=== PATIENT | female | born 2000 | race Caucasian/White ===

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

== ENCOUNTER 2019-05-10 12:38 | Inpatient (IN) ==
[2019-05-10 13:26] LABS: VBG HCO3 21 mEq/L (21-27); VBG PCO2 28 mmHg (41-51); VBG PH 7.48 pH Units (7.32-7.42); VBG PO2 130 mmHg (25-50)
[2019-05-10 13:29] LABS: Basophils % 0.1 %; Hematocrit 36.4 % (35.3-44.9); Hemoglobin 12.3 g/dL (11.5-15.4); Immature Granulocytes % 0.6 % (0-4); Lymphocytes # 1.5 K/mcL (0.6-4.6); Lymphocytes % 7.9 %; Mean Corpuscular HGB Conc 33.8 g/dL (31.6-35.5); Mean Corpuscular Hemoglobin 30.6 pg (28.0-33.3); Mean Corpuscular Volume 90.5 fL (83.0-100.0); Mean Platelet Volume 10.1 fL (9.4-12.4); Monocytes # 2.8 K/mcL (0.0-1.3); Monocytes % 14.2 %; Platelet Count 201 K/mcL (140-400); Red Blood Count 4.02 M/mcL (3.82-4.97); Red Cell Distribution Width 12.3 % (11.5-14.5); Segmented Neutrophils % 77.2 %; White Blood Count 19.4 K/mcL (4.3-11.1)
[2019-05-10] MEDS: 0.9 % Sodium Chloride 1,000 ML IVC SCH ×3 (13:30→16:44)
--- NOTE | 2019-05-10 13:34 | Emergency Department Note ---
Disposition Clinical Impression: Fever Qualifiers: Fever type: unspecified Qualified Code(s): R50.9 - Fever, unspecified Disposition: Still a Patient Condition: Fair Referrals: Eliseo Campbell DO [Primary Care Provider] - Time of Disposition: 13:34 General Adult HPI - General Chief complaint: ED Nausea/Vomiting/Diarrhea Stated complaint: "poss dka" Time Seen by Provider: 05/10/19 12:44 Source: patient Limitations: no limitations - History of Present Illness Pain Scale: 10 - Related Data Home Medications Medication Instructions Recorded Confirmed Lantus 65 unit SQ HS 02/11/19 04/22/19 NovoLOG SQ 5-6XD PRN 02/11/19 Previous Rx's Medication Instructions Recorded cephALEXin [Keflex] 500 mg PO QID #28 capsule 04/20/19 Ciprofloxacin [Cipro] 500 mg PO BID #14 tablet 04/22/19 Allergies Allergy/AdvReac Type Severity Reaction Status Date / Time insulin glargine AdvReac Rash Verified 04/22/19 01:02 [From Basaglar KwikPen U-100 Insulin] sulfamethoxazole AdvReac See Verified 04/22/19 01:02 [From Bactrim] Comments trimethoprim [From Bactrim] AdvReac See Verified 04/22/19 01:02 Comments Past Medical History - Past Medical History Medical history: Reports: non-contributory, asthma, diabetes Surgical history: Reports: non-contributory, other Psychiatric history: Reports: anxiety, ADHD, bipolar, depression, PTSD - Social History Smoking Status: Current every day smoker Smokeless Tobacco Status: No Alcohol use: Reports: none Drug use: Reports: none Physical Exam - General Limitations: no limitations General appearance: alert, in no apparent distress Course Vital Signs Temperature 102.4 F H 05/10/19 12:39 Pulse Rate 140 05/10/19 12:39 Respiratory Rate 18 05/10/19 12:39 Blood Pressure 107/75 05/10/19 12:39 O2 Sat by Pulse Oximetry 97 05/10/19 12:39 Temperature 102.4 F H 05/10/19 12:39 Pulse Rate 140 05/10/19 12:39 Respiratory Rate 18 05/10/19 12:39 Blood Pressure 107/75 05/10/19 12:39 O2 Sat by Pulse Oximetry 97 05/10/19 12:39 Oxygen Delivery Oxygen Delivery Room Air Attestation Statement - Attestation Attestation: I reviewed the residents documentation and agree with the residents assessment and plan of care. I have personally had face to face time with the patient. (Brief History, Brief Exam, and MDM) I personally supervised and was present for the sinha/critical portions of the following procedures completed by the resident: EKG 18 year old female presents to the ED with complaints of ketones and fever and vomitting with low back pain. PAtient states that she is a type I diabetic and otherwise follows at [facility] for her diabetes management. Patient states that she was otherwise treated for a kidney infection one month ago and may have been in DKA then and was offered admission or transfer and she declined because she did not think she was in DKA because he bicarb was otherwise normal Patinet appears to be presensting simliarly now. She states that her care team most recently re-adjusted and lwoered her insulin therapy and she thinks this may hev thrown her into DKA. We have started sepsis prpotocol and will otherwise evluate for DKA and then admit/transfer
[2019-05-10] MEDS ORDERED: cefTRIAXone 1,000 MG in 0.9 % Sodium Chloride Mini Bag 100 ML IVPB ONE (13:35)
[2019-05-10 13:40] LABS: INR 1.2; Prothrombin Time 13.2 Seconds (9.4-12.1)
[2019-05-10 13:43] LABS: Activated Partial Thrombo Time 28.8 Seconds (26.0-36.0)
[2019-05-10 13:44] LABS: Bilirubin,Urine Negative (Negative); Blood,Urine Small (Negative); Clarity,Urine Cloudy (Clear); Color,Urine Yellow (Yellow); Glucose,Urine (UA) Normal (Normal); Ketones,Urine 40 mg/dL (Negative); Leukocyte Esterase,Urine Large (Negative); Nitrite,Urine Positive (Negative); PH,Urine 6.5 pH Units (5.0-8.0); Protein,Urine 30 mg/dL (Neg-Trace); Urobilinogen,Urine Normal (Normal)
[2019-05-10 13:46] LABS: Bacteria,Urine Many per hpf (None-Few); Hyaline Casts,Urine None Seen per lpf (None-Few); Squamous Epithelial Cell,Urine Many per lpf (None-Few); WBC,Urine TNTC per hpf (0-3)
[2019-05-10 13:59] LABS: Troponin I < 0.03 ng/mL (< 0.04)
[2019-05-10 14:02] LABS: Alanine Aminotransferase 10 Units/L (7-52); Albumin/Globulin Ratio 1.3 (1.1-2.2); Alkaline Phosphatase 75 Units/L (34-104); Aspartate Amino Transferase 13 Units/L (13-39); BUN/Creatinine Ratio 10 (6-26); Bilirubin,Direct 0.1 mg/dL (0.0-0.2); Bilirubin,Indirect 0.6 mg/dL (0.0-1.2); Bilirubin,Total 0.7 mg/dL (0.3-1.0); Blood Urea Nitrogen 5 mg/dL (6-20); Calcium 9.3 mg/dL (8.6-10.3); Carbon Dioxide 23 mEq/L (23-29); Chloride 101 mEq/L (98-107); Globulin 3.1 g/dL (2.4-3.5); Glucose 107 mg/dL (70-105); Lipase < 3 Units/L (11-82); Magnesium 1.7 mg/dL (1.6-2.6); Osmolality,Calculated 280 (280-300); Phosphorous 2.5 mg/dL (2.7-4.5); Potassium 3.6 mEq/L (3.5-5.1); Sodium 136 mEq/L (136-145); Total Protein 7.1 g/dL (6.4-8.9); eGFR For African Americans > 60; eGFR For Non-African Americans > 60
--- NOTE | 2019-05-10 14:12 | Emergency Department Note ---
Disposition Clinical Impression: Pyelonephritis Fever Qualifiers: Fever type: unspecified Qualified Code(s): R50.9 - Fever, unspecified Sepsis Qualifiers: Sepsis type: sepsis due to unspecified organism Qualified Code(s): A41.9 - Sepsis, unspecified organism Type 1 diabetes mellitus Qualifiers: Diabetes mellitus complication status: with other specified complication Qualified Code(s): E10.69 - Type 1 diabetes mellitus with other specified complication Disposition: Admitted As Inpatient Condition: Fair Referrals: Eliseo Campbell DO [Primary Care Provider] - Forms: ED Satisfaction Letter Time of Disposition: 14:17 General Adult HPI - General Chief complaint: ED Nausea/Vomiting/Diarrhea Stated complaint: "poss dka" Time Seen by Provider: 05/10/19 12:44 Source: patient Mode of arrival: ambulatory Limitations: no limitations Nursing Notes Reviewed: Yes Vital Signs Reviewed: Yes - History of Present Illness HPI Narrative: 18-year-old female to see emergency department for lower back pain, nausea and not feeling well. Patient is a type I diabetic is insulin-dependent does have an insulin pump. Said her blood sugars have been a little more erratic than normal all up in the 200s and then into the 80s. Said normally she is between 100 and 120. She says she does not feel like she is in DKA is normally she has abdominal pain this times for back pain. She recently was diagnosed with uri nary tract infection back on April 21 she was first started on Keflex that was changed to ciprofloxacin. Patient has not been she did complete the entire course has not been on antibiotics since then. She is not having any dysuria at this time is complaining of his lower back pain. She is not having any abdominal pain sure she has been nauseous with one episode nonbilious nonbloody emesis. Otherwise no other complaints at this time. Pain Scale: 10 - Related Data Home Medications Medication Instructions Recorded Confirmed Lantus 65 unit SQ HS 02/11/19 04/22/19 NovoLOG SQ 5-6XD PRN 02/11/19 Previous Rx's Medication Instructions Recorded cephALEXin [Keflex] 500 mg PO QID #28 capsule 04/20/19 Ciprofloxacin [Cipro] 500 mg PO BID #14 tablet 04/22/19 Allergies Allergy/AdvReac Type Severity Reaction Status Date / Time insulin glargine AdvReac Rash Verified 06/07/19 01:02 [From Basaglar KwikPen U-100 Insulin] sulfamethoxazole AdvReac See Verified 04/22/19 01:02 [From Bactrim] Comments trimethoprim [From Bactrim] AdvReac See Verified 04/22/19 01:02 Comments All systems ED: reviewed and negative except as stated. Review of Systems: As Per HPI Past Medical History - Past Medical History Attestation: Yes The following information was validated with the patient. Source: patient Medical history: Reports: non-contributory, asthma, diabetes Surgical history: Reports: non-contributory, other Psychiatric history: Reports: anxiety, ADHD, bipolar, depression, PTSD - Social History Smoking Status: Current every day smoker Smokeless Tobacco Status: No Alcohol use: Reports: none Drug use: Reports: none Physical Exam - General Limitations: no limitations General appearance: alert, in no apparent distress - Head Head exam: atraumatic, normocephalic, normal inspection - Eye Eye exam: Present: normal appearance, PERRL, EOMI - ENT ENT exam: normal exam, normal oropharynx, mucous membranes moist - Neck Neck exam: Present: normal inspection, full ROM, trachea midline - Chest Chest inspection: Present: normal inspection, symmetric chest wall rise - Respiratory Respiratory exam: Present: normal lung sounds bilaterally - Cardiovascular Cardiovascular exam: Present: regular rate, normal rhythm, normal heart sounds - Abdominal Exam Abdominal exam: Present: soft, Non-Tender. Absent: tenderness, distention, guarding, rebound, rigidity, psoas sign, obturator sign, heel tap sign, 's sign, Rovsing's sign, tenderness at McBurney's Point - Extremities Exam Extremities exam: Present: normal inspection, full ROM. Absent: tenderness, pedal edema - Back Exam Back exam: Present: normal inspection, full ROM. Absent: tenderness, CVA tenderness (R), CVA tenderness (L) - Neurological Exam Neurological exam: Present: alert, oriented X3 - Skin Skin exam: Present: warm, dry, intact, normal color Course Vital Signs Temperature 102.4 F H 05/10/19 12:39 Pulse Rate 140 05/10/19 12:39 Respiratory Rate 18 05/10/19 12:39 Blood Pressure 107/75 05/10/19 12:39 O2 Sat by Pulse Oximetry 97 05/10/19 12:39 Temperature 102.4 F H 05/10/19 12:39 Pulse Rate 123 05/10/19 13:51 Respiratory Rate 18 05/10/19 13:51 Blood Pressure 129/64 05/10/19 13:51 O2 Sat by Pulse Oximetry 99 05/10/19 13:51 Oxygen Delivery Oxygen Delivery Room Air Medical Decision Making - MDM Narrative Medical decision making narrative: Patient presented here for abnormal blood sugars as well as lower back pain. When we saw patient she did not seem be in signs of DKA but she was diaphoretic. She is not having any Kussmaul breathing. Labs came back not showing patient to be in DKA. Her VBG was not showing any acidosis. Patient did receive 1 L of IV fluids. Urinalysis came back nitrite positive based on previous culture it is sensitive to ceftriaxone so we did give her as dose of IV ceftriaxone at this time. I am diagnosing patient with acute pyelonephritis causing abnormal blood sugars. I spoke with patient about admission and she is going to need IV antibiotics and she does agree with this plan. Patient did meet Sirs criteria she is in sepsis at this time is not any severe sepsis or septic shock. Patient did receive her 30 mL/kg bolus with getting 2 L of IV fluids. Patient responded well that. She was never hypotensive. Never needed pressors.. Did speak with the hospitalist Dr. Ball who agreed to accept the patient to their service. Patient is admitted in stable condition. They did request a CT abdomen and pelvis with contrast to be done and they will follow up on the results. I updated the patient of this and a great this plan. - Medical Records Medical records reviewed: Yes I reviewed the patient's medical records. - Lab Data Lab results reviewed: Yes I reviewed the patient's lab results. Result diagrams: 05/10/19 13:06 05/10/19 13:06 Lab Results 05/10/19 05/10/19 05/10/19 Range/Units 13:06 13:06 13:06 WBC 19.4 H (4.3-11.1) K/mcL RBC 4.02 (3.82-4.97) M/mcL Hgb 12.3 (11.5-15.4) g/dL Hct 36.4 (35.3-44.9) % MCV 90.5 (83.0-100.0) fL MCH 30.6 (28.0-33.3) pg MCHC 33.8 (31.6-35.5) g/dL RDW 12.3 (11.5-14.5) % Plt Count 201 (140-400) K/mcL MPV 10.1 (9.4-12.4) fL Immature Gran % 0.6 (0-4) % Seg Neutrophils % 77.2 % Lymphocytes % 7.9 % Monocytes % 14.2 % Eosinophils % 0.0 % Basophils % 0.1 % Neutrophils # 15.0 H (1.6-8.9) K/mcL Lymphocytes # 1.5 (0.6-4.6) K/mcL Monocytes # 2.8 H (0.0-1.3) K/mcL Eosinophils # 0.0 (0.0-0.6) K/mcL Basophils # 0.0 (0.0-0.2) K/mcL PT 13.2 H (9.4-12.1) Seconds INR 1.2 APTT 28.8 (26.0-36.0) Seconds VBG pH (7.32-7.42) pH Units VBG pCO2 (41-51) mmHg VBG pO2 (25-50) mmHg VBG HCO3 (21-27) mEq/L Sodium 136 (136-145) mEq/L Potassium 3.6 (3.5-5.1) mEq/L Chloride 101 (98-107) mEq/L Carbon Dioxide 23 (23-29) mEq/L BUN 5 L (6-20) mg/dL Creatinine 0.52 L (0.60-1.20) mg/dL Est GFR ( Amer) > 60 Est GFR (Non-Af Amer) > 60 BUN/Creatinine Ratio 10 (6-26) Glucose 107 H (70-105) mg/dL Calculated Osmolality 280 (280-300) Lactic Acid (0.5-2.2) mmol/L Calcium 9.3 (8.6-10.3) mg/dL Phosphorus 2.5 L (2.7-4.5) mg/dL Magnesium 1.7 (1.6-2.6) mg/dL Total Bilirubin 0.7 (0.3-1.0) mg/dL Direct Bilirubin 0.1 (0.0-0.2) mg/dL Indirect Bilirubin 0.6 (0.0-1.2) mg/dL AST 13 (13-39) Units/L ALT 10 (7-52) Units/L Alkaline Phosphatase 75 (34-104) Units/L Troponin I < 0.03 (< 0.04) ng/mL Serum Total Protein 7.1 (6.4-8.9) g/dL Albumin 4.0 (3.5-5.7) g/dL Globulin 3.1 (2.4-3.5) g/dL Albumin/Globulin Ratio 1.3 (1.1-2.2) Lipase < 3 L (11-82) Units/L Beta-Hydroxybutyric Acd (0.02-0.27) mmol/L Serum , Qual (Negative) Urine Color (Yellow) Urine Clarity (Clear) Urine pH (5.0-8.0) pH Units Ur Specific [place] (1.010-1.025) Urine Protein (Neg-Trace) mg/dL Urine Glucose (UA) (Normal) mg/dL Urine Ketones (Negative) mg/dL Urine Blood (Negative) Urine Nitrite (Negative) Urine Bilirubin (Negative) Urine Urobilinogen (Normal) mg/dL Ur Leukocyte Esterase (Negative) Urine Microscopic RBC (0-3) per hpf Urine Microscopic WBC (0-3) per hpf Ur Squamous Epith Cells (None-Few) per lpf Urine Bacteria (None-Few) per hpf Hyaline Casts (None-Few) per lpf Ur Culture Indicated? (NO) 05/10/19 05/10/19 05/10/19 Range/Units 13:06 13:06 13:06 WBC (4.3-11.1) K/mcL RBC (3.82-4.97) M/mcL Hgb (11.5-15.4) g/dL Hct (35.3-44.9) % MCV (83.0-100.0) fL MCH (28.0-33.3) pg MCHC (31.6-35.5) g/dL RDW (11.5-14.5) % Plt Count (140-400) K/mcL MPV (9.4-12.4) fL Immature Gran % (0-4) % Seg Neutrophils % % Lymphocytes % % Monocytes % % Eosinophils % % Basophils % % Neutrophils # (1.6-8.9) K/mcL Lymphocytes # (0.6-4.6) K/mcL Monocytes # (0.0-1.3) K/mcL Eosinophils # (0.0-0.6) K/mcL Basophils # (0.0-0.2) K/mcL PT (9.4-12.1) Seconds INR APTT (26.0-36.0) Seconds VBG pH (7.32-7.42) pH Units VBG pCO2 (41-51) mmHg VBG pO2 (25-50) mmHg VBG HCO3 (21-27) mEq/L Sodium (136-145) mEq/L Potassium (3.5-5.1) mEq/L Chloride (98-107) mEq/L Carbon Dioxide (23-29) mEq/L BUN (6-20) mg/dL Creatinine (0.60-1.20) mg/dL Est GFR ( Amer) Est GFR (Non-Af Amer) BUN/Creatinine Ratio (6-26) Glucose (70-105) mg/dL Calculated Osmolality (280-300) Lactic Acid 0.7 (0.5-2.2) mmol/L Calcium (8.6-10.3) mg/dL Phosphorus (2.7-4.5) mg/dL Magnesium (1.6-2.6) mg/dL Total Bilirubin (0.3-1.0) mg/dL Direct Bilirubin (0.0-0.2) mg/dL Indirect Bilirubin (0.0-1.2) mg/dL AST (13-39) Units/L ALT (7-52) Units/L Alkaline Phosphatase (34-104) Units/L Troponin I (< 0.04) ng/mL Serum Total Protein (6.4-8.9) g/dL Albumin (3.5-5.7) g/dL Globulin (2.4-3.5) g/dL Albumin/Globulin Ratio (1.1-2.2) Lipase (11-82) Units/L Beta-Hydroxybutyric Acd 0.80 H (0.02-0.27) mmol/L Serum , Qual Negative (Negative) Urine Color (Yellow) Urine Clarity (Clear) Urine pH (5.0-8.0) pH Units Ur Specific [place] (1.010-1.025) Urine Protein (Neg-Trace) mg/dL Urine Glucose (UA) (Normal) mg/dL Urine Ketones (Negative) mg/dL Urine Blood (Negative) Urine Nitrite (Negative) Urine Bilirubin (Negative) Urine Urobilinogen (Normal) mg/dL Ur Leukocyte Esterase (Negative) Urine Microscopic RBC (0-3) per hpf Urine Microscopic WBC (0-3) per hpf Ur Squamous Epith Cells (None-Few) per lpf Urine Bacteria (None-Few) per hpf Hyaline Casts (None-Few) per lpf Ur Culture Indicated? (NO) 05/10/19 05/10/19 Range/Units 13:23 13:35 WBC (4.3-11.1) K/mcL RBC (3.82-4.97) M/mcL Hgb (11.5-15.4) g/dL Hct (35.3-44.9) % MCV (83.0-100.0) fL MCH (28.0-33.3) pg MCHC (31.6-35.5) g/dL RDW (11.5-14.5) % Plt Count (140-400) K/mcL MPV (9.4-12.4) fL Immature Gran % (0-4) % Seg Neutrophils % % Lymphocytes % % Monocytes % % Eosinophils % % Basophils % % Neutrophils # (1.6-8.9) K/mcL Lymphocytes # (0.6-4.6) K/mcL Monocytes # (0.0-1.3) K/mcL Eosinophils # (0.0-0.6) K/mcL Basophils # (0.0-0.2) K/mcL PT (9.4-12.1) Seconds INR APTT (26.0-36.0) Seconds VBG pH 7.48 H (7.32-7.42) pH Units VBG pCO2 28 L (41-51) mmHg VBG pO2 130 H (25-50) mmHg VBG HCO3 21 (21-27) mEq/L Sodium (136-145) mEq/L Potassium (3.5-5.1) mEq/L Chloride (98-107) mEq/L Carbon Dioxide (23-29) mEq/L BUN (6-20) mg/dL Creatinine (0.60-1.20) mg/dL Est GFR ( Amer) Est GFR (Non-Af Amer) BUN/Creatinine Ratio (6-26) Glucose (70-105) mg/dL Calculated Osmolality (280-300) Lactic Acid (0.5-2.2) mmol/L Calcium (8.6-10.3) mg/dL Phosphorus (2.7-4.5) mg/dL Magnesium (1.6-2.6) mg/dL Total Bilirubin (0.3-1.0) mg/dL Direct Bilirubin (0.0-0.2) mg/dL Indirect Bilirubin (0.0-1.2) mg/dL AST (13-39) Units/L ALT (7-52) Units/L Alkaline Phosphatase (34-104) Units/L Troponin I (< 0.04) ng/mL Serum Total Protein (6.4-8.9) g/dL Albumin (3.5-5.7) g/dL Globulin (2.4-3.5) g/dL Albumin/Globulin Ratio (1.1-2.2) Lipase (11-82) Units/L Beta-Hydroxybutyric Acd (0.02-0.27) mmol/L Serum , Qual (Negative) Urine Color Yellow (Yellow) Urine Clarity Cloudy A (Clear) Urine pH 6.5 (5.0-8.0) pH Units Ur Specific [place] 1.010 (1.010-1.025) Urine Protein 30 H (Neg-Trace) mg/dL Urine Glucose (UA) Normal (Normal) mg/dL Urine Ketones 40 H (Negative) mg/dL Urine Blood Small H (Negative) Urine Nitrite Positive A (Negative) Urine Bilirubin Negative (Negative) Urine Urobilinogen Normal (Normal) mg/dL Ur Leukocyte Esterase Large H (Negative) Urine Microscopic RBC 5-15 H (0-3) per hpf Urine Microscopic WBC TNTC H (0-3) per hpf Ur Squamous Epith Cells Many H (None-Few) per lpf Urine Bacteria Many H (None-Few) per hpf Hyaline Casts None Seen (None-Few) per lpf Ur Culture Indicated? YES A (NO) - EKG Data EKG #1 EKG attestation: Yes I reviewed and interpreted this EKG. EKG results narrative: EKG done at 1321 review myself and attending shows sinus tachycardia rate of 128, MT interval 129, QRS 84, QTc 409. His no acute ST changes no acute T-wave changes no signs of ischemia. No signs of hypertrophy, heart rate, heart block. No WPW/Brugada/HOCM. EKG unchanged when compared with old one done 03/15/18
[2019-05-10] MEDS ORDERED: Isovue-370 500 ML BOTTLE IVP ONE (14:25)
--- NOTE | 2019-05-10 15:47 | Internal Med History&Physical ---
Date of Encounter: 05/11/19 Time of Encounter: 15:47 Internal Medicine - H&P: HPI Chief complaint: fever History of present illness: Ms. Benedict is a 18 year old female [place] medical history of diabetes mellitus type 1 on insulin pump and history of recurrent UTI who presented to the ER with a fever, nausa and lower back pain. the patient was diagnosed recently with UTI and treated with Keflex that later was switched to ciprofloxacin. She denies any vomiting, that a.m., abdomen and main, hematuria. the patient had recent CAT scan that was suggestive of pyelonephritis was no abscess formation, and repeat CAT scan was ordered and bending, urinalysis suggestive of UTI, blood culture and urine culture were obtained. Urine culture from prior visits was reviewed and antibiotic was a started according to the sensitivity. The patient was admitted for further evaluation and management. Past Med Surg Social Fam HX - Past Medical History Medical history: non-contributory, asthma, diabetes Additional medical history: Type I Diabetes Psychiatric history: anxiety, ADHD, bipolar, depression, PTSD - Past Surgical History Surgical History: non-contributory, other Additional surgical history: tonsillectomy - Social History Smoking Status: Current every day smoker Smokeless Tobacco Status: No Alcohol use: none Drug use: none Internal Medicine - H&P: Meds Insulin ASPART [NovoLOG] 0 unit SQ AD 05/10/19 [History] Allergy/AdvReac Type Severity Reaction Status Date / Time insulin glargine AdvReac Rash Verified 04/22/19 01:02 [From Basaglar KwikPen U-100 Insulin] sulfamethoxazole AdvReac See Verified 04/22/19 01:02 [From Bactrim] Comments trimethoprim [From Bactrim] AdvReac See Verified 04/22/19 01:02 Comments All Systems PM: A 10-system review of systems was performed and is negative for pertinent findings except as documented above in the HPI. - Constitutional Vitals: Temp Pulse Resp BP Pulse Ox 98.5 F 114 20 124/66 100 05/10/19 15:39 05/10/19 15:39 05/10/19 15:39 05/10/19 15:39 05/10/19 15:39 General appearance: Present: A&O X 3 - Head Head exam: Present: atraumatic, normocephalic - Neck Neck exam general surgery: Present: supple, trachea midline. Absent: lymphadenopathy - Respiratory Respiratory exam: Present: CTAB. Absent: accessory muscle use, rales, rhonchi, wheezes - Cardiovascular Cardiovascular exam: Present: RRR, +S1, +S2. Absent: diastolic murmur, gallop, rubs, systolic murmur - GI/Abdominal GI/Abdominal exam: Present: normal bowel sounds, soft, no peritoneal signs. Absent: distended, tenderness - Extremities Exam Extremities exam: Present: warm, radial pulses palpable and symmetrical. Absent: calf tenderness, cyanotic, pedal edema Internal Med - H&P Results - Labs CBC & Chem 7: 05/10/19 13:06 05/10/19 13:06 Labs: Short CBC 05/10/19 Range/Units 13:06 WBC 19.4 H (4.3-11.1) K/mcL Hgb 12.3 (11.5-15.4) g/dL Hct 36.4 (35.3-44.9) % Plt Count 201 (140-400) K/mcL Neutrophils # 15.0 H (1.6-8.9) K/mcL BMP 05/10/19 13:06 Sodium 136 Potassium 3.6 Chloride 101 Carbon Dioxide 23 BUN 5 L Creatinine 0.52 L Glucose 107 H Calcium 9.3 Cardiac Enzymes 05/10/19 Range/Units 13:06 Troponin I < 0.03 (< 0.04) ng/mL Liver Function 05/10/19 Range/Units 13:06 Total Bilirubin 0.7 (0.3-1.0) mg/dL Direct Bilirubin 0.1 (0.0-0.2) mg/dL AST 13 (13-39) Units/L ALT 10 (7-52) Units/L Alkaline Phosphatase 75 (34-104) Units/L Albumin 4.0 (3.5-5.7) g/dL Urine 05/10/19 Range/Units 13:35 Urine Color Yellow (Yellow) Urine Clarity Cloudy A (Clear) Urine pH 6.5 (5.0-8.0) pH Units Ur Specific [place] 1.010 (1.010-1.025) Urine Protein 30 H (Neg-Trace) mg/dL Urine Glucose (UA) Normal (Normal) mg/dL - ABG Interpretation ABG results: 05/10/19 13:23 VBG pH 7.48 H VBG pCO2 28 L VBG pO2 130 H VBG HCO3 21 - Impressions ITS Impressions Abdomen/Pelvis CT 05/10/19 14:25 IMPRESSION: 1. Focal area of hypoenhancement in the upper pole of the right kidney compatible with acute pyelonephritis. 2. Mild circumferential wall thickening of the bladder in keeping with history of cystitis. 3. Increased free fluid in the pelvis likely reactive, however, there is increased fluid along the adnexa bilaterally and hydrosalpinx cannot be excluded. Consider further evaluation with ultrasound. D/ / 05/10/2019 15:25:33 Sonal Diaz MD / Juani Avila Interpreting Provider: Sonal Diaz MD - Assessment and Plan (1) Pyelonephritis Current Visit: Yes Status: Acute Assessment and plan: we'll continue antibiotics as per prior culture sensitivity, blood culture and urine culture were obtained. We'll continue to follow-up and adjust antibiotic regimen accordingly. (2) Sepsis Current Visit: Yes Status: Acute Assessment and plan: sepsis protocol was initiated, will continue IV hydration with isotonic fluid, continue antibiotic regimen. Qualifiers: Sepsis type: sepsis due to unspecified organism Qualified Code(s): A41.9 - Sepsis, unspecified organism (3) Type 1 diabetes mellitus Current Visit: Yes Status: Acute Assessment and plan: we'll continue home insulin pump. Qualifiers: Diabetes mellitus complication status: with other specified complication Qualified Code(s): E10.69 - Type 1 diabetes mellitus with other specified complication (4) DVT prophylaxis Current Visit: No Status: Acute - Time Spent With Patient Total time spent is greater than 50% in coordination of care (as documented) at patient's floor/unit and/or counseling patient:
[2019-05-10] MEDS ORDERED: Naloxone 0.4 MG/ML INJ IVP PRN (15:49)
[2019-05-10] MEDS: cefOXitin 1,000 MG in Water for inj. (sterile) 10 ML IVP SCH (16:44)
[2019-05-10] MEDS: *HR* HYDROcodone/Acet 5/325 mg TABLET PO PRN (19:13)
[2019-05-10] MEDS ORDERED: Acetaminophen IV 500 MG/50 ML INFUS..BTL IVPB ONE (20:11)
[2019-05-11] MEDS: cefOXitin 1,000 MG in Water for inj. (sterile) 10 ML IVP SCH ×3 (00:33→16:48)
[2019-05-11] MEDS: 0.9 % Sodium Chloride 1,000 ML IVC SCH (00:33)
[2019-05-11] MEDS: Ondansetron 4 MG/2 ML VIAL IVP PRN ×2 (01:34→08:51)
[2019-05-11] MEDS: Acetaminophen 325 MG TABLET PO PRN ×3 (01:43→21:27)
[2019-05-11 05:57] LABS: Basophils % 0.1 %; Hematocrit 32.2 % (35.3-44.9); Immature Granulocytes % 0.5 % (0-4); Lymphocytes # 1.5 K/mcL (0.6-4.6); Lymphocytes % 9.9 %; Mean Corpuscular HGB Conc 33.2 g/dL (31.6-35.5); Mean Corpuscular Volume 93.3 fL (83.0-100.0); Mean Platelet Volume 10.4 fL (9.4-12.4); Monocytes # 2.7 K/mcL (0.0-1.3); Monocytes % 17.5 %; Platelet Count 177 K/mcL (140-400); Red Blood Count 3.45 M/mcL (3.82-4.97); Red Cell Distribution Width 12.4 % (11.5-14.5); White Blood Count 15.3 K/mcL (4.3-11.1)
[2019-05-11 05:59] LABS: Hemoglobin 10.7 g/dL (11.5-15.4)
[2019-05-11 06:16] LABS: INR 1.2; Prothrombin Time 13.5 Seconds (9.4-12.1)
[2019-05-11 06:19] LABS: Activated Partial Thrombo Time 30.1 Seconds (26.0-36.0)
[2019-05-11 06:46] LABS: Alanine Aminotransferase 12 Units/L (7-52); Albumin 3.3 g/dL (3.5-5.7); Albumin/Globulin Ratio 1.3 (1.1-2.2); Alkaline Phosphatase 62 Units/L (34-104); Aspartate Amino Transferase 14 Units/L (13-39); BUN/Creatinine Ratio 10 (6-26); Bilirubin,Total 0.4 mg/dL (0.3-1.0); Blood Urea Nitrogen 5 mg/dL (6-20); Calcium 8.2 mg/dL (8.6-10.3); Carbon Dioxide 24 mEq/L (23-29); Chloride 108 mEq/L (98-107); Chol/HDL Ratio 3.8 (0-4.9); Cholesterol 123 mg/dL (< 200); Globulin 2.5 g/dL (2.4-3.5); Glucose 78 mg/dL (70-105); HDL Cholesterol 32 mg/dL (40-59); LDL Cholesterol,Calculated 77 mg/dL (0-99); Magnesium 1.9 mg/dL (1.6-2.6); Osmolality,Calculated 286 (280-300); Potassium 3.8 mEq/L (3.5-5.1); Sodium 140 mEq/L (136-145); Total Protein 5.8 g/dL (6.4-8.9); Triglycerides 70 mg/dL (< 150); eGFR For African Americans > 60; eGFR For Non-African Americans > 60
[2019-05-11] MEDS: *HR* HYDROcodone/Acet 5/325 mg TABLET PO PRN (09:13)
[2019-05-11] MEDS ORDERED: *HR* Dextrose 50 % in Water (Syg) 50 ML SYRINGE IVP PRN (09:44)
[2019-05-11] MEDS ORDERED: D5% in Water 1,000 ML IVC PRN (09:44)
[2019-05-11] MEDS ORDERED: Dextrose Gel 15 GM/37.5 ML TUBE PO PRN ×2 (09:44)
[2019-05-11] MEDS ORDERED: *HR* Promethazine 25 MG/ML VIAL IVP PRN (12:00)
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
[2019-05-11] MEDS: Nicotine 14 MG PATCH.TD24 TD SCH (14:31)
[2019-05-11] MEDS: Ringers Solution, Lactated 1,000 ML IVC SCH (14:32)
--- NOTE | 2019-05-11 18:22 | Electrocardiograph Report ---
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
[2019-05-11 21:31] LABS: Chlamydia Trachomatis DNA Ur NOT DETECTED (Not Detect)
[2019-05-12] MEDS: Ringers Solution, Lactated 1,000 ML IVC SCH ×2 (00:38→11:24)
[2019-05-12] MEDS: cefOXitin 1,000 MG in Water for inj. (sterile) 10 ML IVP SCH ×2 (00:38→08:33)
[2019-05-12] MEDS: *HR* HYDROcodone/Acet 5/325 mg TABLET PO PRN (04:45)
[2019-05-12] MEDS: Acetaminophen 325 MG TABLET PO PRN (04:52)
[2019-05-12] MEDS ORDERED: Nystatin POWDER 30 GM BOTTLE TP SCH (06:00)
[2019-05-12] MEDS: Nicotine 14 MG PATCH.TD24 TD SCH (08:34)
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
[2019-05-12 12:15] VITALS: BP 131/71
== END 2019-05-12 16:29 | disposition home or self-care (01) | DRG 720 ==
LOC: EMEROOARM 12:38 → 2ANU 12:38 → SUATTDRO 18:51
PROVIDERS: ADMIT Internal Medicine Nephrology; ATTEND Internal Medicine

== ENCOUNTER 2019-07-07 02:10 | Inpatient (IN) ==
[2019-07-07] MEDS ORDERED: 0.9 % Sodium Chloride 1,000 ML IVC ONE ×2 (02:26→04:00)
[2019-07-07] MEDS ORDERED: *HR* Promethazine 25 MG/ML VIAL IVP ONE (02:26)
[2019-07-07] MEDS ORDERED: Isovue-370 500 ML BOTTLE IVP ONE (02:34)
[2019-07-07 03:12] LABS: Basophils # 0.1 K/mcL (0.0-0.2); Basophils % 0.2 %; Hemoglobin 11.3 g/dL (11.5-15.4); Immature Granulocytes % 1.2 % (0-4); Lymphocytes # 0.7 K/mcL (0.6-4.6); Lymphocytes % 2.8 %; Mean Corpuscular HGB Conc 34.2 g/dL (31.6-35.5); Mean Corpuscular Hemoglobin 29.7 pg (28.0-33.3); Mean Corpuscular Volume 86.8 fL (83.0-100.0); Mean Platelet Volume 10.3 fL (9.4-12.4); Monocytes # 2.1 K/mcL (0.0-1.3); Monocytes % 8.3 %; Neutrophils # 21.8 K/mcL (1.6-8.9); Platelet Count 254 K/mcL (140-400); Red Cell Distribution Width 14.1 % (11.5-14.5); Segmented Neutrophils % 87.5 %; White Blood Count 24.9 K/mcL (4.3-11.1)
[2019-07-07 03:28] LABS: Alanine Aminotransferase 9 Units/L (7-52); Albumin 3.2 g/dL (3.5-5.7); Albumin/Globulin Ratio 0.9 (1.1-2.2); Alkaline Phosphatase 298 Units/L (34-104); Aspartate Amino Transferase 12 Units/L (13-39); BUN/Creatinine Ratio 16 (6-26); Bilirubin,Direct 0.3 mg/dL (0.0-0.2); Bilirubin,Indirect 0.2 mg/dL (0.0-1.2); Bilirubin,Total 0.5 mg/dL (0.3-1.0); Blood Urea Nitrogen 13 mg/dL (6-20); Calcium 8.6 mg/dL (8.6-10.3); Carbon Dioxide 19 mEq/L (23-29); Chloride 105 mEq/L (98-107); Globulin 3.5 g/dL (2.4-3.5); Glucose 314 mg/dL (70-105); Lipase 23 Units/L (11-82); Osmolality,Calculated 292 (280-300); Potassium 3.6 mEq/L (3.5-5.1); Sodium 135 mEq/L (136-145); Total Protein 6.7 g/dL (6.4-8.9); eGFR For African Americans > 60 (> 60); eGFR For Non-African Americans > 60 (> 60)
[2019-07-07 03:31] LABS: VBG HCO3 20 mEq/L (21-27); VBG PCO2 34 mmHg (41-51); VBG PH 7.37 pH Units (7.32-7.42); VBG PO2 38 mmHg (25-50)
[2019-07-07 03:32] LABS: Hypochromasia Present (Not Present); Platelet Estimate Normal (Normal)
[2019-07-07] MEDS ORDERED: Morphine Sulfate 2 MG/ML SYRINGE IVP ONE (03:59)
[2019-07-07] MEDS ORDERED: Piperacillin/Tazobactam 3.375 GM in 0.9 % Sodium Chloride Mini Bag 100 ML IVPB ONE (04:24)
[2019-07-07 05:09] LABS: INR 1.5; Prothrombin Time 16.6 Seconds (9.4-12.1)
[2019-07-07 05:11] LABS: Activated Partial Thrombo Time 29.5 Seconds (26.0-36.0)
[2019-07-07 05:55] LABS: Magnesium 1.9 mg/dL (1.6-2.6); Phosphorous 1.4 mg/dL (2.7-4.5)
[2019-07-07] MEDS ORDERED: Naloxone 0.4 MG/ML INJ IVP PRN (08:45)
[2019-07-07] MEDS ORDERED: D5% in Water 1,000 ML IVC PRN (09:58)
[2019-07-07] MEDS ORDERED: *HR* Dextrose 50 % in Water (Syg) 50 ML SYRINGE IVP PRN (09:58)
[2019-07-07] MEDS ORDERED: Dextrose Gel 15 GM/37.5 ML TUBE PO PRN ×2 (09:58)
[2019-07-07] MEDS: 0.9 % Sodium Chloride 1,000 ML IVC SCH (10:24)
[2019-07-07] MEDS: Cefepime HCl 2,000 MG in Water for inj. (sterile) 20 ML IVP SCH ×2 (10:25→21:49)
[2019-07-07] MEDS: Acetaminophen 325 MG TABLET PO PRN (12:30)
[2019-07-07] MEDS: *HR* Heparin 5,000 UNIT/ML VIAL SQ SCH (17:19)
[2019-07-07] MEDS ORDERED: Cefepime HCl 2,000 MG in Water for inj. (sterile) 20 ML IVP SCH (18:00)
[2019-07-07] MEDS ORDERED: Acetaminophen IV 500 MG/50 ML INFUS..BTL IVPB ONE (20:27)
[2019-07-07] MEDS ORDERED: Water for inj. (sterile) 20 ML IV ONE (21:39)
[2019-07-08] MEDS: 0.9 % Sodium Chloride 1,000 ML IVC SCH (00:35)
[2019-07-08] MEDS ORDERED: Ibuprofen 800 MG TABLET PO ONE (01:46)
[2019-07-08] MEDS: *HR* Promethazine 25 MG/ML VIAL IVP PRN (03:29)
[2019-07-08 04:43] LABS: White Blood Count 20.9 K/mcL (4.3-11.1)
[2019-07-08 04:44] LABS: Basophils # 0.1 K/mcL (0.0-0.2); Basophils % 0.2 %; Hematocrit 30.8 % (35.3-44.9); Hemoglobin 10.7 g/dL (11.5-15.4); Immature Granulocytes % 0.6 % (0-4); Lymphocytes # 1.1 K/mcL (0.6-4.6); Lymphocytes % 5.4 %; Mean Corpuscular HGB Conc 34.7 g/dL (31.6-35.5); Mean Corpuscular Hemoglobin 30.4 pg (28.0-33.3); Mean Corpuscular Volume 87.5 fL (83.0-100.0); Mean Platelet Volume 10.2 fL (9.4-12.4); Monocytes # 1.7 K/mcL (0.0-1.3); Monocytes % 8.3 %; Neutrophils # 17.8 K/mcL (1.6-8.9); Platelet Count 235 K/mcL (140-400); Red Blood Count 3.52 M/mcL (3.82-4.97); Red Cell Distribution Width 14.2 % (11.5-14.5); Segmented Neutrophils % 85.5 %
[2019-07-08 05:03] LABS: BUN/Creatinine Ratio 8 (6-26); Blood Urea Nitrogen 6 mg/dL (6-20); Calcium 7.8 mg/dL (8.6-10.3); Carbon Dioxide 18 mEq/L (23-29); Chloride 106 mEq/L (98-107); Glucose 170 mg/dL (70-105); Magnesium 1.8 mg/dL (1.6-2.6); Osmolality,Calculated 280 (280-300); Potassium 2.7 mEq/L (3.5-5.1); Sodium 134 mEq/L (136-145); eGFR For African Americans > 60 (> 60); eGFR For Non-African Americans > 60 (> 60)
[2019-07-08] MEDS: *HR* Heparin 5,000 UNIT/ML VIAL SQ SCH ×2 (05:40→16:17)
[2019-07-08] MEDS ORDERED: Potassium Chloride Elixir 20 MEQ/15 ML UDC PO SCH (09:30)
[2019-07-08] MEDS: Cefepime HCl 2,000 MG in Water for inj. (sterile) 20 ML IVP SCH ×2 (10:05→19:54)
[2019-07-08] MEDS ORDERED: NON-FORMULARY MEDICATION 1 EACH EACH (Subcutaneous Insulin Pump [T:Slim] 1 EACH) MC SCH (10:30)
[2019-07-08] MEDS: Ondansetron 4 MG/2 ML VIAL IVP PRN (14:43)
[2019-07-08] MEDS: Acetaminophen 325 MG TABLET PO PRN ×2 (15:25→22:14)
[2019-07-09] MEDS: Acetaminophen 325 MG TABLET PO PRN ×3 (04:38→17:30)
[2019-07-09 05:01] LABS: Basophils % 0.2 %; Eosinophils # 0.1 K/mcL (0.0-0.6); Eosinophils % 0.3 %; Hematocrit 35.5 % (35.3-44.9); Hemoglobin 11.9 g/dL (11.5-15.4); Lymphocytes # 1.8 K/mcL (0.6-4.6); Lymphocytes % 9.1 %; Mean Corpuscular HGB Conc 33.5 g/dL (31.6-35.5); Mean Corpuscular Hemoglobin 29.8 pg (28.0-33.3); Mean Corpuscular Volume 88.8 fL (83.0-100.0); Mean Platelet Volume 10.4 fL (9.4-12.4); Monocytes # 1.4 K/mcL (0.0-1.3); Neutrophils # 16.1 K/mcL (1.6-8.9); Platelet Count 285 K/mcL (140-400); Red Cell Distribution Width 14.3 % (11.5-14.5); Segmented Neutrophils % 82.4 %; White Blood Count 19.5 K/mcL (4.3-11.1)
[2019-07-09] MEDS: *HR* Heparin 5,000 UNIT/ML VIAL SQ SCH ×2 (05:12→17:30)
[2019-07-09 05:20] LABS: BUN/Creatinine Ratio 9 (6-26); Blood Urea Nitrogen 7 mg/dL (6-20); Calcium 8.7 mg/dL (8.6-10.3); Carbon Dioxide 22 mEq/L (23-29); Chloride 103 mEq/L (98-107); Glucose 80 mg/dL (70-105); Osmolality,Calculated 281 (280-300); Sodium 137 mEq/L (136-145); eGFR For African Americans > 60 (> 60); eGFR For Non-African Americans > 60 (> 60)
[2019-07-09] MEDS: Cefepime HCl 2,000 MG in Water for inj. (sterile) 20 ML IVP SCH ×2 (10:34→22:05)
[2019-07-09] MEDS: *HR* Promethazine 25 MG/ML VIAL IVP PRN ×2 (15:39→23:20)
[2019-07-10] MEDS: Ondansetron 4 MG/2 ML VIAL IVP PRN ×2 (03:53→11:21)
[2019-07-10 05:59] LABS: Basophils % 0.2 %; Eosinophils # 0.1 K/mcL (0.0-0.6); Eosinophils % 0.3 %; Hematocrit 29.9 % (35.3-44.9); Immature Granulocytes % 0.8 % (0-4); Lymphocytes # 1.5 K/mcL (0.6-4.6); Lymphocytes % 8.8 %; Mean Corpuscular HGB Conc 34.1 g/dL (31.6-35.5); Mean Corpuscular Hemoglobin 30.1 pg (28.0-33.3); Mean Corpuscular Volume 88.2 fL (83.0-100.0); Mean Platelet Volume 9.9 fL (9.4-12.4); Monocytes # 1.4 K/mcL (0.0-1.3); Monocytes % 8.4 %; Neutrophils # 13.9 K/mcL (1.6-8.9); Platelet Count 299 K/mcL (140-400); Red Blood Count 3.39 M/mcL (3.82-4.97); Red Cell Distribution Width 14.2 % (11.5-14.5); Segmented Neutrophils % 81.5 %; White Blood Count 17.1 K/mcL (4.3-11.1)
[2019-07-10 06:01] LABS: Hemoglobin 10.2 g/dL (11.5-15.4)
[2019-07-10 06:19] LABS: BUN/Creatinine Ratio 11 (6-26); Blood Urea Nitrogen 7 mg/dL (6-20); Calcium 8.1 mg/dL (8.6-10.3); Carbon Dioxide 26 mEq/L (23-29); Chloride 100 mEq/L (98-107); Glucose 79 mg/dL (70-105); Osmolality,Calculated 279 (280-300); Sodium 136 mEq/L (136-145); eGFR For African Americans > 60 (> 60); eGFR For Non-African Americans > 60 (> 60)
[2019-07-10] MEDS: *HR* Heparin 5,000 UNIT/ML VIAL SQ SCH ×2 (06:26→17:14)
[2019-07-10] MEDS: Cefepime HCl 2,000 MG in Water for inj. (sterile) 20 ML IVP SCH ×2 (11:21→21:41)
[2019-07-11] MEDS: *HR* Heparin 5,000 UNIT/ML VIAL SQ SCH ×2 (05:16→16:14)
[2019-07-11 05:48] LABS: Basophils % 0.2 %; Eosinophils # 0.2 K/mcL (0.0-0.6); Eosinophils % 1.3 %; Hematocrit 32.2 % (35.3-44.9); Hemoglobin 10.9 g/dL (11.5-15.4); Immature Granulocytes % 1.3 % (0-4); Lymphocytes # 1.7 K/mcL (0.6-4.6); Lymphocytes % 13.9 %; Mean Corpuscular HGB Conc 33.9 g/dL (31.6-35.5); Mean Corpuscular Hemoglobin 30.3 pg (28.0-33.3); Mean Corpuscular Volume 89.4 fL (83.0-100.0); Mean Platelet Volume 9.7 fL (9.4-12.4); Monocytes # 1.3 K/mcL (0.0-1.3); Monocytes % 10.4 %; Neutrophils # 8.9 K/mcL (1.6-8.9); Platelet Count 395 K/mcL (140-400); Red Cell Distribution Width 14.2 % (11.5-14.5); Segmented Neutrophils % 72.9 %; White Blood Count 12.2 K/mcL (4.3-11.1)
[2019-07-11 06:12] LABS: BUN/Creatinine Ratio 11 (6-26); Blood Urea Nitrogen 7 mg/dL (6-20); Calcium 8.3 mg/dL (8.6-10.3); Carbon Dioxide 30 mEq/L (23-29); Chloride 101 mEq/L (98-107); Glucose 74 mg/dL (70-105); Osmolality,Calculated 289 (280-300); Potassium 3.1 mEq/L (3.5-5.1); Sodium 141 mEq/L (136-145); eGFR For African Americans > 60 (> 60); eGFR For Non-African Americans > 60 (> 60)
[2019-07-11] MEDS ORDERED: *HR* OxyCODONE/APAP 5/325 TABLET PO PRN (08:02)
[2019-07-11] MEDS: Ondansetron 4 MG/2 ML VIAL IVP PRN (11:05)
[2019-07-11] MEDS: Ibuprofen 800 MG TABLET PO PRN ×2 (11:05→22:17)
[2019-07-12] MEDS: Ondansetron 4 MG/2 ML VIAL IVP PRN (05:41)
[2019-07-12] MEDS: *HR* Heparin 5,000 UNIT/ML VIAL SQ SCH (05:42)
[2019-07-12 08:29] LABS: Basophils % 0.2 %; Eosinophils # 0.1 K/mcL (0.0-0.6); Eosinophils % 0.8 %; Hematocrit 35.5 % (35.3-44.9); Immature Granulocytes % 1.6 % (0-4); Lymphocytes # 2.2 K/mcL (0.6-4.6); Lymphocytes % 13.5 %; Mean Corpuscular HGB Conc 33.8 g/dL (31.6-35.5); Mean Corpuscular Hemoglobin 29.7 pg (28.0-33.3); Mean Corpuscular Volume 87.9 fL (83.0-100.0); Mean Platelet Volume 10.4 fL (9.4-12.4); Monocytes # 1.3 K/mcL (0.0-1.3); Monocytes % 8.3 %; Neutrophils # 12.2 K/mcL (1.6-8.9); Platelet Count 400 K/mcL (140-400); Red Blood Count 4.04 M/mcL (3.82-4.97); Red Cell Distribution Width 14.1 % (11.5-14.5); Segmented Neutrophils % 75.6 %; White Blood Count 16.1 K/mcL (4.3-11.1)
[2019-07-12 08:36] LABS: BUN/Creatinine Ratio 13 (6-26); Blood Urea Nitrogen 7 mg/dL (6-20); Calcium 8.7 mg/dL (8.6-10.3); Carbon Dioxide 27 mEq/L (23-29); Chloride 100 mEq/L (98-107); Glucose 72 mg/dL (70-105); Osmolality,Calculated 289 (280-300); Potassium 3.6 mEq/L (3.5-5.1); Sodium 141 mEq/L (136-145); eGFR For African Americans > 60 (> 60); eGFR For Non-African Americans > 60 (> 60)
[2019-07-12 11:01] VITALS: BP 142/80
== END 2019-07-12 12:13 | disposition home or self-care (01) | DRG 720 ==
LOC: 2ANU 02:10 → EMEROOARM 02:10 → SUATTDRO 05:33 → 2ANU 06:13
PROVIDERS: ADMIT Pediatrics; ATTEND Internal Medicine

== ENCOUNTER 2019-07-16 19:21 | Inpatient (IN) ==
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
[2019-07-16] MEDS ORDERED: 0.9 % Sodium Chloride 1,000 ML IVC ONE (21:32)
--- NOTE | 2019-07-16 21:37 | Emergency Department Note ---
Disposition Clinical Impression: Renal abscess, Pyelonephritis, Leukocytosis, DKA (diabetic ketoacidoses) Disposition: Admitted As Inpatient Condition: Serious Forms: ED Satisfaction Letter Time of Disposition: 00:32 General Adult HPI - General Chief complaint: ED Nausea/Vomiting/Diarrhea Stated complaint: "its my kidneys again" Time Seen by Provider: 07/16/19 21:17 Source: patient Mode of arrival: private vehicle Limitations: no limitations Nursing Notes Reviewed: Yes Vital Signs Reviewed: Yes - History of Present Illness Pain Scale: 0 - Related Data Home Medications Medication Instructions Recorded Confirmed Subcutaneous Insulin Pump [T:Slim] 1 each MC AD 07/07/19 07/07/19 Previous Rx's Medication Instructions Recorded Ciprofloxacin [Cipro] 500 mg PO BID 7 Days #14 tablet 07/12/19 Ondansetron [Zofran ODT] 8 mg SL Q8H PRN 4 Days #12 tab 07/12/19 OxyCODONE/APAP 5/325 [Percocet 1 each PO Q6HR PRN 5 Days #20 07/12/19 5/325 MG] tablet Potassium Chloride 40 meq PO DAILY #5 tab.er.prt 07/12/19 Allergies Allergy/AdvReac Type Severity Reaction Status Date / Time insulin glargine AdvReac Rash Verified 07/07/19 13:58 [From Basaglar KwikPen U-100 Insulin] sulfamethoxazole AdvReac See Verified 07/07/19 13:58 [From Bactrim] Comments trimethoprim [From Bactrim] AdvReac See Verified 07/07/19 13:58 Comments Past Medical History - Past Medical History Medical history: Reports: asthma, diabetes Surgical history: Reports: non-contributory, other Psychiatric history: Reports: anxiety, ADHD, bipolar, depression, PTSD - Social History Smoking Status: Current every day smoker Smokeless Tobacco Status: No Alcohol use: Reports: none Drug use: Reports: none Physical Exam - General Limitations: no limitations Course Vital Signs Temperature 98.7 F 07/16/19 19:46 Pulse Rate 122 07/16/19 19:46 Respiratory Rate 20 07/16/19 19:46 Blood Pressure 101/67 07/16/19 19:46 O2 Sat by Pulse Oximetry 97 07/16/19 19:46 Temperature 98.5 F 07/16/19 21:31 Pulse Rate 94 07/16/19 23:41 Respiratory Rate 15 07/16/19 23:41 Blood Pressure 105/75 07/16/19 23:41 O2 Sat by Pulse Oximetry 98 07/16/19 23:41 Oxygen Delivery Oxygen Delivery Room Air Medical Decision Making - Lab Data Result diagrams: 07/16/19 21:49 07/16/19 21:49 Lab Results 07/16/19 07/16/19 07/16/19 Range/Units 21:16 21:16 21:28 WBC (4.3-11.1) K/mcL RBC (3.82-4.97) M/mcL Hgb (11.5-15.4) g/dL Hct (35.3-44.9) % MCV (83.0-100.0) fL MCH (28.0-33.3) pg MCHC (31.6-35.5) g/dL RDW (11.5-14.5) % Plt Count (140-400) K/mcL MPV (9.4-12.4) fL Immature Gran % (0-4) % Seg Neutrophils % % Lymphocytes % % Monocytes % % Eosinophils % % Basophils % % Neutrophils # (1.6-8.9) K/mcL Lymphocytes # (0.6-4.6) K/mcL Monocytes # (0.0-1.3) K/mcL Eosinophils # (0.0-0.6) K/mcL Basophils # (0.0-0.2) K/mcL VBG pH (7.32-7.42) pH Units VBG pCO2 (41-51) mmHg VBG pO2 (25-50) mmHg VBG HCO3 (21-27) mEq/L Sodium (136-145) mEq/L Potassium (3.5-5.1) mEq/L Chloride (98-107) mEq/L Carbon Dioxide (23-29) mEq/L BUN (6-20) mg/dL Creatinine (0.60-1.20) mg/dL Est GFR ( Amer) (> 60) Est GFR (Non-Af Amer) (> 60) BUN/Creatinine Ratio (6-26) Glucose (70-105) mg/dL POC Glucose 425 H* (70-99) mg/dL Calculated Osmolality (280-300) Calcium (8.6-10.3) mg/dL Total Bilirubin (0.3-1.0) mg/dL Direct Bilirubin (0.0-0.2) mg/dL Indirect Bilirubin (0.0-1.2) mg/dL AST (13-39) Units/L ALT (7-52) Units/L Alkaline Phosphatase (34-104) Units/L Serum Total Protein (6.4-8.9) g/dL Albumin (3.5-5.7) g/dL Globulin (2.4-3.5) g/dL Albumin/Globulin Ratio (1.1-2.2) Lipase (11-82) Units/L Beta-Hydroxybutyric Acd (0.02-0.27) mmol/L Urine Color Yellow (Yellow) Urine Clarity Clear (Clear) Urine pH 6.0 (5.0-8.0) pH Units Ur Specific [place] 1.025 (1.010-1.025) Urine Protein Negative (Neg-Trace) mg/dL Urine Glucose (UA) >=1000 H (Normal) mg/dL Urine Ketones 80 H (Negative) mg/dL Urine Blood Trace H (Negative) Urine Nitrite Negative (Negative) Urine Bilirubin Negative (Negative) Urine Urobilinogen Normal (Normal) mg/dL Ur Leukocyte Esterase Negative (Negative) Urine Microscopic RBC 0-3 (0-3) per hpf Urine Microscopic WBC 5-15 H (0-3) per hpf Ur Squamous Epith Cells Many H (None-Few) per lpf Urine Bacteria None Seen (None-Few) per hpf Hyaline Casts None Seen (None-Few) per lpf Urine Test Negative (Negative) 07/16/19 07/16/19 07/16/19 Range/Units 21:30 21:49 21:49 WBC 25.8 H D (4.3-11.1) K/mcL RBC 3.95 (3.82-4.97) M/mcL Hgb 11.8 (11.5-15.4) g/dL Hct 35.7 (35.3-44.9) % MCV 90.4 (83.0-100.0) fL MCH 29.9 (28.0-33.3) pg MCHC 33.1 (31.6-35.5) g/dL RDW 14.4 (11.5-14.5) % Plt Count 544 H (140-400) K/mcL MPV 9.3 L (9.4-12.4) fL Immature Gran % 0.8 (0-4) % Seg Neutrophils % 91.4 % Lymphocytes % 3.5 % Monocytes % 4.1 % Eosinophils % 0.0 % Basophils % 0.2 % Neutrophils # 23.6 H (1.6-8.9) K/mcL Lymphocytes # 0.9 (0.6-4.6) K/mcL Monocytes # 1.1 (0.0-1.3) K/mcL Eosinophils # 0.0 (0.0-0.6) K/mcL Basophils # 0.1 (0.0-0.2) K/mcL VBG pH (7.32-7.42) pH Units VBG pCO2 (41-51) mmHg VBG pO2 (25-50) mmHg VBG HCO3 (21-27) mEq/L Sodium 129 L (136-145) mEq/L Potassium 4.2 (3.5-5.1) mEq/L Chloride 92 L (98-107) mEq/L Carbon Dioxide 18 L (23-29) mEq/L BUN 15 (6-20) mg/dL Creatinine 0.93 (0.60-1.20) mg/dL Est GFR ( Amer) > 60 (> 60) Est GFR (Non-Af Amer) > 60 (> 60) BUN/Creatinine Ratio 16 (6-26) Glucose 450 H (70-105) mg/dL POC Glucose 444 H* (70-99) mg/dL Calculated Osmolality 288 (280-300) Calcium 9.3 (8.6-10.3) mg/dL Total Bilirubin 0.4 (0.3-1.0) mg/dL Direct Bilirubin 0.1 (0.0-0.2) mg/dL Indirect Bilirubin 0.3 (0.0-1.2) mg/dL AST 13 (13-39) Units/L ALT 28 (7-52) Units/L Alkaline Phosphatase 136 H (34-104) Units/L Serum Total Protein 7.7 (6.4-8.9) g/dL Albumin 3.6 (3.5-5.7) g/dL Globulin 4.1 H (2.4-3.5) g/dL Albumin/Globulin Ratio 0.9 L (1.1-2.2) Lipase 10 L (11-82) Units/L Beta-Hydroxybutyric Acd (0.02-0.27) mmol/L Urine Color (Yellow) Urine Clarity (Clear) Urine pH (5.0-8.0) pH Units Ur Specific [place] (1.010-1.025) Urine Protein (Neg-Trace) mg/dL Urine Glucose (UA) (Normal) mg/dL Urine Ketones (Negative) mg/dL Urine Blood (Negative) Urine Nitrite (Negative) Urine Bilirubin (Negative) Urine Urobilinogen (Normal) mg/dL Ur Leukocyte Esterase (Negative) Urine Microscopic RBC (0-3) per hpf Urine Microscopic WBC (0-3) per hpf Ur Squamous Epith Cells (None-Few) per lpf Urine Bacteria (None-Few) per hpf Hyaline Casts (None-Few) per lpf Urine Test (Negative) 07/16/19 07/16/19 Range/Units 21:49 21:59 WBC (4.3-11.1) K/mcL RBC (3.82-4.97) M/mcL Hgb (11.5-15.4) g/dL Hct (35.3-44.9) % MCV (83.0-100.0) fL MCH (28.0-33.3) pg MCHC (31.6-35.5) g/dL RDW (11.5-14.5) % Plt Count (140-400) K/mcL MPV (9.4-12.4) fL Immature Gran % (0-4) % Seg Neutrophils % % Lymphocytes % % Monocytes % % Eosinophils % % Basophils % % Neutrophils # (1.6-8.9) K/mcL Lymphocytes # (0.6-4.6) K/mcL Monocytes # (0.0-1.3) K/mcL Eosinophils # (0.0-0.6) K/mcL Basophils # (0.0-0.2) K/mcL VBG pH 7.48 H (7.32-7.42) pH Units VBG pCO2 26 L (41-51) mmHg VBG pO2 136 H (25-50) mmHg VBG HCO3 19 L (21-27) mEq/L Sodium (136-145) mEq/L Potassium (3.5-5.1) mEq/L Chloride (98-107) mEq/L Carbon Dioxide (23-29) mEq/L BUN (6-20) mg/dL Creatinine (0.60-1.20) mg/dL Est GFR ( Amer) (> 60) Est GFR (Non-Af Amer) (> 60) BUN/Creatinine Ratio (6-26) Glucose (70-105) mg/dL POC Glucose (70-99) mg/dL Calculated Osmolality (280-300) Calcium (8.6-10.3) mg/dL Total Bilirubin (0.3-1.0) mg/dL Direct Bilirubin (0.0-0.2) mg/dL Indirect Bilirubin (0.0-1.2) mg/dL AST (13-39) Units/L ALT (7-52) Units/L Alkaline Phosphatase (34-104) Units/L Serum Total Protein (6.4-8.9) g/dL Albumin (3.5-5.7) g/dL Globulin (2.4-3.5) g/dL Albumin/Globulin Ratio (1.1-2.2) Lipase (11-82) Units/L Beta-Hydroxybutyric Acd > 2.00 H (0.02-0.27) mmol/L Urine Color (Yellow) Urine Clarity (Clear) Urine pH (5.0-8.0) pH Units Ur Specific [place] (1.010-1.025) Urine Protein (Neg-Trace) mg/dL Urine Glucose (UA) (Normal) mg/dL Urine Ketones (Negative) mg/dL Urine Blood (Negative) Urine Nitrite (Negative) Urine Bilirubin (Negative) Urine Urobilinogen (Normal) mg/dL Ur Leukocyte Esterase (Negative) Urine Microscopic RBC (0-3) per hpf Urine Microscopic WBC (0-3) per hpf Ur Squamous Epith Cells (None-Few) per lpf Urine Bacteria (None-Few) per hpf Hyaline Casts (None-Few) per lpf Urine Test (Negative) Attestation Statement - Attestation Attestation: I have seen this patient with the resident physician, I have personally evaluated this patient. I had reviewed the chart and document dictation by the resident physician and aM in agreement with the information documented by the resident physician. Please see documentation by the resident physician for complete chart including past medical history, family medical history, review of systems, current history and physical and laboratory and imaging studies. I was present for all procedures, provided direct supervision for all procedures, was present for the entirety of all procedures and provided direct guidance during the procedures. Please see documentation by the resident physician for any procedures performed. I have reviewed all interpretations of EKGs, and reviewed all EKGs performed on patient's as well. I have also reviewed reports of imaging as provided by maria l zapata. Patient presented emergency department, with current resolution of her symptoms. The patient states she was recently admitted to the hospital, she had reviewed admitted and seen several times in the last 1 month, she was having recurrent urinary tract infections, what had improvement of her back pain nausea vomiting while on this, but then came in with worsening symptoms she underwent a CT scan which showed intrarenal abscesses bilaterally. She was admitted to the hospital for 4 days, on IV antibiotics and discharged home 3 days ago on oral antibiotics, she is currently on Cipro. She currently has pain medication and nausea medication to take at home. She states that tonight her back pain was worsening, she does not usually take her pain medication other than before bed so she did not take that she started having nausea and vomiting and threw up multiple time she took her nausea medication but without resolution of her symptoms, she states that while she was in the waiting room her pain went away and she is no longer feeling nauseated and she feels much better. She has had no reported fevers but the family was concerned that she did feel warm. She has an insulin pump in place, but has not checked her blood sugar tonight because she typically has a continuous monitor but she had this removed temporarily this evening and did not reattach it. She does not exactly what her blood sugar is. The patient currently states that she feels fine she has no headache no neck pain no chest pain or shortness of breath or dizziness or weakness no back pain or urinary changes and feels much better after having thrown up multiple times in the car and had resolution of her symptoms in the waiting room. On physical examination she is alert oriented 3 nontoxic in appearance and in no acute distress cranial nerves are intact oropharynx is normal. Lungs are clear heart is regular, on my examination there is no tachycardia with a heart rate of 90, abdomen is soft and nontender, no CVA tenderness skin is warm dry without rash or petechiae she has no meningeal sign and no neurologic findings no evidence of DVT. A fingerstick was checked and was in the 400s 2, 425 followed by 443, secondary to her history of diabetes, and recent significant abnormalities, basic laboratory studies were ordered especially with a blood sugar over 400 she was given a liter of IV fluid she has an insulin pump in place, and she requested to use her insulin pump to adjust for her hyperglycemia, she adjusted her insulin pump at my permission, and was given fluids. Basic laboratory studies were ordered, however the patient is currently asymptomatic hemodynamically within a cceptable limits, and as long as laboratory studies are reassuring we will consider discharge home at that time. Laboratory studies showed ketones greater than 2, findings consistent with UTI, white blood cell count significantly increased at 25,900 Renal panel showed mild suggestion of DKA slightly low bicarbonate 18, blood sugar of 425, mild hyponatremia, likely related to hyperglycemia. VBG within acceptable limits. Repeat CT scan with IV contrast shows progressive worsening of pyelonephritis now with evidence to suggest a more discrete appearance of a developing abscess of the left kidney. She was given IV cefepime, and IV fluids, and we will continue to monitor blood sugars. She has her insulin pump in place currently, may require IV insulin drip and shutting off her pump will continue to monitor this. She will be admitted to the hospital for further management. Total critical care time as provided by myself excluding any procedures performed was 30 minutes
[2019-07-16 21:49] LABS: Bilirubin,Urine Negative (Negative); Blood,Urine Trace (Negative); Clarity,Urine Clear (Clear); Color,Urine Yellow (Yellow); Glucose,Urine (UA) >=1000 mg/dL (Normal); Ketones,Urine 80 mg/dL (Negative); Leukocyte Esterase,Urine Negative (Negative); Nitrite,Urine Negative (Negative); Protein,Urine Negative (Neg-Trace); Specific Gravity,Urine 1.025 (1.010-1.025); Urobilinogen,Urine Normal (Normal)
[2019-07-16 21:51] LABS: Bacteria,Urine None Seen per hpf (None-Few); Hyaline Casts,Urine None Seen per lpf (None-Few); RBC,Urine 0-3 per hpf (0-3); Squamous Epithelial Cell,Urine Many per lpf (None-Few)
[2019-07-16 22:00] LABS: Basophils % 0.2 %; Hemoglobin 11.8 g/dL (11.5-15.4); Immature Granulocytes % 0.8 % (0-4); Mean Corpuscular Hemoglobin 29.9 pg (28.0-33.3); Monocytes % 4.1 %; Red Blood Count 3.95 M/mcL (3.82-4.97)
[2019-07-16 22:01] LABS: Basophils # 0.1 K/mcL (0.0-0.2); Hematocrit 35.7 % (35.3-44.9); Lymphocytes # 0.9 K/mcL (0.6-4.6); Lymphocytes % 3.5 %; Mean Corpuscular HGB Conc 33.1 g/dL (31.6-35.5); Mean Corpuscular Volume 90.4 fL (83.0-100.0); Mean Platelet Volume 9.3 fL (9.4-12.4); Monocytes # 1.1 K/mcL (0.0-1.3); Platelet Count 544 K/mcL (140-400); Red Cell Distribution Width 14.4 % (11.5-14.5); Segmented Neutrophils % 91.4 %; White Blood Count 25.8 K/mcL (4.3-11.1)
[2019-07-16 22:02] LABS: Neutrophils # 23.6 K/mcL (1.6-8.9)
[2019-07-16 22:02] LABS: VBG HCO3 19 mEq/L (21-27); VBG PCO2 26 mmHg (41-51); VBG PH 7.48 pH Units (7.32-7.42); VBG PO2 136 mmHg (25-50)
[2019-07-16 22:21] LABS: Alanine Aminotransferase 28 Units/L (7-52); Albumin 3.6 g/dL (3.5-5.7); Albumin/Globulin Ratio 0.9 (1.1-2.2); Alkaline Phosphatase 136 Units/L (34-104); Aspartate Amino Transferase 13 Units/L (13-39); BUN/Creatinine Ratio 16 (6-26); Bilirubin,Direct 0.1 mg/dL (0.0-0.2); Bilirubin,Indirect 0.3 mg/dL (0.0-1.2); Bilirubin,Total 0.4 mg/dL (0.3-1.0); Blood Urea Nitrogen 15 mg/dL (6-20); Calcium 9.3 mg/dL (8.6-10.3); Carbon Dioxide 18 mEq/L (23-29); Chloride 92 mEq/L (98-107); Globulin 4.1 g/dL (2.4-3.5); Glucose 450 mg/dL (70-105); Lipase 10 Units/L (11-82); Osmolality,Calculated 288 (280-300); Potassium 4.2 mEq/L (3.5-5.1); Sodium 129 mEq/L (136-145); Total Protein 7.7 g/dL (6.4-8.9); eGFR For African Americans > 60 (> 60); eGFR For Non-African Americans > 60 (> 60)
[2019-07-16] MEDS ORDERED: Isovue-370 500 ML BOTTLE IVP ONE (22:46)
[2019-07-17] MEDS ORDERED: Cefepime HCl 1,000 MG in 0.9 % Sodium Chloride Mini Bag 100 ML IVPB ONE (00:22)
[2019-07-17] MEDS ORDERED: 0.9 % Sodium Chloride 1,000 ML IVC ONE (00:34)
[2019-07-17] MEDS ORDERED: *HR* Dextrose 50 % in Water (Syg) 50 ML SYRINGE IVP PRN ×2 (03:04→05:02)
[2019-07-17] MEDS: 0.9 % Sodium Chloride w KCl 20 MEQ/1,000 ML MLS IVC SCH ×4 (04:01→19:28)
[2019-07-17] MEDS ORDERED: Ondansetron 4 MG/2 ML VIAL IVP PRN (04:08)
[2019-07-17 04:10] LABS: BUN/Creatinine Ratio 16 (6-26); Blood Urea Nitrogen 10 mg/dL (6-20); Calcium 8.5 mg/dL (8.6-10.3); Carbon Dioxide 25 mEq/L (23-29); Chloride 102 mEq/L (98-107); Glucose 137 mg/dL (70-105); Osmolality,Calculated 283 (280-300); Potassium 3.7 mEq/L (3.5-5.1); Sodium 136 mEq/L (136-145); eGFR For African Americans > 60 (> 60); eGFR For Non-African Americans > 60 (> 60)
[2019-07-17] MEDS ORDERED: Dextrose Gel 15 GM/37.5 ML TUBE PO PRN ×2 (05:02)
[2019-07-17] MEDS ORDERED: D5% in Water 1,000 ML IVC PRN (05:02)
[2019-07-17 05:10] LABS: Magnesium 1.9 mg/dL (1.6-2.6); Phosphorous 3.6 mg/dL (2.7-4.5)
[2019-07-17] MEDS: 0.9 % Sodium Chloride 1,000 ML IVC ONE ×2 (05:20→06:54)
[2019-07-17] MEDS ORDERED: *HR* OxyCODONE Immed Rel 5 MG TABLET PO PRN (05:34)
[2019-07-17] MEDS ORDERED: Naloxone 0.4 MG/ML INJ IVP PRN (05:34)
[2019-07-17] MEDS ORDERED: Acetaminophen 325 MG TABLET PO PRN (05:34)
[2019-07-17] MEDS ORDERED: traMADol 50 MG TABLET PO PRN (05:34)
--- NOTE | 2019-07-17 05:46 | Internal Med History&Physical ---
Date of Encounter: 07/17/19 Time of Encounter: 05:44 Internal Medicine - H&P: HPI Chief complaint: back pain Admitted From: Home Plans for Post Hospital Care: Home History of present illness: Edith Benedict is a 19 year old woman with mood disorder and brittle type 1 diabetes who uses an insulin pump and was admitted here 1 week ago in a septic state, found to have pyelonephritis and newly forming renal abscesses bilaterally. She was started on parenteral antibiotics and evaluated by urology. Given her clinical improvement and defervescence, she was discharged to complete a 2 week course of oral antibiotics. She says she has been taking her antibiotics as prescribed but yesterday developed nausea and vomiting and noted that she was hyperglycemic. She also describes always feeling cold and having chills but no fever per se. She continues to have lower back pain and felt unwell. She came to the ER given her symptoms and poor glycemic control. In the ER her vitals were within normal limits but lab work revealed a leukocyte count of 25.8 which is higher than the value she had upon discharge. She was also in a state of mild DKA which corrected with fluids and her continued insulin infusion. CT abdomen was done showing progressive changes of pyelonephritis with more conspicuous fluid attenuation in both kidneys compatible with abscesses. She was given a dose of cefepime and is admitted for ongoing care. Vitals: Reviewed General: Pleasant appearing young woman who appears younger than her stated age lying in bed in NAD Skin: Warm and dry. HEENT: Dry mucous membranes. No conjunctivae pallor. Neck: No lymphadenopathy. No JVD. No carotid bruits. No palpable thyroid. Chest: Normal thoracic expansion. Normal breath sounds. Clear to auscultation. Heart: Normal S1 & S2; rhythmic. No rubs or murmurs. Abdomen: Non-distended, soft and non-tender to palpation. Lumbar pain elicited on palpation, L>R. Extremities: No clubbing, cyanosis or edema. No calf tenderness. Normal distal pulses. Neurological: Awake, alert and oriented to person, place and time. No focal deficits. Psych: Affect appropriate. Assessment/Plan 1. DKA: Mild. The patient had notable ketonemia with an elevated anion gap and ketonuria in the setting of a hyperglycemic state. The patients pH was see mingly alkalotic which appears to be a respiratory compensation noting the low PCO2. The findings have now corrected with fluid resuscitation and her insulin. Will continue to monitor glucose q4hrs. The patient does not want to turn off her insulin pump despite being hospitalized so we can ensure our own monitoring and therapy. She remained adamant about this so we will simply check her glycemic values often and she will report her infusion rates. 2. Complicated urinary tract infection: The patient now has more coalescence of the collections seen on CT previously and continues to have systemic symptoms and worsening leukocytosis despite her being on oral antibiotics. It does not appear to be a case of microbial resistance based on the culture results therefore cefepime is not needed. Will place her on ceftriaxone. It appears that source control may be the more important factor and consideration may need to be given towards a drainage procedure if deemed feasible. Urology and IR services have been consulted for their input. 3. Tobacco use: 5 minutes were spent counseling and educating the patient on this habit. administrative services director and resources were made available. 4. DVT prophylaxis: Antiembolic stockings. Past Med Surg Social Fam HX - Past Medical History Medical history: asthma, diabetes Additional medical history: Type I Diabetes Psychiatric history: anxiety, ADHD, bipolar, depression, PTSD - Past Surgical History Surgical History: non-contributory, other Additional surgical history: tonsillectomy - Social History Smoking Status: Current every day smoker Smokeless Tobacco Status: No Alcohol use: none Drug use: none - Family History Father Living Status: Still Living Mother Living Status: Still Living Internal Medicine - H&P: Meds Subcutaneous Insulin Pump [T:Slim] 1 each MC AD 07/07/19 [History] Ciprofloxacin [Cipro] 500 mg PO BID 7 Days #14 tablet 07/12/19 [Rx] Ondansetron [Zofran ODT] 8 mg SL Q8H PRN 4 Days #12 tab 07/12/19 [Rx] OxyCODONE/APAP 5/325 [Percocet 5/325 MG] 1 each PO Q6HR PRN 5 Days #20 tablet 07/12/19 [Rx] Allergy/AdvReac Type Severity Reaction Status Date / Time insulin glargine AdvReac Rash Verified 07/07/19 13:58 [From Basaglar KwikPen U-100 Insulin] sulfamethoxazole AdvReac See Verified 07/07/19 13:58 [From Bactrim] Comments trimethoprim [From Bactrim] AdvReac See Verified 07/07/19 13:58 Comments All Systems PM: A 10-system review of systems was performed and is negative for pertinent findings except as documented above in the HPI. - Constitutional Vitals: Temp Pulse Resp BP Pulse Ox 98.1 F 77 17 99/62 99 07/17/19 04:39 07/17/19 04:39 07/17/19 04:39 07/17/19 04:39 07/17/19 04:39 Exam: . Internal Med - H&P Results - Labs CBC & Chem 7: 07/16/19 21:49 07/17/19 03:35 Labs: Short CBC 07/16/19 Range/Units 21:49 WBC 25.8 H D (4.3-11.1) K/mcL Hgb 11.8 (11.5-15.4) g/dL Hct 35.7 (35.3-44.9) % Plt Count 544 H (140-400) K/mcL Neutrophils # 23.6 H (1.6-8.9) K/mcL BMP 07/16/19 07/17/19 21:49 03:35 Sodium 129 L 136 Potassium 4.2 3.7 Chloride 92 L 102 Carbon Dioxide 18 L 25 BUN 15 10 Creatinine 0.93 0.62 Glucose 450 H 137 H Calcium 9.3 8.5 L Liver Function 07/16/19 Range/Units 21:49 Total Bilirubin 0.4 (0.3-1.0) mg/dL Direct Bilirubin 0.1 (0.0-0.2) mg/dL AST 13 (13-39) Units/L ALT 28 (7-52) Units/L Alkaline Phosphatase 136 H (34-104) Units/L Albumin 3.6 (3.5-5.7) g/dL Urine 07/16/19 Range/Units 21:16 Urine Color Yellow (Yellow) Urine Clarity Clear (Clear) Urine pH 6.0 (5.0-8.0) pH Units Ur Specific [place] 1.025 (1.010-1.025) Urine Protein Negative (Neg-Trace) mg/dL Urine Glucose (UA) >=1000 H (Normal) mg/dL - ABG Interpretation ABG results: 07/16/19 21:59 VBG pH 7.48 H VBG pCO2 26 L VBG pO2 136 H VBG HCO3 19 L - Impressions ITS Impressions Abdomen/Pelvis CT 07/16/19 22:46 IMPRESSION: Progressing changes of pyelonephritis with more conspicuous fluid attenuation in both kidneys compatible with abscesses, a junior sales representative abscess in the interpolar left kidney measuring 2.3 x 1.7 cm. D/ / Nathan Mendez / Nathan Mendez Interpreting Provider: Nathan Mendez - Time Spent With Patient Total time spent is greater than 50% in coordination of care (as documented) at patient's floor/unit and/or counseling patient:
[2019-07-17] MEDS: cefTRIAXone 2,000 MG in Water for inj. (sterile) 20 ML IVPB SCH (10:23)
[2019-07-17] MEDS: D5% in Water 1,000 ML IVC SCH (10:24)
--- NOTE | 2019-07-17 10:43 | Urology - Consult Note ---
Date of Encounter: 07/17/19 Time of Encounter: 10:41 - Assessment and Plan (1) DKA (diabetic ketoacidoses) Current Visit: Yes Status: Acute Assessment and plan: Blood sugar markedly improved since arrival to the hospital. Continue tight blood sugar control. Qualifiers: Diabetes mellitus type: other specified (including KENN) Diabetes mellitus complication detail: without coma Qualified Code(s): E13.10 - Other specified diabetes mellitus with ketoacidosis without coma (2) Leukocytosis Current Visit: Yes Status: Acute Assessment and plan: Likely related to uncontrolled UTI. Question whether the patient was taking her antibiotics appropriately at home. Patient now back on Rocephin. Qualifiers: Leukocytosis type: unspecified Qualified Code(s): D72.829 - Elevated white blood cell count, unspecified (3) Pyelonephritis Current Visit: Yes Status: Acute Assessment and plan: Patient with significant bilateral pyelonephritis. Continue with IV antibiotics. (4) Renal abscess Current Visit: Yes Status: Acute Assessment and plan: Patient was concern for development of left renal abscess. I discussed this with interventional radiology and they will be commenting. At this time they do not believe that drainage is feasible. Recommend to continue with IV antibiotics. No urological intervention at this time. We will continue to follow along closely. Urology CN:HPI Consult date: 07/17/19 Reason for consult Urology: Other (renal abscess) Requesting physician: Jeffery Spear History of present illness: Edith is a 19-year-old female type I diabetic who was admitted back to the hospital secondary to nausea and vomiting. Patient underwent CT scan which revealed possible development of left renal abscess with multiple areas of possible infection in both kidneys. Patient still be see count back up to 25,000. Patient states that her nausea and vomiting are improved but still present. Patient's blood sugar was also markedly elevated upon arrival to the hospital. She blamed this on changing her pump out. Patient became very emotional with our discussion of the reason for her being in the hospital. She states that she has done nothing but be in the hospital for the past 2 months. Patient with persistent back pain but she attributes this to long-term chronic low back pain. Pain is currently a 3 and a 10 sharp in nature with no obvious radiation. Past Med Surg Social Fam HX - Past Medical History Medical history: asthma, diabetes Additional medical history: Type I Diabetes Psychiatric history: anxiety, ADHD, bipolar, depression, PTSD - Past Surgical History Surgical History: non-contributory, other Additional surgical history: tonsillectomy - Social History Smoking Status: Current every day smoker Smokeless Tobacco Status: No Alcohol use: none Drug use: none - Family History Father Living Status: Still Living Mother Living Status: Still Living Medications and Allergies Subcutaneous Insulin Pump [T:Slim] 1 each MC AD 07/07/19 [History] Ciprofloxacin [Cipro] 500 mg PO BID 7 Days #14 tablet 07/12/19 [Rx] Ondansetron [Zofran ODT] 8 mg SL Q8H PRN 4 Days #12 tab 07/12/19 [Rx] OxyCODONE/APAP 5/325 [Percocet 5/325 MG] 1 each PO Q6HR PRN 5 Days #20 tablet 07/12/19 [Rx] Allergy/AdvReac Type Severity Reaction Status Date / Time insulin glargine AdvReac Rash Verified 07/17/19 10:07 [From Basaglar KwikPen U-100 Insulin] sulfamethoxazole AdvReac See Verified 07/17/19 10:07 [From Bactrim] Comments trimethoprim [From Bactrim] AdvReac See Verified 07/17/19 10:07 Comments Review of Systems - Constitutional no chills, no fever(s) - EENT Nose, mouth and throat: no dizziness - Cardiovascular no chest pain, no dyspnea, no edema - Respiratory no cough, no dyspnea - Gastrointestinal nausea, vomiting - Genitourinary Genitourinary: as per HPI - Musculoskeletal back pain - Integumentary no erythema - Neurological no sensory deficit, no syncope - Psychiatric no confusion, no depression - Hematologic/Lymphatic no lymphadenopathy - Allergic/Immunologic no wheezing Exam Initial Vital Signs Temp Pulse Resp BP Pulse Ox 98.7 F 122 20 101/67 97 07/16/19 19:46 07/16/19 19:46 07/16/19 19:46 07/16/19 19:46 07/16/19 19:46 General/Neuological: alert and oriented x 3 Eyes: normal pupils, non-icteric Neck: no lymphadenopathy noted, supple to touch Cardiovascular: RRR, no murmurs Respiratory: normal respiratory effort, clear bilaterally ABD: soft, nontender, no masses palpated, good bowel sounds Back: no pain on percussion bilaterally Skin: no rashes noted Musculoskeletal: normal gait, FROMx4 Urology Results - Labs 07/16/19 21:49 07/17/19 03:35 Abnormal lab results WBC 25.8 K/mcL (4.3-11.1) H D 07/16/19 21:49 Plt Count 544 K/mcL (140-400) H 07/16/19 21:49 MPV 9.3 fL (9.4-12.4) L 07/16/19 21:49 Neutrophils # 23.6 K/mcL (1.6-8.9) H 07/16/19 21:49 VBG pH 7.48 pH Units (7.32-7.42) H 07/16/19 21:59 VBG pCO2 26 mmHg (41-51) L 07/16/19 21:59 VBG pO2 136 mmHg (25-50) H 07/16/19 21:59 VBG HCO3 19 mEq/L (21-27) L 07/16/19 21:59 Sodium 129 mEq/L (136-145) L 07/16/19 21:49 Chloride 92 mEq/L (98-107) L 07/16/19 21:49 Carbon Dioxide 18 mEq/L (23-29) L 07/16/19 21:49 Glucose 137 mg/dL (70-105) H 07/17/19 03:35 POC Glucose 205 mg/dL (70-99) H 07/17/19 01:18 Calcium 8.5 mg/dL (8.6-10.3) L 07/17/19 03:35 Alkaline Phosphatase 136 Units/L (34-104) H 07/16/19 21:49 Globulin 4.1 g/dL (2.4-3.5) H 07/16/19 21:49 Albumin/Globulin Ratio 0.9 (1.1-2.2) L 07/16/19 21:49 Lipase 10 Units/L (11-82) L 07/16/19 21:49 Beta-Hydroxybutyric Acd > 2.00 mmol/L (0.02-0.27) H 07/16/19 21:49 Urine Glucose (UA) >=1000 mg/dL (Normal) H 07/16/19 21:16 Urine Ketones 80 mg/dL (Negative) H 07/16/19 21:16 Urine Blood Trace (Negative) H 07/16/19 21:16 Urine Microscopic WBC 5-15 per hpf (0-3) H 07/16/19 21:16 Ur Squamous Epith Cells Many per lpf (None-Few) H 07/16/19 21:16 Salicylates < 2.5 mg/dL (15.0-30.0) L 07/17/19 01:45 Diabetes panel 07/16/19 07/17/19 Range/Units 21:49 03:35 Sodium 129 L 136 (136-145) mEq/L Potassium 4.2 3.7 (3.5-5.1) mEq/L Chloride 92 L 102 (98-107) mEq/L Carbon Dioxide 18 L 25 (23-29) mEq/L BUN 15 10 (6-20) mg/dL Creatinine 0.93 0.62 (0.60-1.20) mg/dL Glucose 450 H 137 H (70-105) mg/dL Calcium 9.3 8.5 L (8.6-10.3) mg/dL AST 13 (13-39) Units/L ALT 28 (7-52) Units/L Alkaline Phosphatase 136 H (34-104) Units/L Albumin 3.6 (3.5-5.7) g/dL Calcium panel 07/16/19 07/17/19 Range/Units 21:49 03:35 Calcium 9.3 8.5 L (8.6-10.3) mg/dL Phosphorus 3.6 (2.7-4.5) mg/dL Albumin 3.6 (3.5-5.7) g/dL Pituitary panel 07/16/19 07/17/19 Range/Units 21:49 03:35 Sodium 129 L 136 (136-145) mEq/L Potassium 4.2 3.7 (3.5-5.1) mEq/L Chloride 92 L 102 (98-107) mEq/L Carbon Dioxide 18 L 25 (23-29) mEq/L BUN 15 10 (6-20) mg/dL Creatinine 0.93 0.62 (0.60-1.20) mg/dL Glucose 450 H 137 H (70-105) mg/dL Calcium 9.3 8.5 L (8.6-10.3) mg/dL Adrenal panel 07/16/19 07/17/19 Range/Units 21:49 03:35 Sodium 129 L 136 (136-145) mEq/L Potassium 4.2 3.7 (3.5-5.1) mEq/L Chloride 92 L 102 (98-107) mEq/L Carbon Dioxide 18 L 25 (23-29) mEq/L BUN 15 10 (6-20) mg/dL Creatinine 0.93 0.62 (0.60-1.20) mg/dL Glucose 450 H 137 H (70-105) mg/dL Calcium 9.3 8.5 L (8.6-10.3) mg/dL Total Bilirubin 0.4 (0.3-1.0) mg/dL AST 13 (13-39) Units/L ALT 28 (7-52) Units/L Alkaline Phosphatase 136 H (34-104) Units/L Albumin 3.6 (3.5-5.7) g/dL All other labs normal. - Imaging CT scan - abdomen: image reviewed CT scan - pelvis: image reviewed (I personally reviewed the images and discussed the images with Dr. Armstrong from interventional radiology.) Consult Discharge Plan - Plan Referrals: Eliseo Campbell DO [Primary Care Provider] -
--- NOTE | 2019-07-17 11:40 | IR Consult Note ---
Date of Encounter: 07/17/19 Time of Encounter: 11:34 Assessment and Plan (1) Pyelonephritis Current Visit: Yes Status: Acute I recommend treatment with culture specific IV antibiotics. Not amenable to catheter drainage at this time. Consult date: 07/17/19 Physicians: Víctor Reed History of present illness: Pt with h/o DM and bilateral pyelonephritis with possible microabscesses and phlegmon on CT A/P. Discussed case with Dr Cervantes today after review of images. No significant drainable fluid collection present. Attempting to place catheter may make patient septic and not likely to benefit patient as there is not a well defined large abscess collection. I recommend treatement with culture specific IV antibiotics. Consult Comment: Thank you for the consult. Call [facility] with questions or concerns. Past Med Surg Social Fam HX - Past Medical History Medical history: asthma, diabetes Additional medical history: Type I Diabetes Psychiatric history: anxiety, ADHD, bipolar, depression, PTSD - Past Surgical History Surgical History: non-contributory, other Additional surgical history: tonsillectomy - Social History Smoking Status: Current every day smoker Smokeless Tobacco Status: No Alcohol use: none Drug use: none - Family History Father Living Status: Still Living Mother Living Status: Still Living Medications and Allergies Subcutaneous Insulin Pump [T:Slim] 1 each MC AD 07/07/19 [History] Ciprofloxacin [Cipro] 500 mg PO BID 7 Days #14 tablet 07/12/19 [Rx] Ondansetron [Zofran ODT] 8 mg SL Q8H PRN 4 Days #12 tab 07/12/19 [Rx] OxyCODONE/APAP 5/325 [Percocet 5/325 MG] 1 each PO Q6HR PRN 5 Days #20 tablet 07/12/19 [Rx] Allergy/AdvReac Type Severity Reaction Status Date / Time insulin glargine AdvReac Rash Verified 07/17/19 10:07 [From Basaglar KwikPen U-100 Insulin] sulfamethoxazole AdvReac See Verified 07/17/19 10:07 [From Bactrim] Comments trimethoprim [From Bactrim] AdvReac See Verified 07/17/19 10:07 Comments Results Reviewed 07/16/19 21:49 07/17/19 03:35 Lab Results 09/12/0407/17/19 07/17/19 03:35 03:35 02:26 WBC RBC Hgb Hct MCV MCH MCHC RDW Plt Count MPV Neutrophils # Lymphocytes # Monocytes # Eosinophils # Basophils # Sodium 136 Potassium 3.7 Chloride 102 Carbon Dioxide 25 BUN 10 Creatinine 0.62 Est GFR ( Amer) > 60 Est GFR (Non-Af Amer) > 60 BUN/Creatinine Ratio 16 Glucose 137 H Lactic Acid 0.8 0.7 Calcium 8.5 L Phosphorus 3.6 Magnesium 1.9 07/16/19 07/16/19 21:49 21:49 WBC 25.8 H D RBC 3.95 Hgb 11.8 Hct 35.7 MCV 90.4 MCH 29.9 MCHC 33.1 RDW 14.4 Plt Count 544 H MPV 9.3 L Neutrophils # 23.6 H Lymphocytes # 0.9 Monocytes # 1.1 Eosinophils # 0.0 Basophils # 0.1 Sodium 129 L Potassium 4.2 Chloride 92 L Carbon Dioxide 18 L BUN 15 Creatinine 0.93 Est GFR ( Amer) > 60 Est GFR (Non-Af Amer) > 60 BUN/Creatinine Ratio 16 Glucose 450 H Lactic Acid Calcium 9.3 Phosphorus Magnesium Consult Discharge Plan - Plan Referrals: Eliseo Campbell DO [Primary Care Provider] -
[2019-07-17 16:24] LABS: BUN/Creatinine Ratio 14 (6-26); Blood Urea Nitrogen 7 mg/dL (6-20); Calcium 8.6 mg/dL (8.6-10.3); Carbon Dioxide 23 mEq/L (23-29); Chloride 100 mEq/L (98-107); Glucose 226 mg/dL (70-105); Osmolality,Calculated 279 (280-300); Potassium 3.4 mEq/L (3.5-5.1); Sodium 132 mEq/L (136-145); eGFR For African Americans > 60 (> 60); eGFR For Non-African Americans > 60 (> 60)
[2019-07-17 16:30] LABS: Estimated Average Glucose 206 mg/dl
--- NOTE | 2019-07-17 19:05 | Internal Med Progress Note ---
Hospitalist Progress Note - Encounter Date of Encounter: 07/17/19 Time of Encounter: 09:55 - Subjective Interval History: Ms. Benedict was upset this am when discussions regarding her diabetes control and management was brought up given that she has a insulin pump and typically would like to have turned off so we can manage her DKA via insulin injection. She claims she will not receive any insulin injection and that she would not come off the pump and threatened to leave AMA. This prompted a goals of care/treatment plan discussion with the patient she was tearful, initially uncooperative claiming she has been diabetic since age 4 and that she can manage her insulin she claimed her insulin pump cath fell off and that was why she presented with DKA, she stated that she became hypoglycemic because she was told to administered 21 units of insulin earlier at the ED. Of note blood glucose was 64 and an 62 which prompted nurse to provide patient with orange juice. After much deliberate attempts to help us understand the dangers of continued insulin pump we settled for D5 W infusion 50ml why she attempts to address glycemic control with the pump for 24 hours since she refused to allow us administer insulin as per our protocol and was threatening to leave AMA given that she has severe pyelonephritis with abscess GEN: Denies fever, chills or malaise HEENT: Denies headache blurriness, or dysphagia RESP: Denies SOB or cough CV: Denies chest pain or palpitations GI: Denies Nausea, vomiting, diarrhea or constipation Reviewed current in hospital medications with modifications see orders Reviewed Routine labs - Exam Vitals: Temp Pulse Resp BP Pulse Ox 98.5 F 96 18 121/75 99 07/17/19 15:45 07/17/19 18:12 07/17/19 15:45 07/17/19 15:45 07/17/19 15:45 Exam: GEN: Mildly distressed initially irritated transition to tearful, A&O x 3, uncooperative initially SKIN: [place] warm acyanotic not jaundice HEART: RRR, no murmurs LUNGS: CTA no wheeze or crackles, overall non labored ABDOMEN; Soft, non tender or distended, BS x 4 normactive EXT: No LE edema, Pedal pulses 1+, radial pulses 2+ PSYCH: Mood irritable affect labile - Assessment and Plan (1) Sepsis Current Visit: Yes Status: Acute Assessment and Plan: Patient appears to have met sepsis criteria on presentation, but clinically does not appear to be acutely ill, blood cultures pending she is on ceftriaxone for her pyelonephritis with abscess would add vancomycin (2) DKA (diabetic ketoacidoses) Current Visit: Yes Status: Acute Assessment and Plan: Patient attributes her DKA due to malfunctioning of her insulin pump she claims the catheter fell out, multiple attempts to get the patient to understand that she needs upon of the pump so we can manage DKA appropriately was futile. She tried them to leave AMA if we try to administer any subcutaneous insulin, patient has an abscess of bilateral kidneys as such her living AMA is puts her at risk for severe sepsis. Negotiated with the patient that will watch her try to address her diabetes with the insulin pump for now although not ideal. Since her blood sugar dropped to 62 this morning D5w as 50 mL's /hr will be running, of note her anion gap closed (3) Hypokalemia Current Visit: Yes Status: Acute Assessment and Plan: In the setting of insulin therapy and DKA we will supplement orally (4) Pyelonephritis Current Visit: Yes Status: Acute Assessment and Plan: She was seen by urology and IR no surgical intervention continue antibiotics, given the extended course of his infection with worsening leukocytosis would add vancomycin in addition to ceftriaxone (5) Renal abscess Current Visit: Yes Status: Acute Assessment and Plan: Interventional radiology no surgical intervention will continue antibiotics as aforementioned (6) Type 1 diabetes mellitus Current Visit: Yes Status: Acute Assessment and Plan: Movement A1c is 8.8, patient refuses to turn off her insulin pump so we can manage her appropriately with insulin per protocol, after a long deliberations of which she treated to leave AMA was settled for the patient to continue to use a pump will typically correlate and manage closely D5W ordered at 50 ML's since patient became hypoglycemic earlier this month while on the pump but refused to understand the dangers of possible pump malfunction she appears to have good understanding and comprehension for discussion suspect underlying chronic illness induced depression and anxiety from being diabetic since age 4 she stated she would not allow us to administer an insulin subcutaneous (7) Hyponatremia Current Visit: Yes Status: Resolved Assessment and Plan: More likely pseudohyponatremia given her elevated blood glucose corrected sodium is normal DVT Prophylaxis: Placed on Lovenox subcutaneous doubt patient we are agreeable to heparin subcutaneous 3 times a day - Time Spent with Patient Total time spent is greater than 50% in coordination of care (as documented) at patient's floor/unit and/or counseling patient: Internal Medicine: Result - Labs CBC & Chem 7: 07/16/19 21:49 07/17/19 15:49 Labs: Short CBC 07/16/19 Range/Units 21:49 WBC 25.8 H D (4.3-11.1) K/mcL Hgb 11.8 (11.5-15.4) g/dL Hct 35.7 (35.3-44.9) % Plt Count 544 H (140-400) K/mcL Neutrophils # 23.6 H (1.6-8.9) K/mcL BMP 07/16/19 07/17/19 07/17/19 21:49 03:35 15:49 Sodium 129 L 136 132 L Potassium 4.2 3.7 3.4 L Chloride 92 L 102 100 Carbon Dioxide 18 L 25 23 BUN 15 10 7 Creatinine 0.93 0.62 0.49 L Glucose 450 H 137 H 226 H Calcium 9.3 8.5 L 8.6 Liver Function 07/16/19 Range/Units 21:49 Total Bilirubin 0.4 (0.3-1.0) mg/dL Direct Bilirubin 0.1 (0.0-0.2) mg/dL AST 13 (13-39) Units/L ALT 28 (7-52) Units/L Alkaline Phosphatase 136 H (34-104) Units/L Albumin 3.6 (3.5-5.7) g/dL Urine 07/16/19 Range/Units 21:16 Urine Color Yellow (Yellow) Urine Clarity Clear (Clear) Urine pH 6.0 (5.0-8.0) pH Units Ur Specific [place] 1.025 (1.010-1.025) Urine Protein Negative (Neg-Trace) mg/dL Urine Glucose (UA) >=1000 H (Normal) mg/dL - Impressions Impressions Abdomen/Pelvis CT 07/16/19 22:46 IMPRESSION: Progressing changes of pyelonephritis with more conspicuous fluid attenuation in both kidneys compatible with abscesses, 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 D/ / 07/17/2019 07:15:23 Nathan Mendez / edison Interpreting Provider: Nathan Mendez Consult Discharge Plan - Plan Referrals: Eliseo Campbell DO [Primary Care Provider] - (1) Sepsis Qualifiers: Sepsis type: sepsis due to unspecified organism Sepsis acute organ dysfu nction status: with acute organ dysfunction Acute renal failure type: with acute renal cortical necrosis Severe sepsis shock status: without septic shock (2) DKA (diabetic ketoacidoses) Qualifiers: Diabetes mellitus type: other specified (including KENN) Diabetes mellitus complication detail: without coma Qualified Code(s): E13.10 - Other specified diabetes mellitus with ketoacidosis without coma (6) Type 1 diabetes mellitus Qualifiers: Diabetes mellitus complication status: with hyperglycemia Qualified Code(s): E10.65 - Type 1 diabetes mellitus with hyperglycemia
[2019-07-18] MEDS: D5% in Water 1,000 ML IVC SCH (04:24)
[2019-07-18] MEDS ORDERED: *HR* Enoxaparin 40 MG/0.4 ML SYRINGE SQ SCH (07:00)
[2019-07-18 07:21] LABS: Basophils % 0.2 %; Eosinophils # 0.1 K/mcL (0.0-0.6); Eosinophils % 0.5 %; Hematocrit 34.1 % (35.3-44.9); Hemoglobin 11.6 g/dL (11.5-15.4); Immature Granulocytes % 1.4 % (0-4); Immature Platelets 3.3 % (1.1-6.1); Lymphocytes % 13.9 %; Mean Corpuscular Hemoglobin 29.9 pg (28.0-33.3); Mean Corpuscular Volume 87.9 fL (83.0-100.0); Mean Platelet Volume 10.1 fL (9.4-12.4); Monocytes # 0.8 K/mcL (0.0-1.3); Monocytes % 6.6 %; Platelet Count 422 K/mcL (140-400); Red Blood Count 3.88 M/mcL (3.82-4.97); Red Cell Distribution Width 14.6 % (11.5-14.5); Segmented Neutrophils % 77.4 %; White Blood Count 11.8 K/mcL (4.3-11.1)
[2019-07-18 07:25] VITALS: BP 102/85
[2019-07-18 07:31] LABS: Lymphocytes # 1.6 K/mcL (0.6-4.6); Neutrophils # 9.1 K/mcL (1.6-8.9)
--- NOTE | 2019-07-18 07:48 | Urology Progress Note ---
Date of Encounter: 07/18/19 Time of Encounter: 07:46 - Assessment and Plan (1) DKA (diabetic ketoacidoses) Current Visit: Yes Status: Acute Assessment and plan: Improved but patient still with elevated blood sugars. Qualifiers: Diabetes mellitus type: other specified (including KENN) Diabetes mellitus complication detail: without coma Qualified Code(s): E13.10 - Other specified diabetes mellitus with ketoacidosis without coma (2) Leukocytosis Current Visit: Yes Status: Acute Qualifiers: Leukocytosis type: unspecified Qualified Code(s): D72.829 - Elevated white blood cell count, unspecified (3) Pyelonephritis Current Visit: Yes Status: Acute (4) Renal abscess Current Visit: Yes Status: Acute Assessment and plan: Interventional radiology at this time recommending IV antibiotics as opposed to drainage. Patient's WBC count dramatically improved. Recommend at this time to continue with current antimicrobial regimen. May need to consider involving infectious disease. Progress Note Narrative: Patient seen this morning. WBC count dramatically improved to 11.8 overnight. Patient feeling better. Patient states that she is considering discharging herself from the hospital to seek a second opinion regarding her kidneys. Objective Initial Vital Signs Temp Pulse Resp BP Pulse Ox 98.7 F 122 20 101/67 97 07/16/19 19:46 07/16/19 19:46 07/16/19 19:46 07/16/19 19:46 07/16/19 19:46 - General physical appearance Present: well developed, well nourished - Respiratory Present: normal expansion, normal respiratory effort - Abdomen Present: soft. Absent: tender - Labs 07/18/19 06:51 07/17/19 15:49 Diabetes panel 07/17/19 07/17/19 Range/Units 15:49 15:49 Sodium 132 L (136-145) mEq/L Potassium 3.4 L (3.5-5.1) mEq/L Chloride 100 (98-107) mEq/L Carbon Dioxide 23 (23-29) mEq/L BUN 7 (6-20) mg/dL Creatinine 0.49 L (0.60-1.20) mg/dL Glucose 226 H (70-105) mg/dL Hemoglobin A1c 8.8 H ( - 5.6) % Calcium 8.6 (8.6-10.3) mg/dL Calcium panel 07/17/19 Range/Units 15:49 Calcium 8.6 (8.6-10.3) mg/dL Pituitary panel 07/17/19 Range/Units 15:49 Sodium 132 L (136-145) mEq/L Potassium 3.4 L (3.5-5.1) mEq/L Chloride 100 (98-107) mEq/L Carbon Dioxide 23 (23-29) mEq/L BUN 7 (6-20) mg/dL Creatinine 0.49 L (0.60-1.20) mg/dL Glucose 226 H (70-105) mg/dL Calcium 8.6 (8.6-10.3) mg/dL Adrenal panel 07/17/19 Range/Units 15:49 Sodium 132 L (136-145) mEq/L Potassium 3.4 L (3.5-5.1) mEq/L Chloride 100 (98-107) mEq/L Carbon Dioxide 23 (23-29) mEq/L BUN 7 (6-20) mg/dL Creatinine 0.49 L (0.60-1.20) mg/dL Glucose 226 H (70-105) mg/dL Calcium 8.6 (8.6-10.3) mg/dL Consult Discharge Plan - Plan Referrals: Eliseo Campbell DO [Primary Care Provider] -
[2019-07-18] MEDS: cefTRIAXone 2,000 MG in Water for inj. (sterile) 20 ML IVPB SCH (08:33)
--- NOTE | 2019-07-18 08:46 | Discharge Summary ---
- NOTES TO OUTPATIENT PROVIDER Notes to Outpatient Provider: Post hospital discharge for diabetic ketoacidosis secondary to malfunctioning of patient's insulin pump-her catheter was displaced without the patient knowing. She needs to follow up with urology within 1 month for renal abscess/pyelonephritis Orders not resulted at time of discharge: Pending orders 07/17/19 02:26 Methanol Stat 07/17/19 03:35 Culture,Blood [BC] Stat Date of Encounter: 07/18/19 Time of Encounter: 08:43 - Discharge Diagnosis (1) Pyelonephritis Priority: Primary Status: Acute Assessment and Plan: She was seen by urology and IR no surgical intervention continue antibiotics, given the extended course of his infection with worsening leukocytosis would add vancomycin in addition to ceftriaxone, patient is requesting discharge and she can go have day celebration with her family, she does not be to be acutely ill with discharge on a 14 day course of Cipro and doxycycline (2) Sepsis Priority: Primary Status: Acute Assessment and Plan: Patient appears to have met sepsis criteria on presentation, but clinically does not appear to be acutely ill, blood cultures pending she is on ceftriaxone for her pyelonephritis with abscess would add vancomycin, for renal abscess she was seen by urologist and interventional radiology recommended continued antibiotics no indication for surgical intervention leukocytosis trended from 25.8 on admission to 11.8, blood culture has been negative so far patient is requested to be discharged of note she threatened to leave AMA yesterday but upon deliberations and negotiations decided to stay. There is no medical indication to keep patient's inpatient she is afebrile with tremendous decrease in her leukocytosis will DC home on ciprofloxacin and doxycycline of note she said allergies to Bactrim Qualifiers: Sepsis type: sepsis due to unspecified organism Sepsis acute organ dysfunction status: with acute organ dysfunction Acute renal failure type: with acute renal cortical necrosis Severe sepsis shock status: without septic shock Qualified Code(s): A41.9 - Sepsis, unspecified organism; R65.20 - Severe sepsis without septic shock; N17.1 - Acute kidney failure with acute cortical necrosis (3) DKA (diabetic ketoacidoses) Priority: Primary Status: Acute Assessment and Plan: Resolved discussed with patient to be more aware of her insulin pump catheter and to adhere to the routine fingersticks for blood glucose. Patient attributes her DKA due to malfunctioning of her insulin pump she claims the catheter fell out, multiple attempts to get the patient to understand that she needs upon of the pump so we can manage DKA appropriately was futile. She tried them to leave AMA if we try to administer any subcutaneous insulin, patient has an abscess of bilateral kidneys as such her living AMA is puts her at risk for severe sepsis. Negotiated with the patient that will watch her try to address her diabetes with the insulin pump for now although not ideal. Since her blood sugar dropped to 62 this morning D5w as 50 mL's /hr will be running, of note her anion gap closed Qualifiers: Diabetes mellitus type: other specified (including KENN) Diabetes mellitus complication detail: without coma Qualified Code(s): E13.10 - Other specified diabetes mellitus with ketoacidosis without coma (4) Hypokalemia Priority: Secondary Status: Acute Assessment and Plan: In the setting of insulin therapy and DKA was supplemented orally (5) Renal abscess Priority: Secondary Status: Acute Assessment and Plan: Interventional radiology no surgical intervention will continue antibiotics as aforementioned (6) Type 1 diabetes mellitus Priority: Primary Status: Acute Assessment and Plan: Continue to reinforce medication / treatment plan adherence A1c is 8.8, patient refuses to turn off her insulin pump so we can manage her appropriately with insulin per protocol, after a long deliberations of which she treated to leave AMA was settled for the patient to continue to use a pump will typically correlate and manage closely D5W ordered at 50 ML's since patient became hypoglycemic earlier this month while on the pump but refused to understand the dangers of possible pump malfunction she appears to have good un derstanding and comprehension for discussion suspect underlying chronic illness induced depression and anxiety from being diabetic since age 4 she stated she would not allow us to administer an insulin subcutaneous Qualifiers: Diabetes mellitus complication status: with hyperglycemia Qualified Code(s): E10.65 - Type 1 diabetes mellitus with hyperglycemia (7) Hyponatremia Priority: Secondary Status: Resolved Assessment and Plan: More likely pseudohyponatremia given her elevated blood glucose corrected sodium is normal (8) DVT prophylaxis Priority: Secondary Status: Acute Assessment and Plan: Discharge today per patient's request Hospital course: Ms. Benedict is a 19 year old female was hospitalized for diabetic ketoacidosis which she attributes to failure of her insulin pump ie the catheter fell out. Patient also was noted to have a renal abscess which was due to to pyelonephritis which was ordered on outpatient antimicrobial therapy. Patient was uncooperative yesterday and treated to leave AMA because she would not discontinue her insulin pump so we can manage her DKA per current medical guidelines. Upon further deliberations given the patient's was meeting sepsis criteria on initial presentation the medical team yielded to the patient's request so she can be evaluated and treated for her renal abscess. She was seen by the urologist and interventional radiologist recommended no further intervention surgically for her renal abscess but with continued antimicrobial therapy. She will be discharged on ciprofloxacin and doxycycline for 14 days Discharge discussed with: patient, nurse - Time Spent with Patient Total time spent providing and/or coordinating discharge services: 37 mins Specific discharge activities: Please take all medications as prescribed and adhere to the treatment plan. Make sure you check your blood glucose routinely to make sure your insulin pump is not malfunctioning again and pleased rotates your catheter sites. Make sure you keep the urology follow-up appointment in 1 month - Discharge Medications Prescriptions: New Doxycycline 100 mg PO BID 14 Days #28 capsule Continued Subcutaneous Insulin Pump [T:Slim] 1 each MC AD Ondansetron [Zofran ODT] 8 mg SL Q8H PRN 4 Days #12 tab PRN Reason: Nausea And Vomiting Ciprofloxacin [Cipro] 500 mg PO BID 14 Days #28 tablet Changed OxyCODONE/APAP 5/325 [Percocet 5/325 MG] 1 tab PO Q6HR PRN 7 Days #28 tablet PRN Reason: Severe Pain Home Medications: Subcutaneous Insulin Pump [T:Slim] 1 each MC AD 07/07/19 [History] Ondansetron [Zofran ODT] 8 mg SL Q8H PRN 4 Days #12 tab 07/12/19 [Rx] Ciprofloxacin [Cipro] 500 mg PO BID 14 Days #28 tablet 07/18/19 [Rx] Doxycycline 100 mg PO BID 14 Days #28 capsule 07/18/19 [Rx] OxyCODONE/APAP 5/325 [Percocet 5/325 MG] 1 tab PO Q6HR PRN 7 Days #28 tablet 07/18/19 [Rx] Allergies/Adverse Reactions: Allergy/AdvReac Type Severity Reaction Status Date / Time insulin glargine AdvReac Rash Verified 07/17/19 10:07 [From Basaglar KwikPen U-100 Insulin] sulfamethoxazole AdvReac See Verified 07/17/19 10:07 [From Bactrim] Comments trimethoprim [From Bactrim] AdvReac See Verified 07/17/19 10:07 Comments Date of admission: 07/17/19 04:20 Primary care physician: Eliseo Smith DO Consults: 07/17/19 03:07 Consult to Urology [CONS] Stat Consulting Provider: Urology Ramila Reason for Consult: renal abscess Time Notified: 03:07 Call Completed: No 07/17/19 04:05 Consult to Interventional Radiology [CONS] Routine Consulting Provider: Radiology Interventional Cols Reason for Consult: Evaluate feasibility of fluid collection drainage Call Completed: Yes Discharging clinician: Víctor Reed Anticipated date of discharge: 07/18/19 - Constitutional Vitals: Temp Pulse Resp BP Pulse Ox 97.5 F L 79 16 102/85 98 07/18/19 07:17 07/18/19 07:17 07/18/19 07:17 07/18/19 07:17 07/18/19 00:03 Exam: GEN: NAD, A&O x 3, Pleasant and conversant SKIN: [place] warm acyanotic not jaundice HEART: RRR, no murmurs LUNGS: CTA no wheeze or crackles, overall non labored ABDOMEN; Soft, non tender or distended, BS x 4 normactive EXT: No LE edema, Pedal pulses 1+, radial pulses 2+ PSYCH: Mood and affect is appropriate - Patient Status Disposition: Home, Self-Care Condition: Good Functional capacity at discharge: independent ambulation Overall status at discharge: patient is back to baseline - Discharge Instructions Instructions: Diabetes Mellitus Type 2 in Adults (DC), Sepsis (DC) Follow Up With: Eliseo Campbell DO [Primary Care Provider] - - Diet and Activity Activity: resume usual activities as tolerated Diet: diabetic diet
[2019-07-18] MEDS ORDERED: Aminoglycoside Consult 1 EACH MC ONE (11:52)
== END 2019-07-18 11:53 | disposition home or self-care (01) | DRG 813 ==
LOC: EMEROOARM 19:21 → 2NNU 19:21 → SUATTDRO 07-17 04:20
PROVIDERS: ADMIT Internal Medicine; ATTEND Pharmacist

== ENCOUNTER 2019-12-14 08:01 | Inpatient (IN) ==
[2019-12-14 08:38] LABS: Bilirubin,Urine Negative (Negative); Blood,Urine Negative (Negative); Clarity,Urine Clear (Clear); Color,Urine Yellow (Yellow); Glucose,Urine (UA) >=1000 mg/dL (Normal); Ketones,Urine 80 mg/dL (Negative); Leukocyte Esterase,Urine Negative (Negative); Nitrite,Urine Negative (Negative); PH,Urine 5.5 pH Units (5.0-8.0); Protein,Urine Negative (Neg-Trace); Specific Gravity,Urine 1.027 (1.010-1.025); Urobilinogen,Urine Normal (Normal)
[2019-12-14 09:08] LABS: VBG HCO3 6 mEq/L (21-27); VBG PCO2 20 mmHg (41-51); VBG PH 7.07 pH Units (7.32-7.42); VBG PO2 124 mmHg (25-50)
[2019-12-14] MEDS: 0.9 % Sodium Chloride 1,000 ML IVC SCH ×4 (09:08→22:03)
[2019-12-14 09:22] LABS: Hematocrit 43.6 % (35.3-44.9); Mean Corpuscular HGB Conc 30.7 g/dL (31.6-35.5); Mean Corpuscular Hemoglobin 31.3 pg (28.0-33.3); Mean Platelet Volume 10.8 fL (9.4-12.4); Platelet Count 386 K/mcL (140-400); Red Blood Count 4.28 M/mcL (3.82-4.97); Red Cell Distribution Width 12.8 % (11.5-14.5)
[2019-12-14] MEDS ORDERED: Ondansetron 4 MG/2 ML VIAL IVP ONE (09:23)
[2019-12-14 09:30] LABS: Albumin 4.3 g/dL (3.5-5.7); Albumin/Globulin Ratio 1.3 (1.1-2.2); Bilirubin,Total 0.3 mg/dL (0.3-1.0); Calcium 9.9 mg/dL (8.6-10.3); Globulin 3.4 g/dL (2.4-3.5); Potassium 7.5 mEq/L (3.5-5.1); Total Protein 7.7 g/dL (6.4-8.9)
[2019-12-14 09:35] LABS: Hemoglobin 13.4 g/dL (11.5-15.4); Mean Corpuscular Volume 101.9 fL (83.0-100.0)
[2019-12-14 09:38] LABS: White Blood Count 33.2 K/mcL (4.3-11.1)
[2019-12-14] MEDS ORDERED: Sodium Bicarbonate 50 MEQ/50 ML VIAL IVP ONE (09:38)
[2019-12-14] MEDS ORDERED: Sodium Bicarbonate 50 MEQ/50 ML VIAL ONE (09:40)
[2019-12-14] MEDS ORDERED: *HR* Dextrose 50 % in Water (Syg) 50 ML SYRINGE IVP PRN ×2 (09:42→11:56)
[2019-12-14 09:48] LABS: Monocytes # 1.3 K/mcL (0.0-1.3); Neutrophils # 29.9 K/mcL (1.6-8.9)
[2019-12-14 09:49] LABS: Platelet Estimate Normal (Normal)
[2019-12-14] MEDS ORDERED: Aminoglycoside Consult 1 EACH MC ONE (10:24)
[2019-12-14] MEDS: Insulin Human Regular 100 UNIT in 0.9 % Sodium Chloride 100 ML IVC SCH ×2 (11:01→22:41)
[2019-12-14] MEDS ORDERED: Naloxone 0.4 MG/ML INJ IVP PRN (11:53)
[2019-12-14] MEDS ORDERED: Insulin Regular, Human 100 UNIT/ML IV PRN ×2 (11:56→12:09)
[2019-12-14 12:11] LABS: INR 1.3; Prothrombin Time 14.5 Seconds (9.4-12.1)
[2019-12-14 12:41] LABS: Alanine Aminotransferase 18 Units/L (7-52); Albumin 3.6 g/dL (3.5-5.7); Albumin/Globulin Ratio 1.3 (1.1-2.2); Alkaline Phosphatase 127 Units/L (34-104); Aspartate Amino Transferase 25 Units/L (13-39); BUN/Creatinine Ratio 29 (6-26); Bilirubin,Total 0.4 mg/dL (0.3-1.0); Blood Urea Nitrogen 40 mg/dL (6-20); Calcium 9.1 mg/dL (8.6-10.3); Carbon Dioxide 4 mEq/L (23-29); Chloride 93 mEq/L (98-107); Globulin 2.8 g/dL (2.4-3.5); Glucose 856 mg/dL (70-105); Magnesium 2.7 mg/dL (1.6-2.6); Osmolality,Calculated 320 (280-300); Phosphorous 6.5 mg/dL (2.7-4.5); Potassium 4.9 mEq/L (3.5-5.1); Sodium 129 mEq/L (136-145); Total Protein 6.4 g/dL (6.4-8.9); eGFR For African Americans > 60 (> 60); eGFR For Non-African Americans 50 (> 60)
[2019-12-14] MEDS ORDERED: Azithromycin 500 MG in 0.9 % Sodium Chloride 250 ML IVPB SCH (13:00)
[2019-12-14] MEDS: 0.45 % Sodium Chloride w/KCl 20 MEQ/1,000 ML MLS IVC SCH ×3 (13:26→22:02)
[2019-12-14 14:03] LABS: Amphetamine Screen,Urine Negative ng/mL (Cutoff=1000); Barbiturate Screen,Urine Negative ng/mL (Cutoff=200); Benzodiazepines Screen,Urine Negative ng/mL (Cutoff=200); Cannabinoid Screen,Urine Negative ng/mL (Cutoff = 50); Cocaine Screen,Urine Negative ng/mL (Cutoff= 300); Opiate Screen,Urine Negative ng/mL (Cutoff=300); Phencyclidine Screen,Urine Negative ng/mL (Cutoff=25)
[2019-12-14 14:42] LABS: Bilirubin,Urine Negative (Negative); Clarity,Urine Clear (Clear); Color,Urine Colorless (Yellow); Glucose,Urine (UA) >=1000 mg/dL (Normal); Ketones,Urine >=160 mg/dL (Negative); Specific Gravity,Urine 1.023 (1.010-1.025)
[2019-12-14 14:43] LABS: Blood,Urine Trace (Negative); Leukocyte Esterase,Urine Negative (Negative); Nitrite,Urine Negative (Negative); Protein,Urine Negative (Neg-Trace); Urobilinogen,Urine Normal (Normal)
[2019-12-14 14:49] LABS: Mucus,Urine Few per lpf (Few); Squamous Epithelial Cell,Urine Many per lpf (None-Few)
[2019-12-14 14:50] LABS: Bacteria,Urine Few per hpf (None-Few); RBC,Urine 0-3 per hpf (0-3); WBC,Urine 0-3 per hpf (0-3)
[2019-12-14] MEDS ORDERED: cefTRIAXone 1,000 MG in Water for inj. (sterile) 10 ML IVP SCH (16:00)
[2019-12-14] MEDS ORDERED: *HR* Promethazine 25 MG/ML VIAL IVP PRN (16:58)
[2019-12-14 17:44] LABS: Basophils # 0.1 K/mcL (0.0-0.2); Basophils % 0.4 %; Hematocrit 36.1 % (35.3-44.9); Hemoglobin 11.9 g/dL (11.5-15.4); Immature Granulocytes % 3.1 % (0-4); Lymphocytes # 2.5 K/mcL (0.6-4.6); Lymphocytes % 7.1 %; Mean Corpuscular Hemoglobin 31.6 pg (28.0-33.3); Mean Platelet Volume 10.4 fL (9.4-12.4); Monocytes # 2.4 K/mcL (0.0-1.3); Monocytes % 6.8 %; Neutrophils # 29.5 K/mcL (1.6-8.9); Platelet Count 291 K/mcL (140-400); Red Blood Count 3.76 M/mcL (3.82-4.97); Red Cell Distribution Width 12.6 % (11.5-14.5); Segmented Neutrophils % 82.6 %
[2019-12-14 17:49] LABS: White Blood Count 35.7 K/mcL (4.3-11.1)
[2019-12-14 18:06] LABS: BUN/Creatinine Ratio 27 (6-26); Blood Urea Nitrogen 34 mg/dL (6-20); Calcium 8.5 mg/dL (8.6-10.3); Carbon Dioxide 7 mEq/L (23-29); Chloride 104 mEq/L (98-107); Glucose 458 mg/dL (70-105); Osmolality,Calculated 308 (280-300); Potassium 5.1 mEq/L (3.5-5.1); Sodium 135 mEq/L (136-145); eGFR For African Americans > 60 (> 60); eGFR For Non-African Americans 54 (> 60)
[2019-12-14 18:53] LABS: Estimated Average Glucose 249 mg/dl
[2019-12-14 21:00] LABS: Basophils % 0.3 %
[2019-12-14 21:02] LABS: Basophils # 0.1 K/mcL (0.0-0.2); Hematocrit 33.9 % (35.3-44.9); Hemoglobin 11.6 g/dL (11.5-15.4); Immature Granulocytes % 1.2 % (0-4); Lymphocytes # 2.5 K/mcL (0.6-4.6); Lymphocytes % 9.1 %; Mean Corpuscular HGB Conc 34.2 g/dL (31.6-35.5); Mean Corpuscular Hemoglobin 31.9 pg (28.0-33.3); Mean Corpuscular Volume 93.1 fL (83.0-100.0); Monocytes # 1.6 K/mcL (0.0-1.3); Monocytes % 5.9 %; Neutrophils # 23.1 K/mcL (1.6-8.9); Platelet Count 251 K/mcL (140-400); Red Blood Count 3.64 M/mcL (3.82-4.97); Red Cell Distribution Width 12.5 % (11.5-14.5); Segmented Neutrophils % 83.5 %; White Blood Count 27.7 K/mcL (4.3-11.1)
[2019-12-14 21:15] LABS: BUN/Creatinine Ratio 29 (6-26); Blood Urea Nitrogen 30 mg/dL (6-20); Calcium 8.5 mg/dL (8.6-10.3); Carbon Dioxide 11 mEq/L (23-29); Chloride 111 mEq/L (98-107); Glucose 270 mg/dL (70-105); Osmolality,Calculated 296 (280-300); Potassium 4.4 mEq/L (3.5-5.1); Sodium 135 mEq/L (136-145); eGFR For African Americans > 60 (> 60); eGFR For Non-African Americans > 60 (> 60)
[2019-12-14 23:10] LABS: Adenovirus Not Detected (Not Detect); Bordetella Pertussis Not Detected (Not Detect); Chlamydophila pneumoniae Not Detected (Not Detect); Coronavirus 229E Not Detected (Not Detect); Coronavirus HKU1 Not Detected (Not Detect); Coronavirus NL63 Not Detected (Not Detect); Coronavirus OC43 Not Detected (Not Detect); Human Metapneumovirus Not Detected (Not Detect); Human Rhinovirus/Enterovirus Not Detected (Not Detect); Influenza A Subtype 2009 H1 Not Detected (Not Detect); Influenza B Not Detected (Not Detect); Mycoplasma pneumoniae Not Detected (Not Detect); Parainfluenza Virus 1 Not Detected (Not Detect); Parainfluenza Virus 2 Not Detected (Not Detect); Parainfluenza Virus 3 Not Detected (Not Detect); Parainfluenza Virus 4 Not Detected (Not Detect); Respiratory Syncytial Virus Not Detected (Not Detect)
[2019-12-15 00:48] LABS: Basophils # 0.1 K/mcL (0.0-0.2); Basophils % 0.2 %; Hematocrit 33.1 % (35.3-44.9); Hemoglobin 11.6 g/dL (11.5-15.4); Immature Granulocytes % 0.8 % (0-4); Lymphocytes # 2.1 K/mcL (0.6-4.6); Lymphocytes % 8.6 %; Mean Corpuscular Volume 88.5 fL (83.0-100.0); Mean Platelet Volume 9.9 fL (9.4-12.4); Monocytes # 1.9 K/mcL (0.0-1.3); Monocytes % 7.7 %; Neutrophils # 20.2 K/mcL (1.6-8.9); Platelet Count 273 K/mcL (140-400); Red Blood Count 3.74 M/mcL (3.82-4.97); Red Cell Distribution Width 12.6 % (11.5-14.5); Segmented Neutrophils % 82.7 %; White Blood Count 24.4 K/mcL (4.3-11.1)
[2019-12-15 01:02] LABS: BUN/Creatinine Ratio 28 (6-26); Blood Urea Nitrogen 25 mg/dL (6-20); Calcium 8.4 mg/dL (8.6-10.3); Carbon Dioxide 15 mEq/L (23-29); Chloride 116 mEq/L (98-107); Glucose 89 mg/dL (70-105); Osmolality,Calculated 290 (280-300); Potassium 4.1 mEq/L (3.5-5.1); Sodium 138 mEq/L (136-145); eGFR For African Americans > 60 (> 60); eGFR For Non-African Americans > 60 (> 60)
[2019-12-15] MEDS: *HR* Dextrose 50 % in Water (Syg) 50 ML SYRINGE IVP PRN ×2 (01:45→05:42)
[2019-12-15] MEDS: 0.45 % Sodium Chloride w/KCl 20 MEQ/1,000 ML MLS IVC SCH ×5 (02:09→22:34)
[2019-12-15] MEDS: Insulin Human Regular 100 UNIT in 0.9 % Sodium Chloride 100 ML IVC SCH (02:23)
[2019-12-15 03:54] LABS: Basophils # 0.1 K/mcL (0.0-0.2); Basophils % 0.2 %; Eosinophils % 0.1 %; Hematocrit 33.7 % (35.3-44.9); Hemoglobin 11.5 g/dL (11.5-15.4); Immature Granulocytes % 1.2 % (0-4); Lymphocytes # 1.7 K/mcL (0.6-4.6); Lymphocytes % 6.7 %; Mean Corpuscular HGB Conc 34.1 g/dL (31.6-35.5); Mean Corpuscular Hemoglobin 31.8 pg (28.0-33.3); Mean Corpuscular Volume 93.1 fL (83.0-100.0); Mean Platelet Volume 10.2 fL (9.4-12.4); Monocytes # 1.4 K/mcL (0.0-1.3); Monocytes % 5.7 %; Neutrophils # 21.5 K/mcL (1.6-8.9); Platelet Count 235 K/mcL (140-400); Red Blood Count 3.62 M/mcL (3.82-4.97); Red Cell Distribution Width 12.7 % (11.5-14.5); Segmented Neutrophils % 86.1 %
[2019-12-15 04:07] LABS: BUN/Creatinine Ratio 26 (6-26); Blood Urea Nitrogen 23 mg/dL (6-20); Calcium 8.4 mg/dL (8.6-10.3); Carbon Dioxide 14 mEq/L (23-29); Chloride 113 mEq/L (98-107); Glucose 96 mg/dL (70-105); Osmolality,Calculated 292 (280-300); Potassium 4.2 mEq/L (3.5-5.1); Sodium 139 mEq/L (136-145); eGFR For African Americans > 60 (> 60); eGFR For Non-African Americans > 60 (> 60)
[2019-12-15] MEDS: 0.9 % Sodium Chloride 1,000 ML IVC SCH ×2 (07:56→22:31)
[2019-12-15] MEDS ORDERED: *HR* Dextrose 50 % in Water (Syg) 50 ML SYRINGE IVP PRN ×4 (08:01→12:30)
[2019-12-15] MEDS ORDERED: Dextrose Gel 15 GM/37.5 ML TUBE PO PRN ×4 (08:01→12:30)
[2019-12-15] MEDS ORDERED: D5% in Water 1,000 ML IVC PRN ×2 (08:01→12:30)
[2019-12-15] MEDS ORDERED: 0.45 % Sodium Chloride w/KCl 20 MEQ/1,000 ML MLS IVC SCH (08:04)
[2019-12-15] MEDS: Insulin DETEMIR 100 UNIT/ML X5UNITS SQ SCH ×3 (08:42→22:47)
[2019-12-15] MEDS ORDERED: *HR* Promethazine 25 MG/ML VIAL IVP PRN ×2 (08:53→12:30)
[2019-12-15] MEDS ORDERED: Pantoprazole 40 MG VIAL IVP SCH (09:00)
[2019-12-15] MEDS ORDERED: cefTRIAXone 1,000 MG in Water for inj. (sterile) 10 ML IVP SCH ×2 (09:00→15:00)
[2019-12-15 09:25] LABS: Alanine Aminotransferase 18 Units/L (7-52); Albumin 3.2 g/dL (3.5-5.7); Albumin/Globulin Ratio 1.3 (1.1-2.2); Alkaline Phosphatase 86 Units/L (34-104); Aspartate Amino Transferase 24 Units/L (13-39); BUN/Creatinine Ratio 23 (6-26); Bilirubin,Total 0.5 mg/dL (0.3-1.0); Blood Urea Nitrogen 19 mg/dL (6-20); Calcium 8.4 mg/dL (8.6-10.3); Carbon Dioxide 14 mEq/L (23-29); Chloride 112 mEq/L (98-107); Globulin 2.5 g/dL (2.4-3.5); Glucose 103 mg/dL (70-105); Magnesium 1.8 mg/dL (1.6-2.6); Osmolality,Calculated 289 (280-300); Potassium 4.3 mEq/L (3.5-5.1); Sodium 138 mEq/L (136-145); Total Protein 5.7 g/dL (6.4-8.9); eGFR For African Americans > 60 (> 60); eGFR For Non-African Americans > 60 (> 60)
[2019-12-15 10:00] LABS: Estimated Average Glucose 252 mg/dl
[2019-12-15] MEDS ORDERED: Insulin LISPRO 300 UNITS/3 ML VIAL SQ SCH ×3 (11:30→21:00)
[2019-12-15] MEDS ORDERED: Naloxone 0.4 MG/ML INJ IVP PRN (12:30)
[2019-12-15] MEDS: Ringers Solution, Lactated 1,000 ML IVC SCH (13:55)
[2019-12-15] MEDS ORDERED: Azithromycin 500 MG in 0.9 % Sodium Chloride 250 ML IVPB SCH (15:00)
[2019-12-15] MEDS: Insulin LISPRO 300 UNITS/3 ML VIAL SQ SCH (16:08)
[2019-12-15 17:41] LABS: Alanine Aminotransferase 18 Units/L (7-52); Albumin 3.1 g/dL (3.5-5.7); Albumin/Globulin Ratio 1.2 (1.1-2.2); Alkaline Phosphatase 90 Units/L (34-104); Aspartate Amino Transferase 29 Units/L (13-39); BUN/Creatinine Ratio 18 (6-26); Bilirubin,Total 0.4 mg/dL (0.3-1.0); Blood Urea Nitrogen 15 mg/dL (6-20); Calcium 8.5 mg/dL (8.6-10.3); Carbon Dioxide 13 mEq/L (23-29); Chloride 112 mEq/L (98-107); Globulin 2.5 g/dL (2.4-3.5); Glucose 214 mg/dL (70-105); Magnesium 2.5 mg/dL (1.6-2.6); Osmolality,Calculated 293 (280-300); Phosphorous 1.3 mg/dL (2.7-4.5); Potassium 4.9 mEq/L (3.5-5.1); Sodium 138 mEq/L (136-145); Total Protein 5.6 g/dL (6.4-8.9); eGFR For African Americans > 60 (> 60); eGFR For Non-African Americans > 60 (> 60)
[2019-12-15 18:38] LABS: Amphetamines NEGATIVE ng/mL (Cutoff 30); Barbiturates NEGATIVE ng/mL (Cutoff 75); Benzodiazepines NEGATIVE ng/mL (Cutoff 75); Buprenorphine NEGATIVE ng/mL (Cutoff 1); Cocaine NEGATIVE ng/mL (Cutoff 30); Methadone NEGATIVE ng/mL (Cutoff 40); Methamphetamines NEGATIVE ng/mL (Cutoff 30); Opiates NEGATIVE ng/mL (Cutoff 30); Phencyclidine NEGATIVE ng/mL (Cutoff 15)
[2019-12-15 23:53] LABS: BUN/Creatinine Ratio 16 (6-26); Blood Urea Nitrogen 13 mg/dL (6-20); Calcium 8.1 mg/dL (8.6-10.3); Carbon Dioxide 15 mEq/L (23-29); Chloride 112 mEq/L (98-107); Glucose 209 mg/dL (70-105); Osmolality,Calculated 292 (280-300); Potassium 4.5 mEq/L (3.5-5.1); Sodium 138 mEq/L (136-145); eGFR For African Americans > 60 (> 60); eGFR For Non-African Americans > 60 (> 60)
[2019-12-16] MEDS ORDERED: Menthol 9.1 MG LOZENGE PO PRN (02:05)
[2019-12-16] MEDS: Ringers Solution, Lactated 1,000 ML IVC SCH (04:00)
[2019-12-16 06:19] LABS: Alanine Aminotransferase 20 Units/L (7-52); Albumin 2.8 g/dL (3.5-5.7); Albumin/Globulin Ratio 1.3 (1.1-2.2); Alkaline Phosphatase 73 Units/L (34-104); Aspartate Amino Transferase 25 Units/L (13-39); BUN/Creatinine Ratio 14 (6-26); Bilirubin,Total 0.5 mg/dL (0.3-1.0); Blood Urea Nitrogen 10 mg/dL (6-20); Carbon Dioxide 22 mEq/L (23-29); Chloride 108 mEq/L (98-107); Globulin 2.1 g/dL (2.4-3.5); Glucose 197 mg/dL (70-105); Magnesium 1.8 mg/dL (1.6-2.6); Osmolality,Calculated 293 (280-300); Phosphorous 2.5 mg/dL (2.7-4.5); Potassium 3.4 mEq/L (3.5-5.1); Sodium 139 mEq/L (136-145); Total Protein 4.9 g/dL (6.4-8.9); eGFR For African Americans > 60 (> 60); eGFR For Non-African Americans > 60 (> 60)
[2019-12-16 07:26] VITALS: BP 137/87
[2019-12-16 08:01] LABS: Hematocrit 30.5 % (35.3-44.9); Hemoglobin 10.5 g/dL (11.5-15.4); Mean Corpuscular HGB Conc 34.4 g/dL (31.6-35.5); Mean Corpuscular Hemoglobin 31.2 pg (28.0-33.3); Mean Corpuscular Volume 90.5 fL (83.0-100.0); Platelet Count 172 K/mcL (140-400); Red Blood Count 3.37 M/mcL (3.82-4.97); Red Cell Distribution Width 13.2 % (11.5-14.5)
[2019-12-16 08:03] LABS: White Blood Count 11.2 K/mcL (4.3-11.1)
[2019-12-16] MEDS ORDERED: Pantoprazole 40 MG VIAL IVP SCH (09:00)
[2019-12-16] MEDS: Insulin DETEMIR 100 UNIT/ML X5UNITS SQ SCH (09:22)
[2019-12-16] MEDS: Insulin LISPRO 300 UNITS/3 ML VIAL SQ SCH (09:22)
[2019-12-16] MEDS ORDERED: Azithromycin 250 MG TABLET PO SCH (15:00)
== END 2019-12-16 12:04 | disposition home or self-care (01) | DRG 720 ==
LOC: ICNU 08:01 → EMEROOARM 08:01 → ICNU 11:15 → SUATTDRO 11:53 → 3ANU 12-15 16:40
PROVIDERS: ADMIT Pediatrics; ATTEND Family Medicine

== ENCOUNTER → 2020-07-03 16:41 | Observation (INO) ==
[2020-07-03 14:01] LABS: ABG Base Excess -5 mEq/L (-2 to 3); ABG HCO3 18 mEq/L (21-27); ABG Oxygen Saturation 99 % (95-98); ABG PCO2 26 mmHg (35-45); ABG PH 7.45 pH Units (7.32-7.45); ABG PO2 115 mmHg (85-104); ABG TCO2 19 mEq/L (20-26)
[2020-07-03 14:05] LABS: Bacteria,Urine Few per hpf (None-Few); Bilirubin,Urine Negative (Negative); Blood,Urine Large (Negative); Clarity,Urine Clear (Clear); Color,Urine Colorless (Yellow); Glucose,Urine (UA) >=1000 mg/dL (Normal); Ketones,Urine 20 mg/dL (Negative); Leukocyte Esterase,Urine Trace (Negative); Mucus,Urine Few per lpf (None-Few); Nitrite,Urine Negative (Negative); PH,Urine 6.5 pH Units (5.0-8.0); Protein,Urine Negative (Neg-Trace); RBC,Urine 30-50 per hpf (0-3); Specific Gravity,Urine 1.021 (1.010-1.025); Squamous Epithelial Cell,Urine Few per hpf (None-Few); Urobilinogen,Urine Normal (Normal)
[2020-07-03 15:20] LABS: Alanine Aminotransferase 8 Units/L (7-52); Albumin 3.3 g/dL (3.5-5.7); Albumin/Globulin Ratio 1.1 (1.1-2.2); Alkaline Phosphatase 96 Units/L (34-104); Aspartate Amino Transferase 10 Units/L (13-39); BUN/Creatinine Ratio 23 (6-26); Bilirubin,Total 0.4 mg/dL (0.3-1.0); Blood Urea Nitrogen 13 mg/dL (6-20); Carbon Dioxide 20 mEq/L (23-29); Chloride 100 mEq/L (98-107); Glucose 496 mg/dL (70-105); Osmolality,Calculated 292 (280-300); Potassium 4.3 mEq/L (3.5-5.1); Sodium 130 mEq/L (136-145); Total Protein 6.3 g/dL (6.4-8.9); eGFR For African Americans > 60 (> 60); eGFR For Non-African Americans > 60 (> 60)
[2020-07-03 15:47] LABS: Basophils % 0.1 %; Eosinophils % 0.1 %; Hemoglobin 11.7 g/dL (11.5-15.4); Immature Granulocytes % 0.5 % (0-4); Lymphocytes # 1.6 K/mcL (0.6-4.6); Lymphocytes % 10.5 %; Mean Corpuscular HGB Conc 34.4 g/dL (31.6-35.5); Mean Corpuscular Hemoglobin 32.1 pg (28.0-33.3); Mean Corpuscular Volume 93.2 fL (83.0-100.0); Mean Platelet Volume 9.8 fL (9.4-12.4); Monocytes # 0.7 K/mcL (0.0-1.3); Monocytes % 4.3 %; Neutrophils # 12.9 K/mcL (1.6-8.9); Platelet Count 185 K/mcL (140-400); Red Blood Count 3.65 M/mcL (3.82-4.97); Red Cell Distribution Width 12.3 % (11.5-14.5); Segmented Neutrophils % 84.5 %; White Blood Count 15.3 K/mcL (4.3-11.1)
[~2020-07-03 16:41] MED LIST: 0.9 % Sodium Chloride 1,000 ML IVC SCH; 0.9 % Sodium Chloride 1,000 ML ONE; 0.9 % Sodium Chloride 500 ML IVC ONE; Betamethasone Acet/SodPhos 30 MG/5 ML VIAL IM SCH; Insulin Regular, Human 100 UNIT/ML SQ ONE
== END | disposition left against medical advice (07) ==
LOC: 1NENULAB
PROVIDERS: ADMIT Obstetrics & Gynecology; ATTEND Obstetrics & Gynecology

== ENCOUNTER → 2020-07-23 21:00 | Observation (INO) ==
[2020-07-23 19:31] LABS: Bilirubin,Urine Negative (Negative); Blood,Urine Negative (Negative); Clarity,Urine Clear (Clear); Color,Urine Colorless (Yellow); Glucose,Urine (UA) >=1000 mg/dL (Normal); Ketones,Urine Negative (Negative); Leukocyte Esterase,Urine Small (Negative); Nitrite,Urine Negative (Negative); Protein,Urine Negative (Neg-Trace); RBC,Urine 0-3 per hpf (0-3); Specific Gravity,Urine 1.022 (1.010-1.025); Squamous Epithelial Cell,Urine Few per hpf (None-Few); Urobilinogen,Urine Normal (Normal); WBC,Urine 30-50 per hpf (0-3)
[~2020-07-23 21:00] MED LIST changes: -0.9 % Sodium Chloride 1,000 ML IVC SCH; -0.9 % Sodium Chloride 1,000 ML ONE; -0.9 % Sodium Chloride 500 ML IVC ONE; +Acetaminophen 325 MG TABLET PO ONE; -Betamethasone Acet/SodPhos 30 MG/5 ML VIAL IM SCH; -Insulin Regular, Human 100 UNIT/ML SQ ONE
== END | disposition home or self-care (01) ==
LOC: 1NENULAB
PROVIDERS: ADMIT Obstetrics & Gynecology; ATTEND Obstetrics & Gynecology

== ENCOUNTER 2020-10-11 07:06 | Observation (INO) ==
[2020-10-11] MEDS ORDERED: 0.9 % Sodium Chloride 1,000 ML IVC ONE ×2 (07:24→19:26)
[2020-10-11] MEDS ORDERED: Ondansetron 4 MG/2 ML VIAL IVP ONE (07:24)
[2020-10-11] MEDS ORDERED: Isovue-370 500 ML BOTTLE IVP ONE (07:27)
[2020-10-11] MEDS ORDERED: Ketorolac 15 MG/ML VIAL IVP ONE (07:28)
[2020-10-11] MEDS ORDERED: *HR* FentaNYL (PF) 100 MCG/2 ML VIAL IVP STA (07:28)
[2020-10-11] MEDS ORDERED: 0.9 % Sodium Chloride 500 ML IVC ONE (07:36)
[2020-10-11 08:24] LABS: Basophils % 0.2 %; Immature Granulocytes % 0.6 % (0-4); Lymphocytes % 3.1 %; Mean Corpuscular HGB Conc 32.4 g/dL (31.6-35.5); Mean Corpuscular Hemoglobin 28.4 pg (28.0-33.3); Mean Corpuscular Volume 87.9 fL (83.0-100.0); Mean Platelet Volume 9.3 fL (9.4-12.4); Monocytes # 1.7 K/mcL (0.0-1.3); Monocytes % 6.9 %; Neutrophils # 21.5 K/mcL (1.6-8.9); Platelet Count 324 K/mcL (140-400); Red Blood Count 3.87 M/mcL (3.82-4.97); Red Cell Distribution Width 13.7 % (11.5-14.5); Segmented Neutrophils % 89.2 %; White Blood Count 24.1 K/mcL (4.3-11.1)
[2020-10-11 08:27] LABS: Basophils # 0.1 K/mcL (0.0-0.2); Lymphocytes # 0.8 K/mcL (0.6-4.6)
[2020-10-11 08:31] LABS: VBG HCO3 25 mEq/L (21-27); VBG PCO2 39 mmHg (41-51); VBG PH 7.41 pH Units (7.32-7.42); VBG PO2 180 mmHg (25-50)
[2020-10-11 08:43] LABS: BUN/Creatinine Ratio 11 (6-26); Blood Urea Nitrogen 7 mg/dL (6-20); Calcium 8.5 mg/dL (8.6-10.3); Carbon Dioxide 22 mEq/L (23-29); Chloride 104 mEq/L (98-107); Glucose 148 mg/dL (70-105); Osmolality,Calculated 283 (280-300); Potassium 3.3 mEq/L (3.5-5.1); Sodium 136 mEq/L (136-145); eGFR For African Americans > 60 (> 60); eGFR For Non-African Americans > 60 (> 60)
[2020-10-11 08:52] LABS: Platelet Estimate Normal (Normal)
[2020-10-11 09:21] LABS: Bacteria,Urine Moderate per hpf (None-Few); Bilirubin,Urine Negative (Negative); Blood,Urine Moderate (Negative); Clarity,Urine Ex.Turbid (Clear); Color,Urine Yellow (Yellow); Glucose,Urine (UA) 50 mg/dL (Normal); Ketones,Urine 20 mg/dL (Negative); Leukocyte Esterase,Urine Large (Negative); Mucus,Urine Few per lpf (None-Few); Nitrite,Urine Negative (Negative); Protein,Urine 100 mg/dL (Neg-Trace); RBC,Urine 15-30 per hpf (0-3); Specific Gravity,Urine 1.013 (1.010-1.025); Squamous Epithelial Cell,Urine Few per hpf (None-Few); Urobilinogen,Urine Normal (Normal); WBC,Urine TNTC per hpf (0-3)
[2020-10-11] MEDS ORDERED: cefTRIAXone 1,000 MG in Water for inj. (sterile) 10 ML IVP ONE (09:31)
[2020-10-11] MEDS ORDERED: *HR* HYDROmorphone (PF) 1 MG/ML SYRINGE IVP STA (10:34)
[2020-10-11] MEDS ORDERED: Naloxone 0.4 MG/ML INJ IVP PRN (11:14)
[2020-10-11] MEDS ORDERED: Potassium Chloride 20 MEQ, Lidocaine 1% 2 ML in 0.9 % Sodium Chloride 250 ML IVPB ONE (11:15)
[2020-10-11] MEDS ORDERED: 0.9 % Sodium Chloride 1,000 ML IVC SCH (11:15)
[2020-10-11] MEDS ORDERED: Ondansetron 4 MG/2 ML VIAL IVP PRN (11:17)
[2020-10-11] MEDS ORDERED: *HR* HYDROcodone/Acet 5/325 mg TABLET PO PRN (11:17)
[2020-10-11] MEDS ORDERED: D5% in Water 1,000 ML IVC PRN (12:08)
[2020-10-11] MEDS ORDERED: *HR* Dextrose 50 % in Water (Vial) 50 ML VIAL IVP PRN (12:08)
[2020-10-11] MEDS ORDERED: Dextrose Gel 15 GM/37.5 ML TUBE PO PRN ×2 (12:08)
[2020-10-11] MEDS ORDERED: *HR* OxyCODONE Immed Rel 5 MG TABLET PO PRN ×2 (12:11)
[2020-10-11] MEDS ORDERED: Insulin DETEMIR 100 UNIT/ML X5UNITS SQ SCH (12:15)
[2020-10-11] MEDS ORDERED: Insulin LISPRO 300 UNITS/3 ML VIAL SQ SCH ×3 (12:15→21:00)
[2020-10-11] MEDS ORDERED: *HR* Heparin 5,000 UNIT/ML VIAL SQ SCH (14:00)
[2020-10-11] MEDS ORDERED: Piperacillin/Tazobactam 3.375 GM in 0.9 % Sodium Chloride Mini Bag 100 ML IVPB SCH (16:42)
[2020-10-11] MEDS ORDERED: Acetaminophen 325 MG TABLET PO PRN (17:50)
[2020-10-11 19:00] VITALS: BP 90/51
[2020-10-12] MEDS ORDERED: Aspirin Enteric Coated 81 MG Tablet PO SCH (09:00)
[2020-10-12] MEDS ORDERED: Prenatal Vit/FA 1 EACH TABLET PO SCH (09:00)
[2020-10-12] MEDS ORDERED: cefTRIAXone 1,000 MG in Water for inj. (sterile) 10 ML IVP SCH (09:00)
== END 2020-10-11 20:15 | disposition left against medical advice (07) ==
LOC: 3ANU 07:06 → EMEROOARM 07:06 → 3ANU 12:30
PROVIDERS: ADMIT Internal Medicine; ATTEND Internal Medicine

== ENCOUNTER 2020-12-10 18:27 | Inpatient (IN) ==
[2020-12-10] MEDS ORDERED: Ketorolac 30 MG/ML VIAL IVP ONE (20:59)
[2020-12-10] MEDS ORDERED: 0.9 % Sodium Chloride 1,000 ML IVC ONE (20:59)
[2020-12-10 21:18] LABS: Basophils % 0.1 %; Hematocrit 30.1 % (35.3-44.9); Hemoglobin 9.4 g/dL (11.5-15.4); Lymphocytes # 1.5 K/mcL (0.6-4.6); Lymphocytes % 6.9 %; Mean Corpuscular HGB Conc 31.2 g/dL (31.6-35.5); Mean Corpuscular Hemoglobin 25.5 pg (28.0-33.3); Mean Corpuscular Volume 81.8 fL (83.0-100.0); Mean Platelet Volume 8.9 fL (9.4-12.4); Monocytes # 1.9 K/mcL (0.0-1.3); Monocytes % 8.4 %; Neutrophils # 18.5 K/mcL (1.6-8.9); Platelet Count 564 K/mcL (140-400); Red Blood Count 3.68 M/mcL (3.82-4.97); Red Cell Distribution Width 15.1 % (11.5-14.5); Segmented Neutrophils % 83.6 %; White Blood Count 22.1 K/mcL (4.3-11.1)
[2020-12-10 21:20] LABS: Bacteria,Urine Few per hpf (None-Few); Bilirubin,Urine Negative (Negative); Blood,Urine Small (Negative); Clarity,Urine Turbid (Clear); Color,Urine Light-Yellow (Yellow); Glucose,Urine (UA) >=1000 mg/dL (Normal); Ketones,Urine 100 mg/dL (Negative); Leukocyte Esterase,Urine Large (Negative); Mucus,Urine Few per lpf (None-Few); Nitrite,Urine Negative (Negative); Protein,Urine 100 mg/dL (Neg-Trace); Specific Gravity,Urine 1.016 (1.010-1.025); Squamous Epithelial Cell,Urine Moderate per hpf (None-Few); Urobilinogen,Urine Normal (Normal); WBC,Urine TNTC per hpf (0-3)
[2020-12-10 21:28] LABS: Alanine Aminotransferase 5 Units/L (7-52); Albumin 3.2 g/dL (3.5-5.7); Albumin/Globulin Ratio 0.7 (1.1-2.2); Alkaline Phosphatase 101 Units/L (34-104); Amylase 18 Units/L (29-103); Aspartate Amino Transferase 7 Units/L (13-39); BUN/Creatinine Ratio 10 (6-26); Bilirubin,Indirect 0.4 mg/dL (0.0-1.0); Bilirubin,Total 0.4 mg/dL (0.3-1.0); Blood Urea Nitrogen 6 mg/dL (6-20); Calcium 8.8 mg/dL (8.6-10.3); Carbon Dioxide 18 mEq/L (23-29); Chloride 99 mEq/L (98-107); Globulin 4.5 g/dL (2.4-3.5); Glucose 261 mg/dL (70-105); Lipase < 3 Units/L (11-82); Osmolality,Calculated 281 (280-300); Potassium 3.6 mEq/L (3.5-5.1); Sodium 132 mEq/L (136-145); Total Protein 7.7 g/dL (6.4-8.9); eGFR For African Americans > 60 (> 60); eGFR For Non-African Americans > 60 (> 60)
[2020-12-11] MEDS ORDERED: Isovue-370 500 ML BOTTLE IVP ONE (02:10)
[2020-12-11] MEDS ORDERED: Piperacillin/Tazobactam 3.375 GM in Water for inj. (sterile) 20 ML IVP ONE (04:12)
[2020-12-11] MEDS ORDERED: Ondansetron 4 MG/2 ML VIAL IVP PRN (04:36)
[2020-12-11] MEDS ORDERED: Naloxone 0.4 MG/ML INJ IVP PRN (04:36)
[2020-12-11] MEDS ORDERED: Dextrose Gel 15 GM/37.5 ML TUBE PO PRN ×2 (04:52)
[2020-12-11] MEDS ORDERED: *HR* Dextrose 50 % in Water (Vial) 50 ML VIAL IVP PRN (04:52)
[2020-12-11] MEDS ORDERED: D5% in Water 1,000 ML IVC PRN (04:52)
[2020-12-11] MEDS ORDERED: Insulin DETEMIR 100 UNIT/ML X5UNITS SUBQ SCH ×2 (05:00→22:45)
[2020-12-11] MEDS: 0.9 % Sodium Chloride 1,000 ML IVC SCH ×3 (05:52→20:54)
[2020-12-11] MEDS ORDERED: Insulin LISPRO 300 UNITS/3 ML VIAL SUBQ SCH ×2 (06:00→08:00)
[2020-12-11] MEDS: Insulin LISPRO 300 UNITS/3 ML VIAL SUBQ SCH ×3 (12:43→20:55)
[2020-12-11] MEDS: Sennosides/Docusate Sodium TABLET PO SCH ×2 (12:48→20:17)
[2020-12-11] MEDS: Piperacillin/Tazobactam 3.375 GM in 0.9 % Sodium Chloride Mini Bag 100 ML IVPB SCH ×2 (12:49→20:17)
[2020-12-11 14:28] LABS: Basophils % 0.1 %; Eosinophils % 0.1 %; Hematocrit 29.9 % (35.3-44.9); Hemoglobin 9.2 g/dL (11.5-15.4); Immature Granulocytes % 0.5 % (0-4); Lymphocytes # 1.3 K/mcL (0.6-4.6); Lymphocytes % 8.3 %; Mean Corpuscular HGB Conc 30.8 g/dL (31.6-35.5); Mean Corpuscular Hemoglobin 25.3 pg (28.0-33.3); Mean Corpuscular Volume 82.1 fL (83.0-100.0); Mean Platelet Volume 8.8 fL (9.4-12.4); Monocytes # 1.1 K/mcL (0.0-1.3); Monocytes % 6.6 %; Neutrophils # 13.6 K/mcL (1.6-8.9); Platelet Count 541 K/mcL (140-400); Red Blood Count 3.64 M/mcL (3.82-4.97); Red Cell Distribution Width 15.3 % (11.5-14.5); Segmented Neutrophils % 84.4 %; White Blood Count 16.1 K/mcL (4.3-11.1)
[2020-12-11] MEDS ORDERED: Acetaminophen 325 MG TABLET PO PRN (14:30)
[2020-12-11 14:57] LABS: BUN/Creatinine Ratio 8 (6-26); Blood Urea Nitrogen 5 mg/dL (6-20); C-Reactive Protein 264 mg/L (Less than 10); Calcium 8.2 mg/dL (8.6-10.3); Carbon Dioxide 22 mEq/L (23-29); Chloride 103 mEq/L (98-107); Glucose 117 mg/dL (70-105); Osmolality,Calculated 278 (280-300); Potassium 3.3 mEq/L (3.5-5.1); Sodium 135 mEq/L (136-145); eGFR For African Americans > 60 (> 60); eGFR For Non-African Americans > 60 (> 60)
[2020-12-12] MEDS ORDERED: Insulin LISPRO 300 UNITS/3 ML VIAL SUBQ ONE (03:41)
[2020-12-12] MEDS ORDERED: *HR* HYDROcodone/Acet 5/325 mg TABLET PO ONE (03:42)
[2020-12-12] MEDS: Piperacillin/Tazobactam 3.375 GM in 0.9 % Sodium Chloride Mini Bag 100 ML IVPB SCH ×3 (03:57→19:49)
[2020-12-12] MEDS: 0.9 % Sodium Chloride 1,000 ML IVC SCH ×3 (04:57→22:16)
[2020-12-12 05:21] LABS: Basophils % 0.1 %; Eosinophils % 0.2 %; Hematocrit 27.6 % (35.3-44.9); Hemoglobin 8.6 g/dL (11.5-15.4); Immature Granulocytes % 0.9 % (0-4); Lymphocytes # 1.8 K/mcL (0.6-4.6); Lymphocytes % 8.9 %; Mean Corpuscular HGB Conc 31.2 g/dL (31.6-35.5); Mean Corpuscular Hemoglobin 25.7 pg (28.0-33.3); Mean Corpuscular Volume 82.6 fL (83.0-100.0); Mean Platelet Volume 9.2 fL (9.4-12.4); Monocytes # 1.1 K/mcL (0.0-1.3); Monocytes % 5.6 %; Neutrophils # 16.7 K/mcL (1.6-8.9); Nucleated Red Blood Cells 0.1 /100 WBC (0); Platelet Count 501 K/mcL (140-400); Red Blood Count 3.34 M/mcL (3.82-4.97); Red Cell Distribution Width 15.4 % (11.5-14.5); Segmented Neutrophils % 84.3 %; White Blood Count 19.8 K/mcL (4.3-11.1)
[2020-12-12 05:40] LABS: Alanine Aminotransferase 24 Units/L (7-52); Albumin 2.5 g/dL (3.5-5.7); Albumin/Globulin Ratio 0.7 (1.1-2.2); Alkaline Phosphatase 200 Units/L (34-104); Aspartate Amino Transferase 24 Units/L (13-39); BUN/Creatinine Ratio 12 (6-26); Bilirubin,Total 0.2 mg/dL (0.3-1.0); Blood Urea Nitrogen 7 mg/dL (6-20); Calcium 7.8 mg/dL (8.6-10.3); Carbon Dioxide 20 mEq/L (23-29); Chloride 101 mEq/L (98-107); Globulin 3.6 g/dL (2.4-3.5); Glucose 250 mg/dL (70-105); Osmolality,Calculated 278 (280-300); Potassium 3.6 mEq/L (3.5-5.1); Sodium 131 mEq/L (136-145); Total Protein 6.1 g/dL (6.4-8.9); eGFR For African Americans > 60 (> 60); eGFR For Non-African Americans > 60 (> 60)
[2020-12-12] MEDS: Sennosides/Docusate Sodium TABLET PO SCH ×2 (08:18→19:50)
[2020-12-12] MEDS: Insulin LISPRO 300 UNITS/3 ML VIAL SUBQ SCH ×5 (08:19→23:35)
[2020-12-12] MEDS ORDERED: Acetaminophen IV 1,000 MG/100 ML BAG IVPB ONE (14:52)
[2020-12-12] MEDS: Insulin DETEMIR 100 UNIT/ML X5UNITS SUBQ SCH ×2 (22:17→23:38)
[2020-12-12] MEDS ORDERED: *HR* Promethazine 25 MG/ML VIAL IM ONE (22:52)
[2020-12-12] MEDS: Acetaminophen IV 1,000 MG/100 ML BAG IVPB SCH (23:25)
[2020-12-13] MEDS ORDERED: 0.9 % Sodium Chloride 500 ML IVC ONE ×2 (00:24→02:51)
[2020-12-13] MEDS: Piperacillin/Tazobactam 3.375 GM in 0.9 % Sodium Chloride Mini Bag 100 ML IVPB SCH ×2 (03:44→12:02)
[2020-12-13 05:08] LABS: Basophils % 0.1 %; Eosinophils % 0.1 %; Hematocrit 25.5 % (35.3-44.9); Immature Granulocytes % 1.2 % (0-4); Lymphocytes # 1.5 K/mcL (0.6-4.6); Lymphocytes % 7.6 %; Mean Corpuscular HGB Conc 31.4 g/dL (31.6-35.5); Mean Corpuscular Hemoglobin 25.9 pg (28.0-33.3); Mean Corpuscular Volume 82.5 fL (83.0-100.0); Mean Platelet Volume 9.8 fL (9.4-12.4); Monocytes # 1.4 K/mcL (0.0-1.3); Monocytes % 6.9 %; Neutrophils # 16.4 K/mcL (1.6-8.9); Platelet Count 499 K/mcL (140-400); Red Blood Count 3.09 M/mcL (3.82-4.97); Red Cell Distribution Width 15.3 % (11.5-14.5); Segmented Neutrophils % 84.1 %; White Blood Count 19.4 K/mcL (4.3-11.1)
[2020-12-13 05:28] LABS: BUN/Creatinine Ratio 10 (6-26); Blood Urea Nitrogen 5 mg/dL (6-20); Calcium 7.7 mg/dL (8.6-10.3); Carbon Dioxide 20 mEq/L (23-29); Chloride 105 mEq/L (98-107); Glucose 201 mg/dL (70-105); Osmolality,Calculated 281 (280-300); Potassium 3.6 mEq/L (3.5-5.1); Sodium 134 mEq/L (136-145); eGFR For African Americans > 60 (> 60); eGFR For Non-African Americans > 60 (> 60)
[2020-12-13] MEDS: Acetaminophen IV 1,000 MG/100 ML BAG IVPB SCH ×3 (06:12→17:59)
[2020-12-13] MEDS: 0.9 % Sodium Chloride 1,000 ML IVC SCH ×2 (06:28→16:43)
[2020-12-13] MEDS ORDERED: 0.9 % Sodium Chloride 1,000 ML ONE (07:40)
[2020-12-13] MEDS ORDERED: Prenatal Vit/FA 1 EACH TABLET PO SCH (09:00)
[2020-12-13] MEDS: Insulin LISPRO 300 UNITS/3 ML VIAL SUBQ SCH ×3 (09:26→16:45)
[2020-12-13] MEDS: Sennosides/Docusate Sodium TABLET PO SCH (09:26)
[2020-12-13 15:22] VITALS: BP 108/76
[2020-12-13] MEDS ORDERED: *HR* Propofol 500 MG/50 ML BOTTLE IVP ONE (19:33)
[2020-12-13] MEDS ORDERED: *HR* Propofol 200 MG/20 ML VIAL IVP ONE (19:33)
[2020-12-13] MEDS ORDERED: Lidocaine -MPF 4% 5 ML AMPUL TP ONE (19:33)
[2020-12-13] MEDS ORDERED: Ondansetron 4 MG/2 ML VIAL IVP ONE (19:33)
[2020-12-13] MEDS ORDERED: Lidocaine -MPF 2% 5 ML VIAL SQ ONE (19:33)
[2020-12-13] MEDS ORDERED: Insulin DETEMIR 100 UNIT/ML X5UNITS SUBQ SCH (21:00)
== END 2020-12-13 19:34 | disposition left against medical advice (07) | DRG 566 ==
LOC: EMEROOARM 18:27 → 3ANU 12-11 04:47 → SUATTDRO 12-11 04:47 → 3ANU 12-11 05:13
PROVIDERS: ADMIT Internal Medicine; ATTEND General Practice
PROC: IRDRAIN (2020-12-13 12:00)

== ENCOUNTER 2021-04-18 23:02 | Observation (INO) ==
[2021-04-18 22:27] LABS: VBG HCO3 7 mEq/L (21-27); VBG PCO2 16 mmHg (41-51); VBG PH 7.23 pH Units (7.32-7.42); VBG PO2 106 mmHg (25-50)
[2021-04-18 22:40] LABS: Hematocrit 36.4 % (35.3-44.9); Hemoglobin 11.5 g/dL (11.5-15.4); Mean Corpuscular HGB Conc 31.6 g/dL (31.6-35.5); Mean Corpuscular Hemoglobin 31.2 pg (28.0-33.3); Mean Platelet Volume 8.8 fL (9.4-12.4); Platelet Count 365 K/mcL (140-400); Red Blood Count 3.69 M/mcL (3.82-4.97); Red Cell Distribution Width 13.2 % (11.5-14.5)
[2021-04-18 22:47] LABS: Alanine Aminotransferase 15 Units/L (7-52); Albumin 3.8 g/dL (3.5-5.7); Alkaline Phosphatase 88 Units/L (34-104); Aspartate Amino Transferase 14 Units/L (13-39); BUN/Creatinine Ratio 18 (6-26); Bilirubin,Total 0.5 mg/dL (0.3-1.0); Blood Urea Nitrogen 16 mg/dL (6-20); Calcium 8.8 mg/dL (8.6-10.3); Carbon Dioxide 6 mEq/L (23-29); Chloride 94 mEq/L (98-107); Globulin 3.7 g/dL (2.4-3.5); Glucose 745 mg/dL (70-105); Osmolality,Calculated 299 (280-300); Potassium 4.3 mEq/L (3.5-5.1); Sodium 126 mEq/L (136-145); Total Protein 7.5 g/dL (6.4-8.9); eGFR For African Americans > 60 (> 60); eGFR For Non-African Americans > 60 (> 60)
[2021-04-18 22:50] LABS: Mean Corpuscular Volume 98.6 fL (83.0-100.0); White Blood Count 24.1 K/mcL (4.3-11.1)
[~2021-04-18 23:02] MED LIST changes: +*HR* Dextrose 50 % in Water (Syg) 50 ML SYRINGE IVP PRN; -Acetaminophen 325 MG TABLET PO ONE; +Ondansetron 4 MG/2 ML VIAL IVP ONE
[2021-04-18] MEDS ORDERED: *HR* Dextrose 50 % in Water (Vial) 50 ML VIAL IVP PRN (23:19)
[2021-04-18] MEDS ORDERED: Insulin LISPRO 300 UNITS/3 ML VIAL SUBQ PRN (23:19)
[2021-04-18] MEDS ORDERED: D5% in 0.45% NACL 1,000 ML IVC PRN ×2 (23:19→23:28)
[2021-04-19] MEDS ORDERED: *HR* Promethazine 25 MG/ML VIAL IM PRN (00:12)
[2021-04-19] MEDS ORDERED: Metoclopramide 10 MG/2 ML VIAL IVP ONE (00:13)
[2021-04-19] MEDS: 0.45 % Sodium Chloride w/KCl 20 MEQ/1,000 ML MLS IVC SCH ×2 (00:25→02:43)
[2021-04-19 03:18] LABS: VBG Base Excess -10 mEq/L; VBG Chloride 111 mEq/L (98-107); VBG Glucose 254 mg/dl (65-95); VBG HCO3 14 mEq/L (21-27); VBG Ionized Calcium 1.11 mmol/L (1.15-1.35); VBG Oxygen Saturation 99 %; VBG PCO2 26 mmHg (41-51); VBG PH 7.35 pH Units (7.32-7.42); VBG PO2 140 mmHg (25-50); VBG Total CO2 15 mEq/L
[2021-04-19 03:37] LABS: BUN/Creatinine Ratio 16 (6-26); Blood Urea Nitrogen 13 mg/dL (6-20); Calcium 7.9 mg/dL (8.6-10.3); Carbon Dioxide 14 mEq/L (23-29); Chloride 108 mEq/L (98-107); Glucose 250 mg/dL (70-105); Osmolality,Calculated 283 (280-300); Potassium 4.3 mEq/L (3.5-5.1); Sodium 132 mEq/L (136-145); eGFR For African Americans > 60 (> 60); eGFR For Non-African Americans > 60 (> 60)
[2021-04-19] MEDS: D5% in 0.45% NACL w KCl 20 MEQ/1,000 ML MLS IVC PRN ×2 (04:59→09:41)
[2021-04-19] MEDS ORDERED: Cefepime HCl 1,000 MG in Water for inj. (sterile) 10 ML IVP SCH (06:00)
[2021-04-19 06:09] LABS: Bacteria,Urine Few per hpf (None-Few); Bilirubin,Urine Negative (Negative); Blood,Urine Negative (Negative); Clarity,Urine Turbid (Clear); Color,Urine Light-Yellow (Yellow); Glucose,Urine (UA) >=1000 mg/dL (Normal); Ketones,Urine 80 mg/dL (Negative); Leukocyte Esterase,Urine Large (Negative); Mucus,Urine Few per lpf (None-Few); Nitrite,Urine Negative (Negative); Protein,Urine Trace mg/dL (Neg-Trace); Specific Gravity,Urine 1.017 (1.010-1.025); Squamous Epithelial Cell,Urine Few per hpf (None-Few); Urobilinogen,Urine Normal (Normal); WBC,Urine TNTC per hpf (0-3)
[2021-04-19 06:30] LABS: Amphetamine Screen,Urine Negative ng/mL (Cutoff=1000); Barbiturate Screen,Urine Negative ng/mL (Cutoff=200); Benzodiazepines Screen,Urine Negative ng/mL (Cutoff=300); Cannabinoid Screen,Urine Negative ng/mL (Cutoff = 50); Cocaine Screen,Urine Negative ng/mL (Cutoff= 300); Opiate Screen,Urine Negative ng/mL (Cutoff=300); Phencyclidine Screen,Urine Negative ng/mL (Cutoff=25)
[2021-04-19 06:55] LABS: VBG Base Excess -8 mEq/L; VBG Chloride 110 mEq/L (98-107); VBG Glucose 193 mg/dl (65-95); VBG HCO3 17 mEq/L (21-27); VBG Ionized Calcium 1.12 mmol/L (1.15-1.35); VBG Oxygen Saturation 97 %; VBG PCO2 32 mmHg (41-51); VBG PH 7.33 pH Units (7.32-7.42); VBG PO2 100 mmHg (25-50); VBG Total CO2 18 mEq/L
[2021-04-19 09:23] LABS: BUN/Creatinine Ratio 17 (6-26); Blood Urea Nitrogen 11 mg/dL (6-20); Calcium 7.3 mg/dL (8.6-10.3); Carbon Dioxide 15 mEq/L (23-29); Chloride 111 mEq/L (98-107); Glucose 185 mg/dL (70-105); Osmolality,Calculated 280 (280-300); Potassium 4.4 mEq/L (3.5-5.1); Sodium 133 mEq/L (136-145); eGFR For African Americans > 60 (> 60); eGFR For Non-African Americans > 60 (> 60)
[2021-04-19 11:40] VITALS: BP 99/57
[2021-04-19 12:43] LABS: Estimated Average Glucose 286 mg/dl; Hemoglobin A1C 11.6 %
[2021-04-19 12:44] LABS: BUN/Creatinine Ratio 14 (6-26); Blood Urea Nitrogen 7 mg/dL (6-20); Calcium 7.4 mg/dL (8.6-10.3); Carbon Dioxide 16 mEq/L (23-29); Chloride 113 mEq/L (98-107); Glucose 102 mg/dL (70-105); Osmolality,Calculated 276 (280-300); Sodium 134 mEq/L (136-145); eGFR For African Americans > 60 (> 60); eGFR For Non-African Americans > 60 (> 60)
== END 2021-04-19 13:40 | disposition other institution (70) ==
LOC: 1NENULAB → 2NNU 23:02
PROVIDERS: ADMIT Student in an Organized Health Care Education/Training Program; ATTEND Student in an Organized Health Care Education/Training Program

== ENCOUNTER 2021-09-16 14:52 | Inpatient (IN) ==
[2021-09-16] MEDS ORDERED: Ondansetron 4 MG/2 ML VIAL IVP ONE (15:31)
[2021-09-16] MEDS ORDERED: Isovue-370 500 ML BOTTLE IVP ONE (15:37)
[2021-09-16] MEDS: 0.9 % Sodium Chloride 1,000 ML IVC SCH ×2 (15:52→18:04)
[2021-09-16 15:57] LABS: Basophils % 0.2 %; Immature Granulocytes % 1.1 % (0-4); Lymphocytes # 1.6 K/mcL (0.6-4.6); Lymphocytes % 8.1 %; Mean Corpuscular Hemoglobin 25.1 pg (28.0-33.3); Mean Corpuscular Volume 81.2 fL (83.0-100.0); Mean Platelet Volume 9.2 fL (9.4-12.4); Monocytes # 1.2 K/mcL (0.0-1.3); Monocytes % 6.1 %; Neutrophils # 16.4 K/mcL (1.6-8.9); Platelet Count 618 K/mcL (140-400); Red Blood Count 5.17 M/mcL (3.82-4.97); Red Cell Distribution Width 15.2 % (11.5-14.5); Segmented Neutrophils % 84.5 %; White Blood Count 19.4 K/mcL (4.3-11.1)
[2021-09-16 15:59] LABS: VBG HCO3 12 mEq/L (21-27); VBG PCO2 30 mmHg (41-51); VBG PH 7.22 pH Units (7.32-7.42); VBG PO2 89 mmHg (25-50)
[2021-09-16 16:23] LABS: Alanine Aminotransferase 13 Units/L (7-52); Albumin 4.5 g/dL (3.5-5.7); Alkaline Phosphatase 135 Units/L (34-104); Aspartate Amino Transferase 15 Units/L (13-39); BUN/Creatinine Ratio 23 (6-26); Bilirubin,Total 0.4 mg/dL (0.3-1.0); Blood Urea Nitrogen 35 mg/dL (6-20); Calcium 10.2 mg/dL (8.6-10.3); Carbon Dioxide 11 mEq/L (23-29); Chloride 97 mEq/L (98-107); Globulin 4.5 g/dL (2.4-3.5); Glucose 290 mg/dL (70-105); Magnesium 1.9 mg/dL (1.6-2.6); Osmolality,Calculated 295 (280-300); Potassium 3.6 mEq/L (3.5-5.1); Sodium 133 mEq/L (136-145); Troponin I < 0.03 ng/mL (< 0.04); eGFR For African Americans 53 (> 60); eGFR For Non-African Americans 43 (> 60)
[2021-09-16] MEDS ORDERED: *HR* Dextrose 50 % in Water (Syg) 50 ML SYRINGE IVP PRN ×3 (16:52→23:01)
[2021-09-16 17:53] LABS: Bacteria,Urine Few per hpf (None-Few); Bilirubin,Urine Negative (Negative); Blood,Urine Trace (Negative); Clarity,Urine Clear (Clear); Color,Urine Light-Yellow (Yellow); Glucose,Urine (UA) >=1000 mg/dL (Normal); Hyaline Casts,Urine Moderate per lpf (None Seen); Ketones,Urine 80 mg/dL (Negative); Leukocyte Esterase,Urine Trace (Negative); Mucus,Urine Few per lpf (None-Few); Nitrite,Urine Negative (Negative); Protein,Urine 30 mg/dL (Neg-Trace); RBC,Urine 0-3 per hpf (0-3); Specific Gravity,Urine 1.018 (1.010-1.025); Squamous Epithelial Cell,Urine Few per hpf (None-Few); Urobilinogen,Urine Normal (Normal)
[2021-09-16 17:55] LABS: Influenza A PCR Negative (Negative); Influenza B PCR Negative (Negative); Resp. Syncytial Virus PCR Negative (Negative)
[2021-09-16 18:02] LABS: SARS-CoV-2 by PCR (In House) Negative (Negative)
[2021-09-16] MEDS ORDERED: cefTRIAXone 1,000 MG in Water for inj. (sterile) 10 ML IVP ONE (18:28)
[2021-09-16] MEDS ORDERED: Metoclopramide 10 MG/2 ML VIAL IVP ONE (18:30)
[2021-09-16] MEDS ORDERED: D5% in 0.9% NACL 1,000 ML IVC SCH (20:30)
[2021-09-16 21:27] LABS: BUN/Creatinine Ratio 28 (6-26); Blood Urea Nitrogen 25 mg/dL (6-20); Calcium 8.6 mg/dL (8.6-10.3); Carbon Dioxide 17 mEq/L (23-29); Chloride 103 mEq/L (98-107); Glucose 171 mg/dL (70-105); Osmolality,Calculated 288 (280-300); Potassium 3.9 mEq/L (3.5-5.1); Sodium 135 mEq/L (136-145); eGFR For African Americans > 60 (> 60); eGFR For Non-African Americans > 60 (> 60)
[2021-09-16] MEDS ORDERED: Insulin Regular, Human 100 UNIT/ML IV PRN ×2 (22:22→23:01)
[2021-09-16] MEDS ORDERED: D5% in 0.45% NACL w KCl 20 MEQ/1,000 ML MLS IVC PRN (22:22)
[2021-09-16] MEDS ORDERED: D5% in 0.45% NACL 1,000 ML IVC PRN (22:22)
[2021-09-16] MEDS ORDERED: Ondansetron ODT 4 MG TAB.RAPDIS SL PRN (22:34)
[2021-09-16] MEDS ORDERED: Naloxone 0.4 MG/ML INJ IVP PRN (22:34)
[2021-09-17] MEDS ORDERED: *HR* Promethazine 25 MG/ML VIAL IM ONE (00:03)
[2021-09-17] MEDS ORDERED: Dextrose Gel 15 GM/37.5 ML TUBE PO PRN ×4 (00:03→17:55)
[2021-09-17] MEDS ORDERED: D5% in Water 1,000 ML IVC PRN ×2 (00:03→17:55)
[2021-09-17] MEDS ORDERED: *HR* Promethazine 25 MG/ML VIAL IM PRN (00:06)
[2021-09-17] MEDS: D5% in 0.45% NACL w KCl 20 MEQ/1,000 ML MLS IVC SCH ×3 (00:23→08:29)
[2021-09-17 01:41] LABS: VBG HCO3 16 mEq/L (21-27); VBG PCO2 34 mmHg (41-51); VBG PH 7.28 pH Units (7.32-7.42); VBG PO2 164 mmHg (25-50)
[2021-09-17 02:13] LABS: BUN/Creatinine Ratio 24 (6-26); Blood Urea Nitrogen 20 mg/dL (6-20); Calcium 8.8 mg/dL (8.6-10.3); Carbon Dioxide 13 mEq/L (23-29); Chloride 105 mEq/L (98-107); Glucose 221 mg/dL (70-105); Magnesium 1.7 mg/dL (1.6-2.6); Osmolality,Calculated 291 (280-300); Phosphorous 3.7 mg/dL (2.7-4.5); Potassium 4.3 mEq/L (3.5-5.1); Sodium 136 mEq/L (136-145); eGFR For African Americans > 60 (> 60); eGFR For Non-African Americans > 60 (> 60)
[2021-09-17] MEDS ORDERED: Ipratropium/Albuterol Neb 3 ML IH PRN (02:56)
[2021-09-17 05:34] LABS: VBG HCO3 19 mEq/L (21-27); VBG PCO2 39 mmHg (41-51); VBG PH 7.31 pH Units (7.32-7.42); VBG PO2 41 mmHg (25-50)
[2021-09-17 05:51] LABS: Estimated Average Glucose 301 mg/dl; Hemoglobin A1C 12.1 %
[2021-09-17 05:59] LABS: BUN/Creatinine Ratio 19 (6-26); Blood Urea Nitrogen 15 mg/dL (6-20); Calcium 8.8 mg/dL (8.6-10.3); Carbon Dioxide 19 mEq/L (23-29); Chloride 105 mEq/L (98-107); Glucose 214 mg/dL (70-105); Osmolality,Calculated 287 (280-300); Potassium 3.7 mEq/L (3.5-5.1); Sodium 135 mEq/L (136-145); eGFR For African Americans > 60 (> 60); eGFR For Non-African Americans > 60 (> 60)
[2021-09-17 06:02] LABS: Alanine Aminotransferase 11 Units/L (7-52); Albumin/Globulin Ratio 1.1 (1.1-2.2); Alkaline Phosphatase 112 Units/L (34-104); Aspartate Amino Transferase 12 Units/L (13-39); BUN/Creatinine Ratio 19 (6-26); Bilirubin,Total 0.3 mg/dL (0.3-1.0); Blood Urea Nitrogen 15 mg/dL (6-20); Calcium 8.7 mg/dL (8.6-10.3); Carbon Dioxide 19 mEq/L (23-29); Chloride 105 mEq/L (98-107); Globulin 3.7 g/dL (2.4-3.5); Glucose 215 mg/dL (70-105); Magnesium 2.5 mg/dL (1.6-2.6); Osmolality,Calculated 289 (280-300); Phosphorous 2.2 mg/dL (2.7-4.5); Potassium 3.6 mEq/L (3.5-5.1); Sodium 136 mEq/L (136-145); Total Protein 7.7 g/dL (6.4-8.9); eGFR For African Americans > 60 (> 60); eGFR For Non-African Americans > 60 (> 60)
[2021-09-17] MEDS: cefTRIAXone 2,000 MG in Water for inj. (sterile) 10 ML IVP SCH (08:29)
[2021-09-17] MEDS ORDERED: cefTRIAXone 1,000 MG in Water for inj. (sterile) 10 ML IVP SCH (09:00)
[2021-09-17] MEDS ORDERED: Isovue-370 500 ML BOTTLE IVP ONE (09:01)
[2021-09-17] MEDS: Ondansetron ODT 4 MG TAB.RAPDIS SL PRN ×3 (09:41→17:48)
[2021-09-17 10:19] LABS: BUN/Creatinine Ratio 15 (6-26); Blood Urea Nitrogen 10 mg/dL (6-20); Calcium 8.3 mg/dL (8.6-10.3); Carbon Dioxide 18 mEq/L (23-29); Chloride 107 mEq/L (98-107); Glucose 100 mg/dL (70-105); Osmolality,Calculated 277 (280-300); Potassium 3.8 mEq/L (3.5-5.1); Sodium 134 mEq/L (136-145); eGFR For African Americans > 60 (> 60); eGFR For Non-African Americans > 60 (> 60)
[2021-09-17] MEDS: *HR* Promethazine 25 MG/ML VIAL IM PRN ×2 (11:47→20:43)
[2021-09-17] MEDS ORDERED: Heparin 25,000UNIT/250ML 1/2NS 25,000 UNIT/250 ML IV.SOLN IVC SCH (12:30)
[2021-09-17] MEDS ORDERED: *HR* Heparin 5,000 UNIT/ML VIAL IVP ONE (12:30)
[2021-09-17] MEDS ORDERED: *HR* Heparin 5,000 UNIT/ML VIAL IVP PRN ×2 (12:30)
[2021-09-17] MEDS ORDERED: Perflutren Lipid Microsphere 1.3 ML in 0.9 % Sodium Chloride 8.7 ML IVP PRN (12:31)
[2021-09-17 13:56] LABS: Hematocrit 33.9 % (35.3-44.9); Hemoglobin 10.7 g/dL (11.5-15.4); Mean Corpuscular HGB Conc 31.6 g/dL (31.6-35.5); Mean Corpuscular Hemoglobin 25.1 pg (28.0-33.3); Mean Corpuscular Volume 79.6 fL (83.0-100.0); Mean Platelet Volume 9.2 fL (9.4-12.4); Platelet Count 330 K/mcL (140-400); Red Blood Count 4.26 M/mcL (3.82-4.97); Red Cell Distribution Width 15.5 % (11.5-14.5)
[2021-09-17 13:56] LABS: VBG HCO3 19 mEq/L (21-27); VBG PCO2 35 mmHg (41-51); VBG PH 7.36 pH Units (7.32-7.42); VBG PO2 170 mmHg (25-50)
[2021-09-17] MEDS: Lactobacillus 1 EACH CAP.SPRINK PO SCH ×2 (13:57→20:46)
[2021-09-17 14:37] LABS: BUN/Creatinine Ratio 13 (6-26); Blood Urea Nitrogen 8 mg/dL (6-20); Calcium 8.3 mg/dL (8.6-10.3); Carbon Dioxide 19 mEq/L (23-29); Chloride 106 mEq/L (98-107); Glucose 146 mg/dL (70-105); Osmolality,Calculated 281 (280-300); Potassium 4.1 mEq/L (3.5-5.1); Sodium 135 mEq/L (136-145); eGFR For African Americans > 60 (> 60); eGFR For Non-African Americans > 60 (> 60)
[2021-09-17 15:20] LABS: Amphetamine Screen,Urine Negative ng/mL (Cutoff=1000); Barbiturate Screen,Urine Negative ng/mL (Cutoff=200); Benzodiazepines Screen,Urine Negative ng/mL (Cutoff=200); Cannabinoid Screen,Urine Negative ng/mL (Cutoff = 50); Cocaine Screen,Urine Negative ng/mL (Cutoff= 300); Opiate Screen,Urine Negative ng/mL (Cutoff=300); Phencyclidine Screen,Urine Negative ng/mL (Cutoff=25)
[2021-09-17] MEDS ORDERED: D5% in 0.45% NACL w KCl 20 MEQ/1,000 ML MLS IVC SCH (15:30)
[2021-09-17] MEDS: Insulin DETEMIR 100 UNIT/ML X5UNITS SUBQ SCH ×2 (15:50→20:47)
[2021-09-17] MEDS: Apixaban 5 MG TABLET PO SCH (17:46)
[2021-09-17 17:54] LABS: VBG HCO3 18 mEq/L (21-27); VBG PCO2 25 mmHg (41-51); VBG PH 7.46 pH Units (7.32-7.42); VBG PO2 113 mmHg (25-50)
[2021-09-17] MEDS ORDERED: *HR* Dextrose 50 % in Water (Syg) 50 ML SYRINGE IVP PRN (17:55)
[2021-09-17 18:06] LABS: BUN/Creatinine Ratio 10 (6-26); Blood Urea Nitrogen 7 mg/dL (6-20); Calcium 8.5 mg/dL (8.6-10.3); Carbon Dioxide 16 mEq/L (23-29); Chloride 106 mEq/L (98-107); Glucose 191 mg/dL (70-105); Osmolality,Calculated 283 (280-300); Potassium 3.6 mEq/L (3.5-5.1); Sodium 135 mEq/L (136-145); eGFR For African Americans > 60 (> 60); eGFR For Non-African Americans > 60 (> 60)
[2021-09-17 18:27] LABS: Basophils % 0.1 %; Immature Granulocytes % 0.4 % (0-4); Lymphocytes # 1.3 K/mcL (0.6-4.6); Lymphocytes % 6.3 %; Monocytes # 1.3 K/mcL (0.0-1.3); Monocytes % 6.2 %; Neutrophils # 18.4 K/mcL (1.6-8.9)
[2021-09-17 18:45] LABS: Large Platelets Present (Not Present)
[2021-09-17] MEDS: Divalproex (24 HR) 500 MG TABLET PO SCH (20:46)
[2021-09-17] MEDS: Insulin LISPRO 300 UNITS/3 ML VIAL SUBQ SCH (20:47)
[2021-09-17] MEDS ORDERED: Apixaban 5 MG TABLET PO SCH (21:00)
[2021-09-17] MEDS ORDERED: Insulin DETEMIR 100 UNIT/ML X5UNITS SUBQ SCH (21:00)
[2021-09-18 05:14] LABS: Hematocrit 33.9 % (35.3-44.9); Hemoglobin 10.9 g/dL (11.5-15.4); Mean Corpuscular HGB Conc 32.2 g/dL (31.6-35.5); Mean Corpuscular Hemoglobin 25.5 pg (28.0-33.3); Mean Corpuscular Volume 79.4 fL (83.0-100.0); Platelet Count 313 K/mcL (140-400); Red Blood Count 4.27 M/mcL (3.82-4.97); Red Cell Distribution Width 15.8 % (11.5-14.5); White Blood Count 12.8 K/mcL (4.3-11.1)
[2021-09-18 05:27] LABS: BUN/Creatinine Ratio 11 (6-26); Blood Urea Nitrogen 7 mg/dL (6-20); Calcium 8.7 mg/dL (8.6-10.3); Carbon Dioxide 22 mEq/L (23-29); Chloride 106 mEq/L (98-107); Glucose 90 mg/dL (70-105); Osmolality,Calculated 280 (280-300); Potassium 3.2 mEq/L (3.5-5.1); Sodium 136 mEq/L (136-145); eGFR For African Americans > 60 (> 60); eGFR For Non-African Americans > 60 (> 60)
[2021-09-18] MEDS ORDERED: *HR* Metoprolol 5 MG/5 ML VIAL IVP ONE (06:35)
[2021-09-18] MEDS: Insulin LISPRO 300 UNITS/3 ML VIAL SUBQ SCH ×4 (08:13→20:52)
[2021-09-18] MEDS: Apixaban 5 MG TABLET PO SCH ×2 (08:29→20:52)
[2021-09-18] MEDS: Lactobacillus 1 EACH CAP.SPRINK PO SCH ×2 (08:29→20:53)
[2021-09-18] MEDS: cefTRIAXone 2,000 MG in Water for inj. (sterile) 10 ML IVP SCH (09:48)
[2021-09-18] MEDS: Ondansetron ODT 4 MG TAB.RAPDIS SL PRN (10:08)
[2021-09-18] MEDS: Insulin DETEMIR 100 UNIT/ML X5UNITS SUBQ SCH ×2 (10:08→20:53)
[2021-09-18 14:47] LABS: BUN/Creatinine Ratio 17 (6-26); Blood Urea Nitrogen 12 mg/dL (6-20); Calcium 8.6 mg/dL (8.6-10.3); Carbon Dioxide 22 mEq/L (23-29); Chloride 104 mEq/L (98-107); Glucose 166 mg/dL (70-105); Osmolality,Calculated 284 (280-300); Potassium 3.5 mEq/L (3.5-5.1); Sodium 135 mEq/L (136-145); eGFR For African Americans > 60 (> 60); eGFR For Non-African Americans > 60 (> 60)
[2021-09-18] MEDS: Divalproex (24 HR) 500 MG TABLET PO SCH (20:52)
[2021-09-19 03:37] LABS: Hematocrit 32.2 % (35.3-44.9); Hemoglobin 9.9 g/dL (11.5-15.4); Mean Corpuscular HGB Conc 30.7 g/dL (31.6-35.5); Mean Corpuscular Hemoglobin 24.9 pg (28.0-33.3); Mean Corpuscular Volume 80.9 fL (83.0-100.0); Mean Platelet Volume 9.2 fL (9.4-12.4); Platelet Count 256 K/mcL (140-400); Red Blood Count 3.98 M/mcL (3.82-4.97); Red Cell Distribution Width 15.7 % (11.5-14.5); White Blood Count 9.8 K/mcL (4.3-11.1)
[2021-09-19 03:57] LABS: BUN/Creatinine Ratio 32 (6-26); Blood Urea Nitrogen 20 mg/dL (6-20); Calcium 8.9 mg/dL (8.6-10.3); Carbon Dioxide 24 mEq/L (23-29); Chloride 104 mEq/L (98-107); Glucose 253 mg/dL (70-105); Osmolality,Calculated 293 (280-300); Potassium 3.9 mEq/L (3.5-5.1); Sodium 136 mEq/L (136-145); eGFR For African Americans > 60 (> 60); eGFR For Non-African Americans > 60 (> 60)
[2021-09-19] MEDS: Lactobacillus 1 EACH CAP.SPRINK PO SCH (09:42)
[2021-09-19] MEDS: cefTRIAXone 2,000 MG in Water for inj. (sterile) 10 ML IVP SCH (09:43)
[2021-09-19] MEDS: Insulin DETEMIR 100 UNIT/ML X5UNITS SUBQ SCH (09:44)
[2021-09-19] MEDS: Apixaban 5 MG TABLET PO SCH (09:45)
[2021-09-19] MEDS: Insulin LISPRO 300 UNITS/3 ML VIAL SUBQ SCH ×2 (09:59→12:51)
[2021-09-19 12:32] VITALS: BP 138/89; PULSE 83; TEMP 98.4; O2SAT 99
== END 2021-09-19 13:39 | disposition home or self-care (01) | DRG 720 ==
LOC: SUATTDRO → 3NENU 14:52 → EMEROOARM 14:52 → SUATTDRO 21:58 → 3NENU 09-17 00:26 → SUATTDRO 09-17 15:00 → 2ANU 09-18 13:50
PROVIDERS: ADMIT Internal Medicine; ATTEND Family Medicine

== ENCOUNTER 2021-09-28 14:42 | Observation (INO) ==
[2021-09-28 15:56] LABS: Basophils % 0.3 %; Eosinophils # 0.1 K/mcL (0.0-0.6); Eosinophils % 0.5 %; Hematocrit 38.1 % (35.3-44.9); Hemoglobin 11.8 g/dL (11.5-15.4); Immature Granulocytes % 0.8 % (0-4); Lymphocytes # 2.1 K/mcL (0.6-4.6); Lymphocytes % 14.6 %; Mean Corpuscular Hemoglobin 25.4 pg (28.0-33.3); Mean Corpuscular Volume 81.9 fL (83.0-100.0); Mean Platelet Volume 9.1 fL (9.4-12.4); Monocytes # 0.8 K/mcL (0.0-1.3); Monocytes % 5.3 %; Neutrophils # 11.3 K/mcL (1.6-8.9); Platelet Count 545 K/mcL (140-400); Red Blood Count 4.65 M/mcL (3.82-4.97); Red Cell Distribution Width 16.9 % (11.5-14.5); Segmented Neutrophils % 78.5 %; White Blood Count 14.4 K/mcL (4.3-11.1)
[2021-09-28] MEDS ORDERED: Ondansetron 4 MG/2 ML VIAL IVP ONE (16:00)
[2021-09-28] MEDS: 0.9 % Sodium Chloride 1,000 ML IVC SCH ×4 (16:06→20:31)
[2021-09-28 16:21] LABS: VBG HCO3 8 mEq/L (21-27); VBG PCO2 23 mmHg (41-51); VBG PH 7.17 pH Units (7.32-7.42); VBG PO2 47 mmHg (25-50)
[2021-09-28 16:26] LABS: Alanine Aminotransferase 10 Units/L (7-52); Albumin 4.2 g/dL (3.5-5.7); Albumin/Globulin Ratio 1.1 (1.1-2.2); Alkaline Phosphatase 112 Units/L (34-104); Aspartate Amino Transferase 10 Units/L (13-39); BUN/Creatinine Ratio 21 (6-26); Bilirubin,Total 0.3 mg/dL (0.3-1.0); Blood Urea Nitrogen 21 mg/dL (6-20); Calcium 9.3 mg/dL (8.6-10.3); Carbon Dioxide 8 mEq/L (23-29); Chloride 92 mEq/L (98-107); Glucose 631 mg/dL (70-105); Magnesium 2.1 mg/dL (1.6-2.6); Osmolality,Calculated 293 (280-300); Phosphorous 4.6 mg/dL (2.7-4.5); Potassium 4.8 mEq/L (3.5-5.1); Sodium 125 mEq/L (136-145); Total Protein 8.2 g/dL (6.4-8.9); Troponin I < 0.03 ng/mL (< 0.04); eGFR For African Americans > 60 (> 60); eGFR For Non-African Americans > 60 (> 60)
[2021-09-28 17:03] LABS: Estimated Average Glucose 338 mg/dl; Hemoglobin A1C 13.4 %
[2021-09-28] MEDS ORDERED: *HR* Dextrose 50 % in Water (Syg) 50 ML SYRINGE IVP PRN (17:27)
[2021-09-28] MEDS ORDERED: Naloxone 0.4 MG/ML INJ IVP PRN (17:27)
[2021-09-28] MEDS ORDERED: Insulin Regular, Human 100 UNIT/ML IV ONE (17:27)
[2021-09-28] MEDS ORDERED: D5% in 0.45% NACL 1,000 ML IVC PRN (17:27)
[2021-09-28] MEDS ORDERED: Insulin Human Regular 10 UNIT in 0.9 % Sodium Chloride 10 ML IV ONE (17:48)
[2021-09-28] MEDS: 0.9 % Sodium Chloride w KCl 20 MEQ/1,000 ML MLS IVC SCH ×2 (18:26→20:31)
[2021-09-28] MEDS: Ondansetron 4 MG/2 ML VIAL IVP PRN (18:45)
[2021-09-28] MEDS: D5% in 0.45% NACL w KCl 20 MEQ/1,000 ML MLS IVC PRN ×2 (19:13→23:22)
[2021-09-28] MEDS: 0.45 % Sodium Chloride w/KCl 20 MEQ/1,000 ML MLS IVC SCH ×2 (20:29→20:31)
[2021-09-28 20:39] LABS: BUN/Creatinine Ratio 24 (6-26); Blood Urea Nitrogen 18 mg/dL (6-20); Calcium 8.5 mg/dL (8.6-10.3); Carbon Dioxide 11 mEq/L (23-29); Chloride 108 mEq/L (98-107); Glucose 174 mg/dL (70-105); Osmolality,Calculated 288 (280-300); Potassium 3.3 mEq/L (3.5-5.1); Sodium 136 mEq/L (136-145); eGFR For African Americans > 60 (> 60); eGFR For Non-African Americans > 60 (> 60)
[2021-09-28] MEDS: Divalproex (24 HR) 500 MG TABLET PO SCH (20:50)
[2021-09-28] MEDS: Apixaban 5 MG TABLET PO SCH (20:50)
[2021-09-28] MEDS ORDERED: NON-FORMULARY MEDICATION 1 EACH EACH (Insulin Glargine,Hum.Rec.Anlog [Lantus Solostar] 100 SQ SCH (21:00)
[2021-09-28 22:59] LABS: BUN/Creatinine Ratio 23 (6-26); Blood Urea Nitrogen 15 mg/dL (6-20); Calcium 8.1 mg/dL (8.6-10.3); Carbon Dioxide 14 mEq/L (23-29); Chloride 109 mEq/L (98-107); Glucose 205 mg/dL (70-105); Osmolality,Calculated 283 (280-300); Potassium 3.6 mEq/L (3.5-5.1); Sodium 133 mEq/L (136-145); eGFR For African Americans > 60 (> 60); eGFR For Non-African Americans > 60 (> 60)
[2021-09-29 01:56] LABS: VBG HCO3 15 mEq/L (21-27); VBG PCO2 31 mmHg (41-51); VBG PH 7.28 pH Units (7.32-7.42); VBG PO2 114 mmHg (25-50)
[2021-09-29 01:58] LABS: Basophils % 0.4 %; Eosinophils # 0.2 K/mcL (0.0-0.6); Eosinophils % 1.7 %; Hematocrit 30.6 % (35.3-44.9); Immature Granulocytes % 0.8 % (0-4); Lymphocytes # 2.5 K/mcL (0.6-4.6); Lymphocytes % 24.5 %; Mean Corpuscular Hemoglobin 26.2 pg (28.0-33.3); Mean Corpuscular Volume 79.5 fL (83.0-100.0); Mean Platelet Volume 8.7 fL (9.4-12.4); Monocytes # 1.1 K/mcL (0.0-1.3); Monocytes % 10.3 %; Neutrophils # 6.4 K/mcL (1.6-8.9); Platelet Count 454 K/mcL (140-400); Red Blood Count 3.85 M/mcL (3.82-4.97); Red Cell Distribution Width 16.4 % (11.5-14.5); Segmented Neutrophils % 62.3 %; White Blood Count 10.3 K/mcL (4.3-11.1)
[2021-09-29 02:02] LABS: Hemoglobin 10.1 g/dL (11.5-15.4)
[2021-09-29 02:16] LABS: Magnesium 1.7 mg/dL (1.6-2.6); Phosphorous 2.8 mg/dL (2.7-4.5)
[2021-09-29 02:34] LABS: BUN/Creatinine Ratio 23 (6-26); Blood Urea Nitrogen 13 mg/dL (6-20); Calcium 8.2 mg/dL (8.6-10.3); Carbon Dioxide 14 mEq/L (23-29); Chloride 111 mEq/L (98-107); Glucose 95 mg/dL (70-105); Osmolality,Calculated 276 (280-300); Potassium 4.1 mEq/L (3.5-5.1); Sodium 133 mEq/L (136-145); eGFR For African Americans > 60 (> 60); eGFR For Non-African Americans > 60 (> 60)
[2021-09-29] MEDS: D5% in 0.45% NACL w KCl 20 MEQ/1,000 ML MLS IVC PRN (03:26)
[2021-09-29] MEDS: Ondansetron 4 MG/2 ML VIAL IVP PRN ×2 (03:30→20:49)
[2021-09-29] MEDS: 0.9 % Sodium Chloride 1,000 ML IVC SCH ×2 (06:07→08:07)
[2021-09-29] MEDS: 0.9 % Sodium Chloride w KCl 20 MEQ/1,000 ML MLS IVC SCH ×2 (06:08→08:07)
[2021-09-29] MEDS: 0.45 % Sodium Chloride w/KCl 20 MEQ/1,000 ML MLS IVC SCH ×2 (06:08→08:07)
[2021-09-29 06:39] LABS: BUN/Creatinine Ratio 18 (6-26); Blood Urea Nitrogen 10 mg/dL (6-20); Carbon Dioxide 15 mEq/L (23-29); Chloride 110 mEq/L (98-107); Glucose 164 mg/dL (70-105); Osmolality,Calculated 279 (280-300); Potassium 3.8 mEq/L (3.5-5.1); Sodium 133 mEq/L (136-145); eGFR For African Americans > 60 (> 60); eGFR For Non-African Americans > 60 (> 60)
[2021-09-29] MEDS ORDERED: D5% in Water 1,000 ML IVC PRN (07:15)
[2021-09-29] MEDS ORDERED: Dextrose Gel 15 GM/37.5 ML TUBE PO PRN ×2 (07:15)
[2021-09-29] MEDS ORDERED: *HR* Dextrose 50 % in Water (Syg) 50 ML SYRINGE IVP PRN (07:15)
[2021-09-29] MEDS: Insulin LISPRO 300 UNITS/3 ML VIAL SUBQ SCH ×3 (08:14→16:40)
[2021-09-29] MEDS: Apixaban 5 MG TABLET PO SCH ×2 (08:22→20:52)
[2021-09-29] MEDS: Ondansetron ODT 4 MG TAB.RAPDIS PO SCH (08:22)
[2021-09-29] MEDS: Insulin DETEMIR 100 UNIT/ML X5UNITS SUBQ SCH ×2 (08:23→22:04)
[2021-09-29] MEDS: INSULIN PUMP CARTRIDGE SQ SCH (08:24)
[2021-09-29 09:22] LABS: BUN/Creatinine Ratio 14 (6-26); Blood Urea Nitrogen 8 mg/dL (6-20); Calcium 8.3 mg/dL (8.6-10.3); Carbon Dioxide 16 mEq/L (23-29); Chloride 109 mEq/L (98-107); Glucose 123 mg/dL (70-105); Osmolality,Calculated 276 (280-300); Potassium 3.8 mEq/L (3.5-5.1); Sodium 133 mEq/L (136-145); eGFR For African Americans > 60 (> 60); eGFR For Non-African Americans > 60 (> 60)
[2021-09-29] MEDS ORDERED: Acetaminophen/Aspirin/Caffeine TABLET PO PRN (09:58)
[2021-09-29] MEDS ORDERED: Ketorolac 30 MG/ML VIAL IVP ONE (11:46)
[2021-09-29] MEDS ORDERED: Fluconazole 100 MG TABLET PO ONE (15:30)
[2021-09-29] MEDS: Divalproex (24 HR) 500 MG TABLET PO SCH (20:52)
[2021-09-30 04:31] VITALS: O2SAT 99
[2021-09-30 06:54] LABS: BUN/Creatinine Ratio 17 (6-26); Blood Urea Nitrogen 9 mg/dL (6-20); Calcium 8.9 mg/dL (8.6-10.3); Carbon Dioxide 25 mEq/L (23-29); Chloride 106 mEq/L (98-107); Glucose 137 mg/dL (70-105); Osmolality,Calculated 283 (280-300); Potassium 3.9 mEq/L (3.5-5.1); Sodium 136 mEq/L (136-145); eGFR For African Americans > 60 (> 60); eGFR For Non-African Americans > 60 (> 60)
[2021-09-30 07:58] VITALS: BP 127/83; PULSE 78; TEMP 98
[2021-09-30] MEDS: Insulin LISPRO 300 UNITS/3 ML VIAL SUBQ SCH (08:13)
[2021-09-30] MEDS: Ondansetron ODT 4 MG TAB.RAPDIS PO SCH (08:14)
[2021-09-30] MEDS: Apixaban 5 MG TABLET PO SCH (08:15)
[2021-09-30] MEDS: Insulin DETEMIR 100 UNIT/ML X5UNITS SUBQ SCH (08:27)
[2021-09-30] MEDS: INSULIN PUMP CARTRIDGE SQ SCH (08:59)
== END 2021-09-30 10:36 | disposition home or self-care (01) ==
LOC: EMEROOARM 14:42 → 2NNU 14:42 → SUATTDRO 17:37 → 2NNU 18:05 → 3BNU 09-29 09:22
PROVIDERS: ADMIT Family Medicine; ATTEND Internal Medicine

== ENCOUNTER 2021-11-27 16:16 | Observation (INO) ==
[2021-11-27 19:52] LABS: Basophils % 0.1 %; Eosinophils # 0.1 K/mcL (0.0-0.6); Eosinophils % 0.8 %; Hematocrit 41.5 % (35.3-44.9); Immature Granulocytes % 0.3 % (0-4); Lymphocytes # 1.9 K/mcL (0.6-4.6); Lymphocytes % 25.9 %; Mean Corpuscular HGB Conc 31.3 g/dL (31.6-35.5); Mean Corpuscular Hemoglobin 26.5 pg (28.0-33.3); Mean Corpuscular Volume 84.5 fL (83.0-100.0); Mean Platelet Volume 9.9 fL (9.4-12.4); Monocytes # 0.5 K/mcL (0.0-1.3); Monocytes % 6.9 %; Neutrophils # 4.8 K/mcL (1.6-8.9); Platelet Count 310 K/mcL (140-400); Red Blood Count 4.91 M/mcL (3.82-4.97); White Blood Count 7.2 K/mcL (4.3-11.1)
[2021-11-27 19:57] LABS: VBG HCO3 13 mEq/L (21-27); VBG PCO2 33 mmHg (41-51); VBG PH 7.19 pH Units (7.32-7.42); VBG PO2 37 mmHg (25-50)
[2021-11-27] MEDS ORDERED: 0.9 % Sodium Chloride 2,000 ML IV ONE (19:59)
[2021-11-27 20:15] LABS: Bacteria,Urine Few per hpf (None-Few); Bilirubin,Urine Negative (Negative); Blood,Urine Negative (Negative); Clarity,Urine Clear (Clear); Color,Urine Colorless (Yellow); Glucose,Urine (UA) >=1000 mg/dL (Normal); Ketones,Urine 80 mg/dL (Negative); Leukocyte Esterase,Urine Negative (Negative); Nitrite,Urine Negative (Negative); PH,Urine 5.5 pH Units (5.0-8.0); Protein,Urine Negative (Neg-Trace); RBC,Urine 0-3 per hpf (0-3); Specific Gravity,Urine 1.022 (1.010-1.025); Squamous Epithelial Cell,Urine Few per hpf (None-Few); Urobilinogen,Urine Normal (Normal)
[2021-11-27 20:16] LABS: BUN/Creatinine Ratio 15 (6-26); Blood Urea Nitrogen 18 mg/dL (6-20); Calcium 8.9 mg/dL (8.6-10.3); Carbon Dioxide 12 mEq/L (23-29); Chloride 92 mEq/L (98-107); Glucose 698 mg/dL (70-105); Osmolality,Calculated 295 (280-300); Potassium 4.1 mEq/L (3.5-5.1); Sodium 125 mEq/L (136-145); eGFR For African Americans > 60 (> 60); eGFR For Non-African Americans 56 (> 60)
[2021-11-27] MEDS ORDERED: cefTRIAXone 1,000 MG in 0.9 % Sodium Chloride Mini Bag 100 ML IVPB ONE (20:23)
[2021-11-27] MEDS ORDERED: *HR* Dextrose 50 % in Water (Syg) 50 ML SYRINGE IVP PRN (20:23)
[2021-11-27] MEDS ORDERED: Ondansetron 4 MG/2 ML VIAL IVP PRN (20:23)
[2021-11-27] MEDS ORDERED: Isovue-370 500 ML BOTTLE IVP ONE (20:54)
[2021-11-27 21:14] LABS: Estimated Average Glucose 326 mg/dl
[2021-11-27 21:27] LABS: Phosphorous 3.9 mg/dL (2.7-4.5)
[2021-11-27] MEDS ORDERED: Naloxone 0.4 MG/ML INJ IVP PRN (21:34)
[2021-11-27 22:06] LABS: Influenza A PCR Negative (Negative); Influenza B PCR Negative (Negative); Resp. Syncytial Virus PCR Negative (Negative)
[2021-11-27 22:24] LABS: SARS-CoV-2 by PCR (In House) Negative (Negative)
[2021-11-27] MEDS ORDERED: 0.9 % Sodium Chloride 1,000 ML IVC SCH (22:45)
[2021-11-27] MEDS ORDERED: Ondansetron ODT 4 MG TAB.RAPDIS SL PRN (22:50)
[2021-11-27] MEDS ORDERED: Melatonin 3 MG TABLET PO PRN (22:50)
[2021-11-28] MEDS ORDERED: Ketorolac 30 MG/ML VIAL IVP ONE
[2021-11-28 01:11] LABS: BUN/Creatinine Ratio 16 (6-26); Blood Urea Nitrogen 13 mg/dL (6-20); Calcium 7.8 mg/dL (8.6-10.3); Carbon Dioxide 15 mEq/L (23-29); Chloride 109 mEq/L (98-107); Glucose 217 mg/dL (70-105); Osmolality,Calculated 283 (280-300); Potassium 3.3 mEq/L (3.5-5.1); Sodium 133 mEq/L (136-145); eGFR For African Americans > 60 (> 60); eGFR For Non-African Americans > 60 (> 60)
[2021-11-28] MEDS: D5% in 0.45% NACL 1,000 ML IVC PRN ×3 (01:44→10:00)
[2021-11-28 03:21] LABS: Basophils % 0.2 %; Eosinophils # 0.1 K/mcL (0.0-0.6); Eosinophils % 2.4 %; Hematocrit 33.6 % (35.3-44.9); Hemoglobin 10.4 g/dL (11.5-15.4); Immature Granulocytes % 0.2 % (0-4); Lymphocytes # 2.2 K/mcL (0.6-4.6); Lymphocytes % 36.7 %; Mean Corpuscular Hemoglobin 25.9 pg (28.0-33.3); Mean Corpuscular Volume 83.6 fL (83.0-100.0); Mean Platelet Volume 9.1 fL (9.4-12.4); Monocytes # 0.7 K/mcL (0.0-1.3); Monocytes % 12.1 %; Neutrophils # 2.9 K/mcL (1.6-8.9); Platelet Count 243 K/mcL (140-400); Red Blood Count 4.02 M/mcL (3.82-4.97); Red Cell Distribution Width 17.8 % (11.5-14.5); Segmented Neutrophils % 48.4 %; White Blood Count 5.9 K/mcL (4.3-11.1)
[2021-11-28 03:29] LABS: INR 0.9; Prothrombin Time 9.9 Seconds (9.4-12.1)
[2021-11-28 03:35] LABS: Estimated Average Glucose 326 mg/dl
[2021-11-28 03:39] LABS: BUN/Creatinine Ratio 16 (6-26); Blood Urea Nitrogen 11 mg/dL (6-20); Calcium 7.6 mg/dL (8.6-10.3); Carbon Dioxide 16 mEq/L (23-29); Chloride 110 mEq/L (98-107); Glucose 203 mg/dL (70-105); Osmolality,Calculated 285 (280-300); Potassium 3.7 mEq/L (3.5-5.1); Sodium 135 mEq/L (136-145); eGFR For African Americans > 60 (> 60); eGFR For Non-African Americans > 60 (> 60)
[2021-11-28 03:42] LABS: BUN/Creatinine Ratio 15 (6-26); Blood Urea Nitrogen 11 mg/dL (6-20); Calcium 7.6 mg/dL (8.6-10.3); Carbon Dioxide 15 mEq/L (23-29); Chloride 110 mEq/L (98-107); Glucose 200 mg/dL (70-105); Magnesium 1.7 mg/dL (1.6-2.6); Osmolality,Calculated 285 (280-300); Phosphorous 2.5 mg/dL (2.7-4.5); Potassium 3.7 mEq/L (3.5-5.1); Sodium 135 mEq/L (136-145); eGFR For African Americans > 60 (> 60); eGFR For Non-African Americans > 60 (> 60)
[2021-11-28 08:01] LABS: BUN/Creatinine Ratio 13 (6-26); Blood Urea Nitrogen 9 mg/dL (6-20); Calcium 7.9 mg/dL (8.6-10.3); Carbon Dioxide 18 mEq/L (23-29); Chloride 111 mEq/L (98-107); Glucose 138 mg/dL (70-105); Osmolality,Calculated 281 (280-300); Potassium 3.5 mEq/L (3.5-5.1); Sodium 135 mEq/L (136-145); eGFR For African Americans > 60 (> 60); eGFR For Non-African Americans > 60 (> 60)
[2021-11-28 09:24] LABS: Albumin 3.4 g/dL (3.5-5.7)
[2021-11-28] MEDS ORDERED: *HR* Dextrose 50 % in Water (Syg) 50 ML SYRINGE IVP PRN (09:35)
[2021-11-28] MEDS ORDERED: D5% in Water 1,000 ML IVC PRN (09:35)
[2021-11-28] MEDS ORDERED: Dextrose Gel 15 GM/37.5 ML TUBE PO PRN ×2 (09:35)
[2021-11-28] MEDS ORDERED: Insulin DETEMIR 100 UNIT/ML X5UNITS SUBQ SCH (09:45)
[2021-11-28] MEDS: Insulin DETEMIR 100 UNIT/ML X5UNITS SUBQ SCH ×2 (10:38→20:23)
[2021-11-28] MEDS ORDERED: 0.9 % Sodium Chloride 1,000 ML ONE (12:02)
[2021-11-28] MEDS: Insulin LISPRO 300 UNITS/3 ML VIAL SUBQ SCH ×2 (13:08→16:45)
[2021-11-28] MEDS: cefTRIAXone 2,000 MG in 0.9 % Sodium Chloride Mini Bag 100 ML IVPB SCH (14:49)
[2021-11-28 15:13] LABS: BUN/Creatinine Ratio 10 (6-26); Blood Urea Nitrogen 8 mg/dL (6-20); Calcium 8.1 mg/dL (8.6-10.3); Carbon Dioxide 18 mEq/L (23-29); Chloride 105 mEq/L (98-107); Glucose 386 mg/dL (70-105); Osmolality,Calculated 284 (280-300); Potassium 4.2 mEq/L (3.5-5.1); Sodium 130 mEq/L (136-145); eGFR For African Americans > 60 (> 60); eGFR For Non-African Americans > 60 (> 60)
[2021-11-28] MEDS ORDERED: Acetaminophen 325 MG TABLET PO PRN (17:05)
[2021-11-28] MEDS ORDERED: Insulin LISPRO 300 UNITS/3 ML VIAL SUBQ SCH (21:00)
[2021-11-29] MEDS: Insulin LISPRO 300 UNITS/3 ML VIAL SUBQ SCH ×2 (07:35→12:49)
[2021-11-29] MEDS: cefTRIAXone 2,000 MG in 0.9 % Sodium Chloride Mini Bag 100 ML IVPB SCH (08:05)
[2021-11-29] MEDS: Insulin DETEMIR 100 UNIT/ML X5UNITS SUBQ SCH (08:06)
[2021-11-29 09:24] LABS: Basophils % 0.2 %; Eosinophils # 0.1 K/mcL (0.0-0.6); Hematocrit 33.9 % (35.3-44.9); Hemoglobin 10.7 g/dL (11.5-15.4); Immature Granulocytes % 0.2 % (0-4); Lymphocytes # 1.4 K/mcL (0.6-4.6); Lymphocytes % 31.5 %; Mean Corpuscular HGB Conc 31.6 g/dL (31.6-35.5); Mean Corpuscular Volume 82.3 fL (83.0-100.0); Mean Platelet Volume 9.9 fL (9.4-12.4); Monocytes # 0.5 K/mcL (0.0-1.3); Monocytes % 10.5 %; Neutrophils # 2.5 K/mcL (1.6-8.9); Platelet Count 211 K/mcL (140-400); Red Blood Count 4.12 M/mcL (3.82-4.97); Red Cell Distribution Width 18.4 % (11.5-14.5); Segmented Neutrophils % 55.6 %; White Blood Count 4.6 K/mcL (4.3-11.1)
[2021-11-29 09:27] LABS: VBG Ionized Calcium 1.13 mmol/L (1.15-1.35)
[2021-11-29 09:46] LABS: Alanine Aminotransferase 10 Units/L (7-52); Albumin 3.6 g/dL (3.5-5.7); Albumin/Globulin Ratio 1.3 (1.1-2.2); Alkaline Phosphatase 66 Units/L (34-104); Aspartate Amino Transferase 14 Units/L (13-39); BUN/Creatinine Ratio 8 (6-26); Bilirubin,Total 0.2 mg/dL (0.3-1.0); Blood Urea Nitrogen 6 mg/dL (6-20); Calcium 8.6 mg/dL (8.6-10.3); Carbon Dioxide 22 mEq/L (23-29); Chloride 107 mEq/L (98-107); Globulin 2.7 g/dL (2.4-3.5); Glucose 207 mg/dL (70-105); Magnesium 1.7 mg/dL (1.6-2.6); Osmolality,Calculated 288 (280-300); Sodium 137 mEq/L (136-145); Total Protein 6.3 g/dL (6.4-8.9); Troponin I < 0.03 ng/mL (< 0.04); eGFR For African Americans > 60 (> 60); eGFR For Non-African Americans > 60 (> 60)
[2021-11-29 10:43] VITALS: BP 153/93; PULSE 76; TEMP 98.5; O2SAT 100
[2021-11-29] MEDS ORDERED: Acetaminophen 325 MG TABLET PO PRN (12:34)
[2021-11-29] MEDS ORDERED: Insulin DETEMIR 100 UNIT/ML X5UNITS SUBQ SCH (21:00)
== END 2021-11-29 14:29 | disposition home or self-care (01) ==
LOC: 2NENU 16:16 → EMEROOARM 16:16 → OBSVTOIN 22:41 → INTOOBSV 22:41 → SUATTDRO 22:41 → 2NENU 23:26
PROVIDERS: ADMIT Student in an Organized Health Care Education/Training Program; ATTEND General Practice

== ENCOUNTER 2021-12-07 09:56 | Inpatient (IN) ==
[2021-12-07] MEDS ORDERED: Ondansetron 4 MG/2 ML VIAL IVP ONE (10:46)
[2021-12-07 12:39] LABS: Basophils % 0.4 %; Eosinophils % 0.5 %; Hematocrit 42.7 % (35.3-44.9); Hemoglobin 13.7 g/dL (11.5-15.4); Immature Granulocytes % 0.4 % (0-4); Lymphocytes # 1.7 K/mcL (0.6-4.6); Lymphocytes % 20.9 %; Mean Corpuscular HGB Conc 32.1 g/dL (31.6-35.5); Mean Corpuscular Hemoglobin 26.7 pg (28.0-33.3); Mean Corpuscular Volume 83.1 fL (83.0-100.0); Mean Platelet Volume 9.6 fL (9.4-12.4); Monocytes # 0.7 K/mcL (0.0-1.3); Monocytes % 8.7 %; Neutrophils # 5.6 K/mcL (1.6-8.9); Platelet Count 340 K/mcL (140-400); Red Blood Count 5.14 M/mcL (3.82-4.97); Red Cell Distribution Width 17.8 % (11.5-14.5); Segmented Neutrophils % 69.1 %; White Blood Count 8.1 K/mcL (4.3-11.1)
[2021-12-07 12:42] LABS: Bacteria,Urine Few per hpf (None-Few); Bilirubin,Urine Negative (Negative); Blood,Urine Moderate (Negative); Clarity,Urine Clear (Clear); Color,Urine Light-Yellow (Yellow); Glucose,Urine (UA) >=1000 mg/dL (Normal); Hyaline Casts,Urine Many per lpf (None Seen); Ketones,Urine 80 mg/dL (Negative); Leukocyte Esterase,Urine Moderate (Negative); Mucus,Urine Few per lpf (None-Few); Nitrite,Urine Negative (Negative); PH,Urine 5.5 pH Units (5.0-8.0); Protein,Urine 100 mg/dL (Neg-Trace); Specific Gravity,Urine 1.017 (1.010-1.025); Squamous Epithelial Cell,Urine Moderate per hpf (None-Few); Urobilinogen,Urine Normal (Normal)
[2021-12-07 13:08] LABS: Alanine Aminotransferase 11 Units/L (7-52); Albumin 4.7 g/dL (3.5-5.7); Albumin/Globulin Ratio 1.4 (1.1-2.2); Alkaline Phosphatase 91 Units/L (34-104); Aspartate Amino Transferase 14 Units/L (13-39); BUN/Creatinine Ratio 18 (6-26); Bilirubin,Total 0.3 mg/dL (0.3-1.0); Blood Urea Nitrogen 17 mg/dL (6-20); Calcium 9.8 mg/dL (8.6-10.3); Carbon Dioxide 12 mEq/L (23-29); Chloride 100 mEq/L (98-107); Globulin 3.3 g/dL (2.4-3.5); Glucose 149 mg/dL (70-105); Magnesium 2.1 mg/dL (1.6-2.6); Osmolality,Calculated 280 (280-300); Sodium 133 mEq/L (136-145); eGFR For African Americans > 60 (> 60); eGFR For Non-African Americans > 60 (> 60)
[2021-12-07 13:44] LABS: Estimated Average Glucose 329 mg/dl; Hemoglobin A1C 13.1 %
[2021-12-07] MEDS ORDERED: D5% in 0.45% NACL 1,000 ML IVC SCH (14:15)
[2021-12-07] MEDS ORDERED: *HR* Promethazine 25 MG/ML VIAL IM ONE (14:55)
[2021-12-07] MEDS ORDERED: Naloxone 0.4 MG/ML INJ IVP PRN (15:08)
[2021-12-07] MEDS ORDERED: Acetaminophen 325 MG TABLET PO PRN (15:08)
[2021-12-07] MEDS ORDERED: Ondansetron 4 MG/2 ML VIAL IVP PRN (15:08)
[2021-12-07] MEDS ORDERED: Insulin Regular, Human 100 UNIT/ML IV PRN ×2 (15:14→19:51)
[2021-12-07] MEDS ORDERED: *HR* Dextrose 50 % in Water (Syg) 50 ML SYRINGE IVP PRN ×2 (15:14→19:51)
[2021-12-07 18:52] LABS: VBG HCO3 11 mEq/L (21-27); VBG PCO2 23 mmHg (41-51); VBG PH 7.28 pH Units (7.32-7.42); VBG PO2 206 mmHg (25-50)
[2021-12-07 19:28] LABS: BUN/Creatinine Ratio 14 (6-26); Blood Urea Nitrogen 14 mg/dL (6-20); Calcium 9.1 mg/dL (8.6-10.3); Carbon Dioxide 8 mEq/L (23-29); Chloride 97 mEq/L (98-107); Glucose 492 mg/dL (70-105); Osmolality,Calculated 292 (280-300); Potassium 3.6 mEq/L (3.5-5.1); Sodium 130 mEq/L (136-145); eGFR For African Americans > 60 (> 60); eGFR For Non-African Americans > 60 (> 60)
[2021-12-07] MEDS ORDERED: D5% in 0.45% NACL w KCl 20 MEQ/1,000 ML MLS IVC PRN (19:51)
[2021-12-07] MEDS ORDERED: D5% in 0.45% NACL 1,000 ML IVC PRN (19:51)
[2021-12-07] MEDS ORDERED: 0.45 % Sodium Chloride w/KCl 20 MEQ/1,000 ML MLS IVC SCH ×2 (20:00)
[2021-12-07] MEDS ORDERED: 0.9 % Sodium Chloride w KCl 20 MEQ/1,000 ML MLS IVC SCH ×2 (20:00)
[2021-12-07] MEDS ORDERED: 0.9 % Sodium Chloride 1,000 ML IVC SCH ×3 (20:00)
[2021-12-07] MEDS ORDERED: 0.9 % Sodium Chloride 1,000 ML IVC PRN (20:21)
[2021-12-07] MEDS ORDERED: 0.45 % Sodium Chloride w/KCl 20 MEQ/1,000 ML MLS IVC PRN ×2 (20:21→21:24)
[2021-12-07] MEDS: 0.9 % Sodium Chloride w KCl 20 MEQ/1,000 ML MLS IVC PRN (21:02)
[2021-12-07 23:28] LABS: BUN/Creatinine Ratio 15 (6-26); Blood Urea Nitrogen 15 mg/dL (6-20); Calcium 8.2 mg/dL (8.6-10.3); Carbon Dioxide 8 mEq/L (23-29); Chloride 109 mEq/L (98-107); Glucose 391 mg/dL (70-105); Osmolality,Calculated 299 (280-300); Potassium 3.7 mEq/L (3.5-5.1); Sodium 136 mEq/L (136-145); eGFR For African Americans > 60 (> 60); eGFR For Non-African Americans > 60 (> 60)
[2021-12-08] MEDS: 0.9 % Sodium Chloride w KCl 20 MEQ/1,000 ML MLS IVC PRN (00:27)
[2021-12-08] MEDS: D5% in 0.45% NACL w KCl 20 MEQ/1,000 ML MLS IVC PRN ×2 (02:07→06:11)
[2021-12-08 04:28] LABS: Basophils % 0.3 %; Eosinophils % 0.7 %; Hematocrit 35.3 % (35.3-44.9); Immature Granulocytes % 0.3 % (0-4); Lymphocytes # 1.9 K/mcL (0.6-4.6); Lymphocytes % 31.4 %; Mean Corpuscular HGB Conc 30.6 g/dL (31.6-35.5); Mean Corpuscular Hemoglobin 26.2 pg (28.0-33.3); Mean Corpuscular Volume 85.5 fL (83.0-100.0); Mean Platelet Volume 10.1 fL (9.4-12.4); Monocytes # 0.5 K/mcL (0.0-1.3); Monocytes % 8.2 %; Neutrophils # 3.6 K/mcL (1.6-8.9); Platelet Count 264 K/mcL (140-400); Red Blood Count 4.13 M/mcL (3.82-4.97); Segmented Neutrophils % 59.1 %; White Blood Count 6.1 K/mcL (4.3-11.1)
[2021-12-08 04:29] LABS: VBG HCO3 15 mEq/L (21-27); VBG PCO2 35 mmHg (41-51); VBG PH 7.25 pH Units (7.32-7.42); VBG PO2 77 mmHg (25-50)
[2021-12-08 04:32] LABS: Hemoglobin 10.8 g/dL (11.5-15.4)
[2021-12-08 04:47] LABS: BUN/Creatinine Ratio 13 (6-26); Blood Urea Nitrogen 11 mg/dL (6-20); Calcium 7.8 mg/dL (8.6-10.3); Carbon Dioxide 15 mEq/L (23-29); Chloride 115 mEq/L (98-107); Glucose 208 mg/dL (70-105); Osmolality,Calculated 291 (280-300); Potassium 3.4 mEq/L (3.5-5.1); Sodium 138 mEq/L (136-145); eGFR For African Americans > 60 (> 60); eGFR For Non-African Americans > 60 (> 60)
[2021-12-08] MEDS ORDERED: *HR* Enoxaparin 40 MG/0.4 ML SYRINGE SQ SCH (06:00)
[2021-12-08] MEDS ORDERED: Acetaminophen 325 MG TABLET PO PRN ×2 (09:03→10:19)
[2021-12-08] MEDS ORDERED: Sodium Bicarbonate 75 MEQ in 0.45 % Sodium Chloride 1,000 ML IVC SCH ×2 (09:03→10:19)
[2021-12-08] MEDS ORDERED: Naloxone 0.4 MG/ML INJ IVP PRN (10:19)
[2021-12-08] MEDS ORDERED: *HR* Dextrose 50 % in Water (Syg) 50 ML SYRINGE IVP PRN (10:19)
[2021-12-08] MEDS ORDERED: Ondansetron 4 MG/2 ML VIAL IVP PRN (10:19)
[2021-12-08] MEDS ORDERED: Apixaban 5 MG TABLET PO SCH (10:19)
[2021-12-08] MEDS: Insulin LISPRO 300 UNITS/3 ML VIAL SUBQ SCH ×2 (11:28→18:02)
[2021-12-08] MEDS ORDERED: Insulin LISPRO 300 UNITS/3 ML VIAL SUBQ SCH (11:30)
[2021-12-08 12:02] LABS: BUN/Creatinine Ratio 11 (6-26); Blood Urea Nitrogen 8 mg/dL (6-20); Calcium 8.1 mg/dL (8.6-10.3); Carbon Dioxide 13 mEq/L (23-29); Chloride 108 mEq/L (98-107); Glucose 332 mg/dL (70-105); Osmolality,Calculated 287 (280-300); Potassium 5.2 mEq/L (3.5-5.1); Sodium 133 mEq/L (136-145); eGFR For African Americans > 60 (> 60); eGFR For Non-African Americans > 60 (> 60)
[2021-12-08 16:22] VITALS: TEMP 98.2
[2021-12-08 20:47] VITALS: BP 116/78; PULSE 85; O2SAT 98
== END 2021-12-08 21:30 | disposition left against medical advice (07) | DRG 420 ==
LOC: 2NNU 09:56 → EMEROOARM 09:56 → 2NNU 17:28 → 3ANU 12-08 15:39
PROVIDERS: ADMIT Pharmacist; ATTEND Pharmacist

== ENCOUNTER 2021-12-14 22:09 | Observation (INO) ==
[2021-12-14] MEDS ORDERED: Isovue-370 500 ML BOTTLE IVP ONE (22:15)
[2021-12-14] MEDS ORDERED: 0.9 % Sodium Chloride 1,000 ML IVC SCH (22:15)
[2021-12-14] MEDS ORDERED: Ketorolac 30 MG/ML VIAL IVP ONE (22:22)
[2021-12-14] MEDS ORDERED: diazePAM 5 MG TABLET PO ONE (22:22)
[2021-12-14] MEDS ORDERED: Morphine Sulfate 2 MG/ML SYRINGE IVP ONE (22:23)
[2021-12-14] MEDS ORDERED: Ondansetron 4 MG/2 ML VIAL IVP ONE (22:43)
[2021-12-14 23:01] LABS: Basophils % 0.3 %; Eosinophils % 0.1 %; Hematocrit 43.9 % (35.3-44.9); Immature Granulocytes % 0.6 % (0-4); Lymphocytes # 2.2 K/mcL (0.6-4.6); Lymphocytes % 16.6 %; Mean Corpuscular HGB Conc 31.2 g/dL (31.6-35.5); Mean Corpuscular Hemoglobin 27.1 pg (28.0-33.3); Mean Corpuscular Volume 86.9 fL (83.0-100.0); Mean Platelet Volume 9.7 fL (9.4-12.4); Monocytes # 0.8 K/mcL (0.0-1.3); Monocytes % 5.9 %; Neutrophils # 10.3 K/mcL (1.6-8.9); Platelet Count 355 K/mcL (140-400); Red Blood Count 5.05 M/mcL (3.82-4.97); Red Cell Distribution Width 18.9 % (11.5-14.5); Segmented Neutrophils % 76.5 %
[2021-12-14 23:02] LABS: Hemoglobin 13.7 g/dL (11.5-15.4); White Blood Count 13.4 K/mcL (4.3-11.1)
[2021-12-14 23:08] LABS: VBG HCO3 8 mEq/L (21-27); VBG PCO2 25 mmHg (41-51); VBG PO2 52 mmHg (25-50)
[2021-12-14 23:10] LABS: Bacteria,Urine Few per hpf (None-Few); Bilirubin,Urine Negative (Negative); Blood,Urine Negative (Negative); Clarity,Urine Clear (Clear); Color,Urine Colorless (Yellow); Glucose,Urine (UA) >=1000 mg/dL (Normal); Ketones,Urine >150 mg/dL (Negative); Leukocyte Esterase,Urine Negative (Negative); Mucus,Urine Few per lpf (None-Few); Nitrite,Urine Negative (Negative); PH,Urine 5.5 pH Units (5.0-8.0); Protein,Urine 30 mg/dL (Neg-Trace); Specific Gravity,Urine 1.023 (1.010-1.025); Squamous Epithelial Cell,Urine Few per hpf (None-Few); Urobilinogen,Urine Normal (Normal)
[2021-12-14 23:20] LABS: Alanine Aminotransferase 12 Units/L (7-52); Albumin 4.8 g/dL (3.5-5.7); Albumin/Globulin Ratio 1.3 (1.1-2.2); Alkaline Phosphatase 114 Units/L (34-104); Aspartate Amino Transferase 13 Units/L (13-39); BUN/Creatinine Ratio 14 (6-26); Bilirubin,Direct 0.1 mg/dL (0.0-0.2); Bilirubin,Indirect 0.2 mg/dL (0.0-1.0); Bilirubin,Total 0.3 mg/dL (0.3-1.0); Blood Urea Nitrogen 18 mg/dL (6-20); Calcium 9.9 mg/dL (8.6-10.3); Carbon Dioxide 8 mEq/L (23-29); Chloride 93 mEq/L (98-107); Globulin 3.8 g/dL (2.4-3.5); Glucose 654 mg/dL (70-105); Lipase 96 Units/L (11-82); Magnesium 2.2 mg/dL (1.6-2.6); Osmolality,Calculated 303 (280-300); Potassium 3.8 mEq/L (3.5-5.1); Sodium 130 mEq/L (136-145); Total Protein 8.6 g/dL (6.4-8.9); eGFR For African Americans > 60 (> 60); eGFR For Non-African Americans 52 (> 60)
[2021-12-14] MEDS ORDERED: *HR* Dextrose 50 % in Water (Syg) 50 ML SYRINGE IVP PRN (23:52)
[2021-12-14] MEDS ORDERED: D5% in 0.45% NACL w KCl 20 MEQ/1,000 ML MLS IVC PRN (23:52)
[2021-12-15] MEDS ORDERED: 0.9 % Sodium Chloride 1,000 ML IVC ONE (00:01)
[2021-12-15 00:05] LABS: Adenovirus Not Detected (Not Detect); Bordetella Pertussis Not Detected (Not Detect); Chlamydophila pneumoniae Not Detected (Not Detect); Coronavirus 229E Not Detected (Not Detect); Coronavirus HKU1 Not Detected (Not Detect); Coronavirus NL63 Not Detected (Not Detect); Coronavirus OC43 Not Detected (Not Detect); Human Metapneumovirus Not Detected (Not Detect); Human Rhinovirus/Enterovirus Not Detected (Not Detect); Influenza A Subtype 2009 H1 Not Detected (Not Detect); Influenza B Not Detected (Not Detect); Mycoplasma pneumoniae Not Detected (Not Detect); Parainfluenza Virus 1 Not Detected (Not Detect); Parainfluenza Virus 2 Not Detected (Not Detect); Parainfluenza Virus 3 Not Detected (Not Detect); Parainfluenza Virus 4 Not Detected (Not Detect); Respiratory Syncytial Virus Not Detected (Not Detect); SARS-CoV-2 Not Detected (Not Detect)
[2021-12-15 00:34] LABS: Estimated Average Glucose 329 mg/dl; Hemoglobin A1C 13.1 %
[2021-12-15] MEDS ORDERED: Prochlorperazine 10 MG/2 ML VIAL IVP ONE (01:24)
[2021-12-15 01:40] LABS: Amphetamine Screen,Urine Negative ng/mL (Cutoff=1000); Barbiturate Screen,Urine Negative ng/mL (Cutoff=200); Benzodiazepines Screen,Urine Negative ng/mL (Cutoff=200); Cannabinoid Screen,Urine Negative ng/mL (Cutoff = 50); Cocaine Screen,Urine Negative ng/mL (Cutoff= 300); Opiate Screen,Urine Negative ng/mL (Cutoff=300); Phencyclidine Screen,Urine Negative ng/mL (Cutoff=25)
[2021-12-15] MEDS: 0.45 % Sodium Chloride w/KCl 20 MEQ/1,000 ML MLS IVC SCH ×2 (01:44→06:36)
[2021-12-15] MEDS ORDERED: Ondansetron 4 MG/2 ML VIAL IVP PRN (04:00)
[2021-12-15] MEDS ORDERED: Melatonin 3 MG TABLET PO PRN (04:40)
[2021-12-15] MEDS ORDERED: Naloxone 0.4 MG/ML INJ IVP PRN (04:40)
[2021-12-15 05:15] LABS: VBG HCO3 10 mEq/L (21-27); VBG PCO2 21 mmHg (41-51); VBG PH 7.29 pH Units (7.32-7.42); VBG PO2 183 mmHg (25-50)
[2021-12-15 05:37] LABS: BUN/Creatinine Ratio 13 (6-26); Blood Urea Nitrogen 14 mg/dL (6-20); Calcium 8.3 mg/dL (8.6-10.3); Carbon Dioxide 10 mEq/L (23-29); Chloride 110 mEq/L (98-107); Glucose 286 mg/dL (70-105); Osmolality,Calculated 297 (280-300); Phosphorous 3.3 mg/dL (2.7-4.5); Potassium 4.3 mEq/L (3.5-5.1); Sodium 138 mEq/L (136-145); eGFR For African Americans > 60 (> 60); eGFR For Non-African Americans > 60 (> 60)
[2021-12-15 05:45] LABS: Mean Corpuscular Volume 82.9 fL (83.0-100.0); Monocytes % 7.8 %; Red Cell Distribution Width 18.6 % (11.5-14.5)
[2021-12-15 05:47] LABS: Basophils % 0.2 %; Hemoglobin 11.6 g/dL (11.5-15.4); Immature Granulocytes % 0.7 % (0-4); Lymphocytes # 1.9 K/mcL (0.6-4.6); Lymphocytes % 19.9 %; Mean Corpuscular HGB Conc 33.1 g/dL (31.6-35.5); Mean Corpuscular Hemoglobin 27.5 pg (28.0-33.3); Mean Platelet Volume 10.1 fL (9.4-12.4); Monocytes # 0.7 K/mcL (0.0-1.3); Platelet Count 251 K/mcL (140-400); Red Blood Count 4.22 M/mcL (3.82-4.97); Segmented Neutrophils % 71.4 %; White Blood Count 9.3 K/mcL (4.3-11.1)
[2021-12-15 05:50] LABS: Ethanol < 10 mg/dL (Less than 10)
[2021-12-15 05:54] LABS: Neutrophils # 6.6 K/mcL (1.6-8.9)
[2021-12-15 06:52] LABS: Platelet Estimate Normal (Normal)
[2021-12-15] MEDS: Apixaban 5 MG TABLET PO SCH ×2 (08:00→20:47)
[2021-12-15 10:44] LABS: VBG HCO3 18 mEq/L (21-27); VBG PCO2 35 mmHg (41-51); VBG PH 7.33 pH Units (7.32-7.42); VBG PO2 164 mmHg (25-50)
[2021-12-15 11:01] LABS: BUN/Creatinine Ratio 11 (6-26); Blood Urea Nitrogen 9 mg/dL (6-20); Calcium 8.4 mg/dL (8.6-10.3); Carbon Dioxide 19 mEq/L (23-29); Chloride 112 mEq/L (98-107); Glucose 138 mg/dL (70-105); Osmolality,Calculated 287 (280-300); Potassium 3.6 mEq/L (3.5-5.1); Sodium 138 mEq/L (136-145); eGFR For African Americans > 60 (> 60); eGFR For Non-African Americans > 60 (> 60)
[2021-12-15] MEDS ORDERED: Dextrose Gel 15 GM/37.5 ML TUBE PO PRN ×2 (12:14)
[2021-12-15] MEDS ORDERED: D5% in Water 1,000 ML IVC PRN (12:14)
[2021-12-15] MEDS ORDERED: *HR* Dextrose 50 % in Water (Syg) 50 ML SYRINGE IVP PRN (12:14)
[2021-12-15] MEDS ORDERED: Insulin DETEMIR 100 UNIT/ML X5UNITS SUBQ ONE (12:15)
[2021-12-15] MEDS: Insulin LISPRO 300 UNITS/3 ML VIAL SUBQ SCH (17:02)
[2021-12-15 17:15] LABS: BUN/Creatinine Ratio 10 (6-26); Blood Urea Nitrogen 9 mg/dL (6-20); Calcium 8.1 mg/dL (8.6-10.3); Carbon Dioxide 18 mEq/L (23-29); Chloride 107 mEq/L (98-107); Glucose 237 mg/dL (70-105); Osmolality,Calculated 282 (280-300); Potassium 3.8 mEq/L (3.5-5.1); Sodium 133 mEq/L (136-145); eGFR For African Americans > 60 (> 60); eGFR For Non-African Americans > 60 (> 60)
[2021-12-15] MEDS ORDERED: Insulin DETEMIR 100 UNIT/ML X5UNITS SUBQ SCH (21:00)
[2021-12-15] MEDS ORDERED: Insulin LISPRO 300 UNITS/3 ML VIAL SUBQ SCH (21:00)
[2021-12-16] MEDS: Clotrimazole 1% CRM 15 GM TUBE TP SCH ×2 (05:05→10:14)
[2021-12-16] MEDS ORDERED: Insulin DETEMIR 100 UNIT/ML X5UNITS SUBQ SCH (09:45)
[2021-12-16] MEDS: Insulin LISPRO 300 UNITS/3 ML VIAL SUBQ SCH ×2 (10:12→12:45)
[2021-12-16] MEDS: Apixaban 5 MG TABLET PO SCH (10:13)
[2021-12-16 11:17] LABS: Hematocrit 39.6 % (35.3-44.9); Hemoglobin 12.7 g/dL (11.5-15.4); Mean Corpuscular HGB Conc 32.1 g/dL (31.6-35.5); Mean Corpuscular Hemoglobin 26.8 pg (28.0-33.3); Mean Corpuscular Volume 83.7 fL (83.0-100.0); Mean Platelet Volume 9.4 fL (9.4-12.4); Platelet Count 262 K/mcL (140-400); Red Blood Count 4.73 M/mcL (3.82-4.97); Red Cell Distribution Width 18.8 % (11.5-14.5); White Blood Count 5.9 K/mcL (4.3-11.1)
[2021-12-16 11:35] VITALS: BP 148/102; PULSE 97; TEMP 98.2; O2SAT 100
[2021-12-16 11:39] LABS: Alanine Aminotransferase 10 Units/L (7-52); Albumin 4.4 g/dL (3.5-5.7); Albumin/Globulin Ratio 1.3 (1.1-2.2); Alkaline Phosphatase 99 Units/L (34-104); Aspartate Amino Transferase 14 Units/L (13-39); BUN/Creatinine Ratio 13 (6-26); Bilirubin,Total 0.3 mg/dL (0.3-1.0); Blood Urea Nitrogen 12 mg/dL (6-20); Calcium 9.6 mg/dL (8.6-10.3); Carbon Dioxide 25 mEq/L (23-29); Chloride 101 mEq/L (98-107); Globulin 3.5 g/dL (2.4-3.5); Glucose 179 mg/dL (70-105); Magnesium 1.9 mg/dL (1.6-2.6); Osmolality,Calculated 284 (280-300); Phosphorous 2.1 mg/dL (2.7-4.5); Potassium 3.4 mEq/L (3.5-5.1); Sodium 135 mEq/L (136-145); Total Protein 7.9 g/dL (6.4-8.9); eGFR For African Americans > 60 (> 60); eGFR For Non-African Americans > 60 (> 60)
== END 2021-12-16 15:07 | disposition home or self-care (01) ==
LOC: EMEROOARM 22:09 → 2NNU 22:09 → SUATTDRO 12-15 00:15 → 2NNU 12-15 00:50
PROVIDERS: ADMIT Internal Medicine; ATTEND Internal Medicine

== ENCOUNTER 2022-02-03 11:11 | Observation (INO) ==
[2022-02-03] MEDS ORDERED: *HR* FentaNYL (PF) 100 MCG/2 ML VIAL IVP ONE (13:13)
[2022-02-03] MEDS: 0.9 % Sodium Chloride 1,000 ML IVC SCH ×6 (14:02→22:03)
[2022-02-03 14:48] LABS: Basophils % 0.3 %; Hemoglobin 13.8 g/dL (11.5-15.4)
[2022-02-03 14:50] LABS: Basophils # 0.1 K/mcL (0.0-0.2); Immature Granulocytes % 1.1 % (0-4); Lymphocytes # 1.4 K/mcL (0.6-4.6); Lymphocytes % 4.3 %; Mean Corpuscular HGB Conc 30.7 g/dL (31.6-35.5); Mean Corpuscular Hemoglobin 29.7 pg (28.0-33.3); Mean Corpuscular Volume 96.8 fL (83.0-100.0); Mean Platelet Volume 10.2 fL (9.4-12.4); Monocytes % 3.8 %; Neutrophils # 29.7 K/mcL (1.6-8.9); Platelet Count 430 K/mcL (140-400); Red Blood Count 4.65 M/mcL (3.82-4.97); Red Cell Distribution Width 17.1 % (11.5-14.5); Segmented Neutrophils % 90.5 %
[2022-02-03 15:07] LABS: Monocytes # 1.3 K/mcL (0.0-1.3); White Blood Count 32.8 K/mcL (4.3-11.1)
[2022-02-03 15:12] LABS: BUN/Creatinine Ratio 21 (6-26); Blood Urea Nitrogen 29 mg/dL (6-20); Calcium 8.9 mg/dL (8.6-10.3); Carbon Dioxide 4 mEq/L (23-29); Chloride 95 mEq/L (98-107); Glucose 696 mg/dL (70-105); Magnesium 2.4 mg/dL (1.6-2.6); Osmolality,Calculated 315 (280-300); Potassium 4.8 mEq/L (3.5-5.1); Sodium 133 mEq/L (136-145); Troponin I < 0.03 ng/mL (< 0.04); eGFR For African Americans 57 (> 60); eGFR For Non-African Americans 47 (> 60)
[2022-02-03] MEDS ORDERED: *HR* HYDROmorphone (PF) 1 MG/ML SYRINGE IVP ONE (15:37)
[2022-02-03 15:48] LABS: Large Platelets Present (Not Present)
[2022-02-03 15:49] LABS: Toxic Granulation Present (Not Present)
[2022-02-03] MEDS ORDERED: *HR* Dextrose 50 % in Water (Syg) 50 ML SYRINGE IVP PRN ×2 (16:16→20:35)
[2022-02-03] MEDS ORDERED: Ondansetron 4 MG/2 ML VIAL IVP PRN (16:16)
[2022-02-03] MEDS ORDERED: Acetaminophen 325 MG TABLET PO PRN (16:16)
[2022-02-03] MEDS ORDERED: Insulin Regular, Human 100 UNIT/ML IV PRN ×2 (16:16→20:35)
[2022-02-03] MEDS ORDERED: Naloxone 0.4 MG/ML INJ IVP PRN (16:16)
[2022-02-03] MEDS: 0.9 % Sodium Chloride w KCl 20 MEQ/1,000 ML MLS IVC SCH ×3 (18:37→21:31)
[2022-02-03] MEDS: D5% in 0.45% NACL w KCl 20 MEQ/1,000 ML MLS IVC PRN ×2 (19:47→23:40)
[2022-02-03] MEDS ORDERED: D5% in 0.45% NACL 1,000 ML IVC PRN (20:35)
[2022-02-03] MEDS ORDERED: D5% in 0.45% NACL w KCl 20 MEQ/1,000 ML MLS IVC PRN (20:35)
[2022-02-03 20:52] LABS: Bacteria,Urine Few per hpf (None-Few); Bilirubin,Urine Negative (Negative); Blood,Urine Small (Negative); Clarity,Urine Clear (Clear); Color,Urine Light-Yellow (Yellow); Glucose,Urine (UA) >=1000 mg/dL (Normal); Ketones,Urine >150 mg/dL (Negative); Leukocyte Esterase,Urine Negative (Negative); Mucus,Urine Few per lpf (None-Few); Nitrite,Urine Negative (Negative); PH,Urine 5.5 pH Units (5.0-8.0); Protein,Urine 70 mg/dL (Neg-Trace); RBC,Urine 0-3 per hpf (0-3); Specific Gravity,Urine 1.017 (1.010-1.025); Squamous Epithelial Cell,Urine Few per hpf (None-Few); Urobilinogen,Urine Normal (Normal); WBC,Urine 0-3 per hpf (0-3)
[2022-02-03] MEDS: 0.45 % Sodium Chloride w/KCl 20 MEQ/1,000 ML MLS IVC SCH ×2 (21:33→21:34)
[2022-02-03] MEDS: Apixaban 5 MG TABLET PO SCH (21:34)
[2022-02-03 21:47] LABS: BUN/Creatinine Ratio 22 (6-26); Blood Urea Nitrogen 23 mg/dL (6-20); Calcium 7.8 mg/dL (8.6-10.3); Carbon Dioxide 9 mEq/L (23-29); Chloride 112 mEq/L (98-107); Glucose 168 mg/dL (70-105); Osmolality,Calculated 296 (280-300); Potassium 4.1 mEq/L (3.5-5.1); Sodium 139 mEq/L (136-145); eGFR For African Americans > 60 (> 60); eGFR For Non-African Americans > 60 (> 60)
[2022-02-04 01:11] LABS: BUN/Creatinine Ratio 19 (6-26); Blood Urea Nitrogen 19 mg/dL (6-20); Calcium 7.8 mg/dL (8.6-10.3); Carbon Dioxide 15 mEq/L (23-29); Chloride 114 mEq/L (98-107); Glucose 169 mg/dL (70-105); Osmolality,Calculated 292 (280-300); Potassium 3.5 mEq/L (3.5-5.1); Sodium 138 mEq/L (136-145); eGFR For African Americans > 60 (> 60); eGFR For Non-African Americans > 60 (> 60)
[2022-02-04] MEDS: 0.9 % Sodium Chloride w KCl 20 MEQ/1,000 ML MLS IVC SCH ×11 (03:22→10:51)
[2022-02-04] MEDS: 0.45 % Sodium Chloride w/KCl 20 MEQ/1,000 ML MLS IVC SCH ×8 (03:23→10:51)
[2022-02-04] MEDS: 0.9 % Sodium Chloride 1,000 ML IVC SCH ×8 (03:23→10:48)
[2022-02-04] MEDS: D5% in 0.45% NACL w KCl 20 MEQ/1,000 ML MLS IVC PRN (03:53)
[2022-02-04 04:46] LABS: VBG HCO3 17 mEq/L (21-27); VBG PCO2 37 mmHg (41-51); VBG PH 7.28 pH Units (7.32-7.42); VBG PO2 177 mmHg (25-50)
[2022-02-04 04:52] LABS: Basophils % 0.1 %; Hematocrit 31.7 % (35.3-44.9); Hemoglobin 10.9 g/dL (11.5-15.4); Immature Granulocytes % 0.4 % (0-4); Lymphocytes % 12.2 %; Mean Corpuscular HGB Conc 34.4 g/dL (31.6-35.5); Mean Corpuscular Hemoglobin 30.4 pg (28.0-33.3); Mean Corpuscular Volume 88.5 fL (83.0-100.0); Mean Platelet Volume 9.3 fL (9.4-12.4); Monocytes # 1.9 K/mcL (0.0-1.3); Monocytes % 11.5 %; Neutrophils # 12.2 K/mcL (1.6-8.9); Platelet Count 263 K/mcL (140-400); Red Blood Count 3.58 M/mcL (3.82-4.97); Red Cell Distribution Width 16.8 % (11.5-14.5); Segmented Neutrophils % 75.8 %; White Blood Count 16.1 K/mcL (4.3-11.1)
[2022-02-04 04:53] LABS: BUN/Creatinine Ratio 19 (6-26); Blood Urea Nitrogen 16 mg/dL (6-20); Calcium 7.9 mg/dL (8.6-10.3); Carbon Dioxide 16 mEq/L (23-29); Chloride 116 mEq/L (98-107); Glucose 87 mg/dL (70-105); Osmolality,Calculated 289 (280-300); Potassium 3.5 mEq/L (3.5-5.1); Sodium 139 mEq/L (136-145); eGFR For African Americans > 60 (> 60); eGFR For Non-African Americans > 60 (> 60)
[2022-02-04 04:58] LABS: Magnesium 1.7 mg/dL (1.6-2.6); Phosphorous 1.1 mg/dL (2.7-4.5)
[2022-02-04 08:36] LABS: Hematocrit 30.3 % (35.3-44.9); Hemoglobin 10.6 g/dL (11.5-15.4); Mean Corpuscular Hemoglobin 30.8 pg (28.0-33.3); Mean Corpuscular Volume 88.1 fL (83.0-100.0); Mean Platelet Volume 9.6 fL (9.4-12.4); Platelet Count 237 K/mcL (140-400); Red Blood Count 3.44 M/mcL (3.82-4.97); Red Cell Distribution Width 17.1 % (11.5-14.5); White Blood Count 12.9 K/mcL (4.3-11.1)
[2022-02-04 08:37] LABS: VBG HCO3 16 mEq/L (21-27); VBG PCO2 29 mmHg (41-51); VBG PH 7.34 pH Units (7.32-7.42); VBG PO2 144 mmHg (25-50)
[2022-02-04] MEDS ORDERED: *HR* Dextrose 50 % in Water (Syg) 50 ML SYRINGE IVP PRN (08:40)
[2022-02-04] MEDS ORDERED: Dextrose 4 GM Chewable Tablets PO PRN ×2 (08:40)
[2022-02-04] MEDS ORDERED: D5% in Water 1,000 ML IVC PRN (08:40)
[2022-02-04 08:56] LABS: BUN/Creatinine Ratio 18 (6-26); Blood Urea Nitrogen 14 mg/dL (6-20); Calcium 7.8 mg/dL (8.6-10.3); Carbon Dioxide 16 mEq/L (23-29); Chloride 116 mEq/L (98-107); Glucose 104 mg/dL (70-105); Osmolality,Calculated 285 (280-300); Potassium 3.8 mEq/L (3.5-5.1); Sodium 137 mEq/L (136-145); eGFR For African Americans > 60 (> 60); eGFR For Non-African Americans > 60 (> 60)
[2022-02-04 09:21] LABS: ABG PCO2 < 13 mmHg (35-45); ABG PH 7.05 pH Units (7.32-7.45); ABG PO2 124 mmHg (85-104)
[2022-02-04 09:28] LABS: Estimated Average Glucose 364 mg/dl; Hemoglobin A1C 14.3 %
[2022-02-04] MEDS: Apixaban 5 MG TABLET PO SCH ×3 (09:32→21:37)
[2022-02-04] MEDS: Aspirin Enteric Coated 81 MG Tablet PO SCH (09:32)
[2022-02-04] MEDS: Insulin DETEMIR 100 UNIT/ML X5UNITS SUBQ SCH ×2 (10:06→21:35)
[2022-02-04] MEDS: Insulin LISPRO 300 UNITS/3 ML VIAL SUBQ SCH ×2 (12:14→17:24)
[2022-02-04] MEDS ORDERED: Insulin LISPRO 300 UNITS/3 ML VIAL SUBQ SCH (21:00)
[2022-02-05 02:39] LABS: Basophils % 0.1 %; Eosinophils # 0.1 K/mcL (0.0-0.6); Eosinophils % 1.2 %; Hematocrit 30.4 % (35.3-44.9); Hemoglobin 10.2 g/dL (11.5-15.4); Immature Granulocytes % 0.2 % (0-4); Lymphocytes # 2.3 K/mcL (0.6-4.6); Lymphocytes % 28.3 %; Mean Corpuscular HGB Conc 33.6 g/dL (31.6-35.5); Mean Corpuscular Hemoglobin 29.7 pg (28.0-33.3); Mean Corpuscular Volume 88.4 fL (83.0-100.0); Mean Platelet Volume 9.4 fL (9.4-12.4); Monocytes # 0.7 K/mcL (0.0-1.3); Monocytes % 8.1 %; Platelet Count 211 K/mcL (140-400); Red Blood Count 3.44 M/mcL (3.82-4.97); Red Cell Distribution Width 17.2 % (11.5-14.5); Segmented Neutrophils % 62.1 %; White Blood Count 8.1 K/mcL (4.3-11.1)
[2022-02-05 03:01] LABS: BUN/Creatinine Ratio 20 (6-26); Blood Urea Nitrogen 12 mg/dL (6-20); Calcium 8.2 mg/dL (8.6-10.3); Carbon Dioxide 17 mEq/L (23-29); Chloride 111 mEq/L (98-107); Glucose 184 mg/dL (70-105); Osmolality,Calculated 285 (280-300); Potassium 3.5 mEq/L (3.5-5.1); Sodium 135 mEq/L (136-145); eGFR For African Americans > 60 (> 60); eGFR For Non-African Americans > 60 (> 60)
[2022-02-05 07:47] VITALS: BP 122/86; PULSE 98; TEMP 98.8; O2SAT 98
[2022-02-05] MEDS: Apixaban 5 MG TABLET PO SCH (08:19)
[2022-02-05] MEDS: Insulin DETEMIR 100 UNIT/ML X5UNITS SUBQ SCH (08:19)
[2022-02-05] MEDS: Aspirin Enteric Coated 81 MG Tablet PO SCH (08:19)
[2022-02-05] MEDS: Insulin LISPRO 300 UNITS/3 ML VIAL SUBQ SCH (08:20)
== END 2022-02-05 11:31 | disposition home or self-care (01) ==
LOC: EMEROOARM 11:11 → INTOOBSV 16:22 → 2NNU 16:22 → 3BNU 02-04 10:30
PROVIDERS: ADMIT Internal Medicine; ATTEND Internal Medicine